=== PATIENT | female | born 1960 | race African-American/Black ===

== ENCOUNTER 2018-08-16 12:15 | Outpatient (CLI) | payer OTHER | END 2018-08-16 12:16 | disposition home or self-care (01) | LOC: BICMAMMO 12:15 | PROVIDERS: ATTEND Family Medicine | DX: Z12.31 Encounter for screening mammogram for malignant neoplasm of breast (principal); Z80.3 Family history of malignant neoplasm of breast | CPT/HCPCS: 77063; 77067 ==

== ENCOUNTER 2019-04-20 22:53 | Inpatient (IN) | payer SELFPAY ==
[2019-04-20 23:32] LABS: Anion Gap 19 mmol/L (10-20); BUN (Urea Nitrogen) 76 mg/dL (9.8-20.1); Calc. Creatinine Clearance 0 mL/min (70-130); Calcium 10.2 mg/dL (7.8-10.44); Carbon Dioxide 17 mmol/L (22-29); Chloride 116 mmol/L (98-107); Estimated GFR-MDRD 16; Potassium 4.3 mmol/L (3.5-5.1); Sodium 148 mmol/L (136-145)
[2019-04-20 23:44] LABS: Glucose 809 mg/dL (70-105)
[2019-04-21 01:51] LABS: Anion Gap 24 mmol/L (10-20); BUN (Urea Nitrogen) 86 mg/dL (9.8-20.1); Calc. Creatinine Clearance 0 mL/min (70-130); Calcium 10.6 mg/dL (7.8-10.44); Carbon Dioxide 16 mmol/L (22-29); Chloride 119 mmol/L (98-107); Estimated GFR-MDRD 15; Glucose 795 mg/dL (70-105); Potassium 6.7 mmol/L (3.5-5.1); Sodium 152 mmol/L (136-145)
[2019-04-21] MEDS ORDERED: Ondansetron ODT 4 MG TAB PO PRN (03:02)
[2019-04-21] MEDS ORDERED: Sodium Chloride 0.9% 1,000 ML IV PRN ×3 (03:02)
[2019-04-21] MEDS ORDERED: Ondansetron PF 4 MG/2 ML Vial IVP PRN (03:02)
[2019-04-21] MEDS ORDERED: D5 1/2 NS w/20 mEq KCL 1,000 ML IV PRN (03:02)
[2019-04-21] MEDS ORDERED: Dextrose 5 %-0.45 % NaCl 1,000 ML IV PRN (03:02)
[2019-04-21] MEDS ORDERED: CCU Electrolyte Replacement 1 EACH IVPB ONE (03:02)
[2019-04-21] MEDS ORDERED: Acetaminophen 650 MG Suppository PR PRN (03:02)
[2019-04-21] MEDS ORDERED: NS 0.9% w/ 20 MEQ KCL 1,000 ML IV PRN ×2 (03:02)
[2019-04-21] MEDS ORDERED: Acetaminophen 500 MG TAB PO PRN (03:02)
[2019-04-21] MEDS ORDERED: Lorazepam 2 MG/ML VIAL SLOW IVP PRN (03:05)
[2019-04-21] MEDS: Sodium Chloride 0.9% 1,000 ML IV PRN ×2 (03:15→05:20)
[2019-04-21 03:18] LABS: Anion Gap 21 mmol/L (10-20); BUN (Urea Nitrogen) 80 mg/dL (9.8-20.1); Calc. Creatinine Clearance 0 mL/min (70-130); Carbon Dioxide 16 mmol/L (22-29); Chloride 118 mmol/L (98-107); Estimated GFR-MDRD 16; Potassium 5.1 mmol/L (3.5-5.1); Sodium 150 mmol/L (136-145)
[2019-04-21 03:32] LABS: Glucose 756 mg/dL (70-105)
[2019-04-21] MEDS ORDERED: Potassium Phosphate 9 MMOL in Sodium Chloride 0.9% 100 ML IVPB PRN (03:43)
[2019-04-21] MEDS ORDERED: Magnesium Oxide 400 MG TAB PO PRN ×2 (03:43)
[2019-04-21] MEDS ORDERED: Potassium Chloride 40 MEQ in Sodium Chloride 0.9% 250 ML 250 ML IVPB PRN (03:43)
[2019-04-21] MEDS ORDERED: Potassium Phosphate 12 MMOL in Sodium Chloride 0.9% 250 ML 250 ML IV PRN (03:43)
[2019-04-21] MEDS ORDERED: CCU ELECTROLYTE REPLACEMENT PROTOCOL FS PRN (03:43)
[2019-04-21] MEDS ORDERED: Potassium Phosphate 15 MMOL in Sodium Chloride 0.9% 250 ML 250 ML IV PRN (03:43)
[2019-04-21] MEDS ORDERED: Potassium Chloride 20 MEQ TAB PO PRN (03:43)
[2019-04-21] MEDS ORDERED: Potassium Chloride 40 MEQ in Premix Bag 1 BAG IVPB PRN (03:43)
[2019-04-21] MEDS ORDERED: PHOS-NAK 1 PKT PACK PO PRN ×2 (03:43)
[2019-04-21] MEDS ORDERED: Magnesium 2 GM/50 ML 2 GM in Premix Bag 1 BAG IVPB PRN (03:43)
[2019-04-21] MEDS ORDERED: HUMULIN R 100 UNITS in Sodium Chloride 0.9% 100 ML IVPB SCH (03:45)
[2019-04-21] MEDS: cefTRIAXone\\ROCEPHIN 1 GM in Sodium Chloride 0.9% 100 ML IVPB SCH (05:05)
[2019-04-21 05:59] LABS: Glucose 723 mg/dL (70-105)
[2019-04-21 07:54] LABS: Hemoglobin A1c Greater than 14.0 % (4.0-6.0)
[2019-04-21 08:16] LABS: Phosphorus 4.6 mg/dL (2.3-4.7)
[2019-04-21 08:32] LABS: Magnesium 3.5 mg/dL (1.6-2.6)
[2019-04-21] MEDS: Famotidine/PF 20 mg/2ml Vial SLOW IVP SCH (08:40)
[2019-04-21] MEDS ORDERED: Heparin 1,000 UNITS/ML VIAL ONE (09:30)
[2019-04-21 10:20] LABS: Anion Gap 22 mmol/L (10-20); BUN (Urea Nitrogen) 81 mg/dL (9.8-20.1); Calc. Creatinine Clearance 25 mL/min (70-130); Calcium 9.4 mg/dL (7.8-10.44); Carbon Dioxide 12 mmol/L (22-29); Estimated GFR-MDRD 16; Potassium 4.9 mmol/L (3.5-5.1); Sodium 155 mmol/L (136-145)
[2019-04-21 10:24] LABS: Chloride 126 mmol/L (98-107); Glucose 568 mg/dL (70-105)
--- NOTE | 2019-04-21 10:31 | HP ---
PRIMARY CARE PROVIDER: Wendi Rojo DO. CHIEF COMPLAINT: Altered mental status and hyperglycemia. HISTORY OF PRESENT ILLNESS: This is a 59-year-old female, who was transferred to [facility] Emergency Department after presenting to [facility] due to altered mental status, lethargy, and hyperglycemia. The history is obtained after review of the emergency room records as well as discussions with the emergency room attending and family members at the bedside. The patient is unable to provide any coherent history. Apparently, the patient had symptoms of lethargy, increased urination, decreased activity level, difficulty walking with generalized weakness over the last 4 to 5 days. The symptoms progressed in the last 24 hours, at which point the patient was found slumped over her bed and unresponsive. No family members were reported with similar symptoms and no exposure history noted. The patient had been noted with decreased oral intake, stating she was very thirsty. In the emergency room, the patient underwent general evaluation including metabolic screening, showing a glucose over 1300. The patient was initiated on aggressive IV fluids and treated with DKA protocol. The patient receives subcutaneous and insulin infusion as well as aggressive IV fluid hydration. The patient remained lethargic with confusion and altered mentation and was referred to the hospital service for evaluation. PAST MEDICAL HISTORY: 1. Hypertension. 2. Hyperlipidemia. PAST SURGICAL HISTORY: Reviewed and negative. CURRENT MEDICATIONS: 1. Metoprolol tartrate 50 mg p.o. daily. 2. Albuterol sulfate 90 mcg inhaled daily p.r.n. 3. Lisinopril and hydrochlorothiazide 20/25 mg one tablet p.o. daily. 4. Sertraline 50 mg p.o. daily. 5. Pravachol 40 mg p.o. daily. ALLERGIES: NO KNOWN DRUG ALLERGIES. FAMILY HISTORY: Positive for diabetes mellitus. SOCIAL HISTORY: Resides in [place], [place]. No current alcohol, tobacco, or illicit drug use. REVIEW OF SYSTEMS: Unobtainable as the patient with metabolic encephalopathy and unable to provide any history or response to questions. PHYSICAL EXAMINATION: VITAL SIGNS: On admission: Blood pressure 116/66, pulse 113, respiratory rate 16, temperature 98 degrees Fahrenheit, and O2 saturation 98% on room air. GENERAL APPEARANCE: This is a 59-year-old female, agitated, moving her extremities randomly, in no acute distress. HEENT: Pupils are equal, round, and reactive to light and accommodation. Extraocular muscles are intact. No scleral icterus. No conjunctival injection. Nares patent. OP is clear. Oral mucosa dry. NECK: Supple. No cervical adenopathy. No thyromegaly. No carotid bruits. No JVD appreciated. Cervical spine with full active and passive range of motion. No meningeal signs noted. CHEST: Lungs are clear to auscultation bilaterally. CARDIOVASCULAR: S1 and S2 with tachycardia. No murmur, rub, or gallop appreciated. ABDOMEN: Obese, soft, nontender, and nondistended. Bowel sounds are positive in all 4 quadrants. No hepatosplenomegaly. No abdominal bruits. No rebound or guarding appreciated. EXTREMITIES: Warm and dry with poor turgor. Pulses are palpable distally at the dorsalis pedis, posterior tibial, and popliteal arteries bilaterally. Capillary refill less than 2 seconds. NEUROLOGIC: A and O x0. Agitated, flailing arms randomly. Does not follow commands. PERTINENT LABORATORY AND X-RAY FINDINGS: Sodium 150, potassium ranged between 4.3 to 6.7, carbon dioxide level ranged between 16 to 17, BUN ranged between 76 to 86, creatinine ranged between 3.53 to 4.70. Lactic acid level of 11.2. Troponin-I of 0.159. Glucose ranged between 795 to 1320. Calcium ranged between 10.2 to 12.3. BNP 21. CBC showed a white blood cell count of 15, hemoglobin 17.7, hematocrit 61.1, and platelet count 320 with normal differential. Urinalysis positive for glucose, leukocyte esterase with greater than 50 wbc's per high-power field, and 4+ bacteria. Urine drug screen dated 04/20/2019, negative. CT of the brain without contrast dated 04/20/2019, showed no acute intracranial process. Portable chest x-ray dated 04/20/2019, showed no acute cardiopulmonary process. EKG dated 04/20/2019, by my interpretation, shows sinus tachycardia with heart rates in the 120s. Attenuated R-waves noted in the precordial leads. Normal axis. No acute ST-T wave changes appreciated. ASSESSMENT AND PLAN: 1. Diabetic ketoacidosis. The patient will be admitted to the intermediate care unit. We will continue insulin infusion at 6 units/hour. Continue aggressive IV fluid hydration and monitor clinical response. Questionable focal infectious process with suspected urinary tract infection. See below for management. Check A1c and beta-hydroxybutyrate level. Dietitian consult in the a.m. 2. Hypernatremia. Suspect secondary to severe dehydration in the context of #1. Continue normal saline and monitor serial sodium values. 3. Hyperkalemia. Improved with IV fluid hydration. Continue serial potassium monitoring. 4. Acute kidney injury. Suspect multifactorial including severe dehydration and diabetic ketoacidosis. Avoid nephrotoxic agents and limit contrast exposure. Repeat creatinine. 5. Lactic acidosis. Secondary to #1. Continue IV fluid hydration. Serial monitoring. 6. Urinary tract infection. Suspected given initial urinalysis. Continue Rocephin 1 g IV q.24 h. await final urine culture results. 7. Prophylaxis. Sequential compression devices while in bed. Physical therapy evaluation for functional assessment. Pepcid 20 mg IV q.12 h. 8. Code status is full. Surrogate medical decision maker is the patient's daughter. Job ID: [id number]
--- NOTE | 2019-04-21 11:02 | CON ---
DATE OF CONSULTATION: HISTORY OF PRESENT ILLNESS: Jessie Du is a 59-year-old female from [place], who presented with metabolic encephalopathy. She is confused. CT of the head is normal. Chest x-ray is normal. Blood sugar was markedly elevated in the high 700 range. The daughter is at the bedside who said the patient has not been eating for a period of time. She sees a local doctor. PAST MEDICAL HISTORY: Pertinent for hypertension. Apparently, has an inhaler. She uses albuterol. Depression. PREVIOUS SURGERIES: Apparently none. Admission blood sugar was 320. REVIEW OF SYSTEMS: Otherwise unremarkable. HOME MEDICATIONS: Includes apparently, 1. Albuterol inhaler. 2. Pravastatin 40. 3. Metoprolol 50 two a day. 4. Zoloft 50. 5. Lisinopril/hydrochlorothiazide 20/25. PHYSICAL EXAMINATION: VITAL SIGNS: Blood pressure 110/54, temperature 97, pulse 102, respiratory rate 18. CHEST: Decreased breath sounds. No wheezing. CARDIAC: Normal S1, S2. No gallops. ABDOMEN: No masses. LABORATORY DATA: White count is 15,000, H and H and 17 and 61, platelet count is normal. Sodium is 150, creatinine is 3.5 ASSESSMENT: 1. Nonketotic hyperosmolar coma. 2. Severe dehydration. 3. Renal failure, prerenal. 4. Tobacco abuse. 5. Depression. PLAN: I agree with present treatment. I started low-dose Lantus. Continue supportive care, PT. Continue hydration. Continue low-dose insulin. Consultation note, 70 minutes, 50% direct patient care. Job ID: [id number]
[2019-04-21 11:53] LABS: Hemoglobin 15.1 g/dL (12.0-16.0); Mean Corpuscular HGB CONC 33.9 g/dL (32.0-36.0); Mean Corpuscular Volume 85.6 fL (78.0-98.0); Red Blood Cell (RBC) Count 5.21 mill/uL (4.20-5.40); White Blood Cell (WBC) Count 16.8 thou/uL (4.8-10.8)
[2019-04-21 11:57] LABS: Band 22 % (5-11); Lymphocytes 11 % (21-51); MDiff Complete? YES; Mean Platelet Volume 11.3 fL (7.4-10.4); Monocytes 2 % (0-10); Neutrophil 65 % (42-75); Platelet Count 75 thou/uL (130-400); Platelet Morphology Comment Appears Decreased; RBC Distribution Width 12.6 % (11.5-14.5); RBC Morphology Normal
--- NOTE | 2019-04-21 13:13 | PRG ---
DATE OF SERVICE: 04/21/2019 SUBJECTIVE: The patient is seen and examined at the bedside. She is still quite confused and pulled out IVs, and one of her family members is present in the room during my visit. She states that the patient looks better than what she was at the time of admission, but she is still very confused. OBJECTIVE: VITAL SIGNS: Blood pressure is 154/87, pulse is 109, O2 saturation is 97% on room air, and her temperature is 97.1. GENERAL: She tries to follow my commands, but for short most of the time. HEENT: Her sclerae are nonicteric. Oral mucosa is very dry. NECK: Supple. Obese. LUNGS: Clear. HEART: S1-S2 normal. Tachycardic. ABDOMEN: Soft and nondistended. Bowel sounds are present. EXTREMITIES: No clubbing, cyanosis, or edema. NEUROLOGICAL: She is trying to follow my commands, but for short very often. She is able to move her all 4 extremities. LABORATORY DATA: Labs showed white count of 16.8, hematocrit 44.6, hemoglobin 15.1, and platelet count is 75,000. Bands 22. Her sodium is 155, potassium 4.9, chloride 126, CO2 of 12, BUN is 81, creatinine 3.47, and glucose is 568 and the followup glucose is 453. TSH third generation is 1.57. Beta-hydroxybutyrate is 0.19. IMPRESSION: 1. Nonketotic hyperosmolar coma. 2. Severe dehydration. 3. Renal failure. 4. Thrombocytopenia. 5. Possible urinary tract infection. PLAN: We are going to change her fluids since she is becoming hypernatremic and hyperchloremic. I think there is more derangement of her kidney function because she is not improving quickly as we think for prerenal azotemia. We will get high school physical education teacher involved and we will continue Rocephin for possible UTI. Job ID: [id number]
[2019-04-21] MEDS ORDERED: 1/2 NS w/KCL 20 mEq 1,000 ML IV SCH (13:15)
--- NOTE | 2019-04-21 17:02 | SPC ---
Ultrasound-guidedleftupper extremity PICC placement: 04/21/2019 HISTORY: UTI, sepsis, IV antibiotics FINDINGS: Informed consent obtained prior to the procedure. This procedure was performed at the patie nt's bedside. Left antecubital fossa prepped and draped in normal sterile fashion. The left basilic vein is small a nd was thus not targeted. Skin overlying theleft brachialvein anesthetized with 1% buffered lidocaine. With direct sonographic guidance, vascular access is obtained via the left brachialvein an d an 0.018in wire was advanced to the cavoatrial junction. Intravascular length is calculated at 43 cm and of the PICC is cut accordingly. Needle is removed and replaced with a peel-away sheath. The PICC was advanced over the wire. Wire and peel-away sheath were removed. The tip of the catheter overlies the cavoatrial junction. The port flushes well and the catheter is ready for use. IMPRESSION: Successful ultrasound guided placement of a leftupper extremity PICC.
[2019-04-21 17:16] LABS: Actual Bicarbonate (HCO3a) 15.4 mEq/L (22-28); Base Excess (BEa) -8.2 mEq/L (-2.0 to +3.0); CO2 Tension 27.7 mmHg (35.0-45.0); Calcium, Ionized 1.17 mmol/L (1.12-1.30); Carboxyhemoglobin (COHb) 0.6 gm% (0.0-3.0); Hemoglobin (Hb) 14.8 g/dL (12.0-16.0); O2 Tension (PaO2) 83.5 mmHg (> 80.0); Potassium - ABG Lab 4.24 mmol/L (3.70-5.30); pH, Arterial 7.36 (7.35-7.45)
[2019-04-21 17:42] LABS: Anion Gap 12 mmol/L (10-20); BUN (Urea Nitrogen) 81 mg/dL (9.8-20.1); Calc. Creatinine Clearance 25 mL/min (70-130); Calcium 8.5 mg/dL (7.8-10.44); Carbon Dioxide 19 mmol/L (22-29); Estimated GFR-MDRD 16; Glucose 306 mg/dL (70-105); Potassium 4.2 mmol/L (3.5-5.1); Sodium 155 mmol/L (136-145)
[2019-04-21] MEDS: D5 1/4 NS 1,000 ML IV SCH ×2 (17:46→20:41)
[2019-04-21] MEDS: Dextrose 10% in Water 1,000 ML IV SCH (17:46)
[2019-04-21 17:59] LABS: Chloride 128 mmol/L (98-107)
[2019-04-21 18:34] LABS: ALV-art Gradient 31.605 (0-20); Puncture Site RRAD
[2019-04-21] MEDS: HUMULIN R 100 UNITS in Sodium Chloride 0.9% 100 ML IVPB SCH (20:41)
[2019-04-21] MEDS ORDERED: Insulin Glargine 10 UNITS in Pre-Filled Syringe 1 EACH SC SCH (21:00)
[2019-04-21 21:18] LABS: Lactic Acid 2.6 mmol/L (0.5-2.2)
[2019-04-21 21:20] LABS: Anion Gap 12 mmol/L (10-20); BUN (Urea Nitrogen) 83 mg/dL (9.8-20.1); Calc. Creatinine Clearance 23 mL/min (70-130); Calcium 8.2 mg/dL (7.8-10.44); Carbon Dioxide 19 mmol/L (22-29); Estimated GFR-MDRD 15; Glucose 392 mg/dL (70-105); Potassium 3.9 mmol/L (3.5-5.1); Sodium 153 mmol/L (136-145)
[2019-04-21 21:31] LABS: Chloride 126 mmol/L (98-107)
[2019-04-22] MEDS: Dextrose 10% in Water 1,000 ML IV SCH (00:04)
[2019-04-22] MEDS: Labetalol HCl 100 MG/20 ML VIAL SLOW IVP PRN ×2 (01:16→03:19)
[2019-04-22 01:26] LABS: Anion Gap 13 mmol/L (10-20); BUN (Urea Nitrogen) 83 mg/dL (9.8-20.1); Calc. Creatinine Clearance 20 mL/min (70-130); Calcium 7.8 mg/dL (7.8-10.44); Carbon Dioxide 17 mmol/L (22-29); Chloride 125 mmol/L (98-107); Estimated GFR-MDRD 12; Glucose 424 mg/dL (70-105); Sodium 151 mmol/L (136-145)
[2019-04-22] MEDS: D5 1/4 NS 1,000 ML IV SCH ×4 (02:27→22:09)
[2019-04-22] MEDS: cefTRIAXone\\ROCEPHIN 1 GM in Sodium Chloride 0.9% 100 ML IVPB SCH (03:18)
[2019-04-22 03:56] LABS: Anion Gap 13 mmol/L (10-20); BUN (Urea Nitrogen) 84 mg/dL (9.8-20.1); Calc. Creatinine Clearance 19 mL/min (70-130); Calcium 7.9 mg/dL (7.8-10.44); Carbon Dioxide 18 mmol/L (22-29); Chloride 125 mmol/L (98-107); Estimated GFR-MDRD 12; Glucose 375 mg/dL (70-105); Potassium 3.9 mmol/L (3.5-5.1); Sodium 152 mmol/L (136-145)
[2019-04-22] MEDS: HUMULIN R 100 UNITS in Sodium Chloride 0.9% 100 ML IVPB SCH ×2 (05:59→17:16)
--- NOTE | 2019-04-22 07:11 | CON ---
DATE OF CONSULTATION: 04/21/2019 REQUESTING PHYSICIAN: Dr. Abrams. REASON FOR CONSULTATION: Acute kidney injury and severe hypernatremia. HISTORY OF PRESENT ILLNESS: A 59-year-old female with past medical history significant for hypertension and hyperlipidemia, admitted due to uncontrolled diabetes with hyperglycemia and diabetic ketoacidosis associated with electrolyte derangements and acute kidney injury. The patient was admitted on transfer from [facility] due to altered mental status, lethargy, and hyperglycemia. The patient reportedly was brought in due to generalized weakness in the last 4 to 5 days and was subsequently found slumped over her bed and unresponsive. Evaluation in the ER showed hyperglycemia of 1300, associated with features of diabetic ketoacidosis, dehydration, and acute kidney injury. The patient was started on insulin infusion as well as IV fluid therapy with improvement in blood glucose. However, sodium has gone up from 148 on admission to 155 associated with excessive sleepiness, also CO2 has gone down from 16 on admission to 12, hence Nephrology consult. The patient was unable to provide any significant medical history due to mental status. Review of medical records showed that the patient had normal electrolytes and creatinine of 1.09 on July 30, 2018. Of note, the patient is not a known diabetic, but family reported increased urination and hemoglobin A1c done earlier during this admission was 14. The patient also had hyperkalemia, which has improved. PAST MEDICAL HISTORY: 1. Hypertension. 2. Hyperlipidemia. PAST SURGICAL HISTORY: Could not be obtained. FAMILY HISTORY: Review of medical records showed that this runs in the family. SOCIAL HISTORY: Could not be obtained due to mental status. However, it is reported in the medical record that the patient does not drink alcohol nor smoke nor use recreational drugs. ALLERGIES: NO KNOWN DRUG ALLERGIES REPORTED. MEDICATIONS: Home medications could not be verified, but it is reported that the patient is on the followin. Metoprolol 50 p.o. daily. 2. Albuterol daily p.r.n. 3. Lisinopril and hydrochlorothiazide 20/25 mg daily. 4. Sertraline 50 mg p.o. daily. 5. Pravachol 40 mg p.o. daily. Current hospital medications: 1. Ceftriaxone 1 g IV daily. 2. Half-normal saline plus KCL at 250 mL/h. 3. Humulin regular insulin infusion 9 units per hour. 4. Pepcid 20 mg IV daily. 5. Acetaminophen 650 mg q.4 p.r.n. REVIEW OF SYSTEMS: This could not be obtained due to the patient's condition. PHYSICAL EXAMINATION: VITAL SIGNS: Temperature 97.1, heart rate 126, blood pressure 134/115, respiratory rate 34, SpO2 of 95%. HEENT: Normocephalic and atraumatic. Oral mucosa is dry. NECK: Supple, nontender. No obvious masses or lymphadenopathy. RESPIRATORY: Fair air entry bilateral with some transmitted breath sounds. No obvious crackle or rhonchi appreciated. CARDIOVASCULAR: Regular rhythm and rate, but tachycardic. GI: Obese, soft, nontender, nondistended with normal bowel sounds. EXTREMITIES: Grossly normal looking, atraumatic with no edema or erythema. Distal pulses are palpable. NEUROLOGIC: Awake, lethargic. Wakes up with stimulation. Oriented to person. DIAGNOSTIC DATA: CBC today showed WBC count of 16.8, hemoglobin of 15.1, MCV of 85.6, and platelet of 75. Of note, WBC was 15 on presentation, while hemoglobin was 17.7, and platelet was 320 on presentation. Most recent BMP showed sodium 155, potassium 4.9, chloride 126, CO2 of 12, BUN 81, creatinine 3.47, glucose 568, calcium 9.4. Creatinine on presentation was 3.60 while creatinine was 1.04 on July 30, 2018. Beta hydroxybutyrate was elevated at 0.34. Urinalysis on presentation on April 20 showed cloudy urine with pH of 5.0, specific gravity of 1.010, negative protein, ketone, nitrite. Glucose was more than 1000 mg/dL. White blood was small and bilirubin was small. Leukocyte esterase also was small. Microscopy showed 7 to 10 rbc and greater than 50 wbc. IMAGING STUDIES: Chest x-ray performed on presentation showed normal-sized cardiomediastinal silhouette with no evidence of consolidation mass or pleural effusion. CT scan of the brain showed preservation of cortical bhatia matter differentiation with no mass effect or midline shift. No acute intracranial process was noted. ASSESSMENT: 1. Uncontrolled diabetes mellitus with diabetic ketoacidosis and severe hyperglycemia. 2. Diabetic ketoacidosis: The patient is still hyperglycemic and anion gap has not closed. 3. Severe metabolic acidosis with CO2 of 12. 4. Acute hypernatremia: This is due to free water deficit. Sodium level has gone up from 148 on admission to 155. 5. Acute metabolic encephalopathy: Due to diabetic ketoacidosis and electrolyte derangements as well as hypernatremia. 6. Acute kidney injury: The patient had normal creatinine of 1.04 on July 30, 2018. Currently, creatinine is 3.57. This is due to hemodynamic changes related to volume depletion from hyperglycemia induced diuresis. 7. Hyperkalemia: Due to acute kidney injury and metabolic acidosis, improved. 8. Uncontrolled diabetes mellitus with hemoglobin A1c of 14. The patient is not a known diabetes. This is new diagnosis. 9. Presumed urinary tract infection. PLAN: 1. We will get urine electrolytes as well as ABG. 2. We will discontinue half-normal saline with KCl and start D5 with quarter saline and run that at 250 mL/h. 3. We will continue insulin infusion at 9 units/hour with no titration. If blood sugar drops down, we will provide more dextrose to continue running the insulin infusion, to be able to close the metabolic acidosis. 4. We will allow liberal fluid intake once the patient can tolerate. 5. We will monitor potassium and magnesium as well as phosphorus and replete as needed. 6. We will monitor renal function. Further recommendation and treatment to follow depending on hospital course and review of other diagnostic test. The patient remained critically ill with guarded prognosis. We will follow along with you. Many thanks for involving us in the care of this patient. Job ID: [id number]
[2019-04-22 07:58] LABS: Hemoglobin 13.3 g/dL (12.0-16.0); Mean Corpuscular HGB CONC 33.4 g/dL (32.0-36.0); Mean Corpuscular Volume 86.9 fL (78.0-98.0); Mean Platelet Volume 11.8 fL (7.4-10.4); Platelet Count 45 thou/uL (130-400); RBC Distribution Width 12.9 % (11.5-14.5); Red Blood Cell (RBC) Count 4.58 mill/uL (4.20-5.40)
[2019-04-22 08:11] LABS: Lactic Acid 2.5 mmol/L (0.5-2.2)
--- NOTE | 2019-04-22 08:41 | CT ---
CT Stone Protocol 04/22/2019 7:00 AM HISTORY: Acute renal insufficiency. Elevated creatinine. COMPARISON: None. Technique: Multiple contiguous axial CT images are obtained through the abdomen and pelvis without IV contrast. Coronal reformats are provided. FINDINGS: This examination is limited for the evaluation of solid organs and vascular structures due to the lac k of intravenous contrast. Lower Chest: Tiny right pleural effusion is present. There is bibasilar atelectasis. There is diminished attenuation of the liver related to diffuse fatty infiltration. Patient's arms ov erlie the abdomen resulting in artifact and limiting evaluation of of the parenchymal organs. There is mild heterogeneity of the spleen, but this may be attributable to artifact. The pancreas and right adrenal gland demonstrate a grossly normal nonenhanced CT appearance. There is slight nodularity involving the left adrenal gland, but this unable to be further evaluated due to artifact. There is a difficult to characterize hypodense lesion seen in the inferior pole right kidney measurin g 2.2 cm. There is also suggestion of a small subcentimeter hypodense lesion in the midportion right kidney also difficult further characterize. Mild calyceal dilatation involves the inferior pole right renal collecting system. The right ureter is tortuous and demonstrates prominent dilatation with improvement in the dilatation further distally, the right ureter remains dilated to the level of the right UVJ. There is also mild dilatation of the left ureter to the level of the uterus. No significant hydronephrosis is present on the left. Exact etiology for prominent ureteral dilatation o n the right is uncertain. The ureter proximally on the right is tortuous. The uterus is enlarged and lobulated in appearance with masses within the uterus. There is a large ca lcified mass seen within the central body of the uterus measuring 7.4 cm. This may represent a very large uterine fibroid which is partially calcified. Urinary bladder is mostly decompressed with Arceo catheter in place. Gas is present in the urinary bl adder likely related to the catheterization. There is a trace amount of free fluid in each paracolic gutter and in the pelvis. Mild degenerative changes are seen in the thoracic spine. 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 IMPRESSION: 1. Moderate to severe dilatation of the majority of the right ureter down to level of the right UVJ. No calculus is visualized. There is only mild dilatation of the inferior pole right renal calyx. There is mild prominence of the left ureter but to a much lesser extent compared to the right. The ex act etiology for prominent dilatation of the right ureter is uncertain based on this exam. Findings could be related to the enlarged fibroid uterus. 2. Diffuse fatty infiltration of the liver. 3. Nonspecific heterogeneity of the spleen. This may be attributable to significant artifact in this region as the patient's arms are down by the side limiting adequate evaluation. 4. Tiny right pleural effusion with bibasilar parenchymal densities probably due to bibasilar atelect asis. 5. Diffuse fatty infiltration of the liver which is borderline enlarged measuring 17.8 cm in cranioca udal dimensions. 6. Tiny amount of free fluid in the abdomen and pelvis. 7. Difficult to characterize hypodense lesions in the right kidney.
[2019-04-22 08:52] LABS: Band 25 % (5-11); CKMB 7.4 ng/mL (0-6.6); Lymphocytes 11 % (21-51); MDiff Complete? YES; Neutrophil 63 % (42-75); Reactive Lymphocytes 1 % (0-10)
[2019-04-22 08:53] LABS: Nucleated RBC 1 % (0); RBC Morphology Normal
[2019-04-22 09:25] LABS: Anion Gap 14 mmol/L (10-20); BUN (Urea Nitrogen) 85 mg/dL (9.8-20.1); Calc. Creatinine Clearance 16 mL/min (70-130); Calcium 7.8 mg/dL (7.8-10.44); Carbon Dioxide 15 mmol/L (22-29); Estimated GFR-MDRD 10; Glucose 319 mg/dL (70-105); Sodium 151 mmol/L (136-145)
[2019-04-22 09:29] LABS: Chloride 126 mmol/L (98-107)
--- NOTE | 2019-04-22 09:33 | PRG ---
DATE OF SERVICE: 04/22/2019 SUBJECTIVE: Jessie Du, who has nonketotic hyperosmolar coma with severe dehydration, remains encephalopathic. OBJECTIVE: VITAL SIGNS: Temperature 98, blood pressure respiratory rate 18. GENERAL: She does respond, opening her eyes. LABORATORY DATA: White count 11,000, H and H and 13 and 39, platelet count is only 45,000. Creatinine is 4, BUN is 81, sodium 152. IMAGING STUDIES: She had a CT brain done. She had a CT abdomen done. Nephrology was consulted yesterday. There was some mild hydronephrosis. IMPRESSION AND PLAN: 1. Metabolic encephalopathy. 2. Nonketotic hyperosmolar coma with renal failure, dehydration. 3. Prominent right ureter dilatation, etiology unclear. 4. At this stage, continue hydration, insulin, low-dose empiric antibiotics and supportive care. Job ID: [id number]
--- NOTE | 2019-04-22 09:51 | CT ---
CT HEAD WITHOUT CONTRAST: Date: 04/22/19 COMPARISON: None. HISTORY: Altered mental status. TECHNIQUE: Axial CT imaging at 5 mm intervals from vertex through skull base without contrast. FINDINGS: The imaged paranasal sinuses and mastoid air cells are well aerated. No displaced calvarial fracture. No intracranial hemorrhage, midline shift, mass effect, or ventricular enlargement. IMPRESSION: No intracranial hemorrhage. POS: OFF
[2019-04-22] MEDS: Famotidine/PF 20 mg/2ml Vial SLOW IVP SCH (10:28)
--- NOTE | 2019-04-22 11:00 | RAD ---
Chest AP view INDICATION: Evaluate respiratory status COMPARISON: April 20, 2019 FINDINGS: Lungs:The lungs are clear Cardiac silhouette:The cardiomediastinal silhouette appears within normal limits. Pulmonary vasculature:Normal Pleural spaces:No pleural effusion or pneumothorax is demonstrated. Upper abdomen:No abnormality seen. Osseous structures: No acute osseous abnormality. Additional findings:There is a new left-sided PICC line with the tip projecting the region of the cav oatrial junction. IMPRESSION: No acute cardiopulmonary abnormality. New left-sided PICC line.
--- NOTE | 2019-04-22 12:43 | PRG ---
DATE OF SERVICE: 04/22/2019 SERVICE: Nephrology. SUBJECTIVE: A 59-year-old female admitted due to acute encephalopathy and uncontrolled diabetes with DKA. Nephrology is seeing patient for abnormal electrolytes as well as acute kidney injury and metabolic acidosis. The patient is still altered, but mentation has improved. There is no history of nausea, vomiting, abdominal pain, or leg swelling. OBJECTIVE: VITAL SIGNS: Temperature 99.2, pulse 113, respiratory rate 38, SpO2 97 on room air, blood pressure is 148/76. GENERAL: Acutely ill-looking female, in mild distress. Afebrile. Anicteric. Acyanotic. HEENT: Normocephalic, atraumatic. Oral mucosa is dry. CARDIOVASCULAR: Regular rhythm and rate, but tachycardic. RESPIRATORY: Fair air entry bilaterally with some transmitted breath sounds. Tachypnea noted. GI: Obese, soft, nontender, nondistended with normal bowel sounds. EXTREMITIES: Grossly normal looking, but dry. No erythema or edema. DRAWER IN DOBBY LOOM: The patient is sleepy, but easily arousable. Oriented to person and place. Memory lapse is noted. Cranial nerves 2 through 12 are grossly intact. The patient moves all extremities. DIAGNOSTIC DATA: CBC today showed WBC count of 11, hemoglobin of 13.3, MCV of 86.9, platelet of 45. Of note, on presentation, platelet was above 200. BMP today showed sodium 151, potassium 4.0, chloride 126, CO2 of 15, anion gap 14, BUN 85, creatinine 5.26, glucose 319, calcium 7.8. Lactic acid is elevated at 2.5. Troponin also is elevated at 1.798. Chest x-ray showed clear lungs as well as normal cardio mediastinal silhouette with no pleural effusion or pneumothorax. CT scan of the abdomen and pelvis stone protocol showed moderate to severe dilatation of right ureter down to the right UVJ with no obvious calculus visualized. Mild left-sided hydroureter also was noted. Nonspecific heterogeneity of the spleen was also noted as well as diffuse fatty infiltration of the liver and hypodense 2.2 cm lesion in the right kidney. ASSESSMENT: 1. Acute renal failure. Renal failure is worsening overnight from 2 to 5. The patient is clinically dry and CT showed hydronephrosis bilaterally as well as lobulated uterus concerning for fibroid. This seems to be multifactorial in etiology from hemodynamic factors as well as obstructive uropathy. ? ATN. 2. Hypernatremia: Due to free water deficit. Improving with provision of free water. 3. Severe metabolic acidosis: Improving. This is felt to be due to sepsis and diabetic ketoacidosis. 4. Acute metabolic encephalopathy: Multifactorial from sepsis, metabolic acidosis, acute kidney injury and multiple electrolyte derangements. 5. Hyperkalemia: Resolved. 6. Obstructive uropathy with bilateral hydronephrosis, which is severe on the right side. 7. Urinary tract infection. 8. New diagnosis of diabetes, which is uncontrolled with hemoglobin A1c of 14. 9. Sepsis. 10. Acute hepatopathy. Most likely due to sepsis PLAN: 1. We will give a bolus of lactated Ringer's as patient is clinically dry. Urology consult has been requested for evaluation and possible relief of obstruction on the right kidney. We will broaden the antibiotics. 2. We will continue to provide free water to correct hypernatremia which is acute. 3. Insulin therapy as per primary attending. 4. We will repeat ABG and renal function and will start bicarb infusion if indicated We will continue to monitor renal function electrolytes and address that as needed. There is no need for dialysis at this time. We will follow along with you and further recommendation to follow depending on hospital course and review of ordered diagnostic tests. Job ID: [id number] [facility]
[2019-04-22 13:07] LABS: Actual Bicarbonate (HCO3a) 14.3 mEq/L (22-28); Base Excess (BEa) -8.1 mEq/L (-2.0 to +3.0); Calcium, Ionized 1.11 mmol/L (1.12-1.30); Carboxyhemoglobin (COHb) 0.7 gm% (0.0-3.0); Hemoglobin (Hb) 13.6 g/dL (12.0-16.0); O2 Tension (PaO2) 71.5 mmHg (> 80.0); Potassium - ABG Lab 3.72 mmol/L (3.70-5.30); pH, Arterial 7.42 (7.35-7.45)
[2019-04-22 13:14] LABS: CO2 Tension 22.6 mmHg (35.0-45.0); Puncture Site RRA
[2019-04-22] MEDS: MEROPENEM 1 GM/50 ML 1 GM in Premix Bag 1 BAG IVPB SCH (13:30)
[2019-04-22 13:41] LABS: Critical Call Chem Troponin I RESULT DECREASING
[2019-04-22 13:52] LABS: ALT (SGPT) 2469 U/L (8-55); Albumin 2.4 g/dL (3.5-5.0); Alkaline Phosphatase 106 U/L (40-110); Anion Gap 14 mmol/L (10-20); BUN (Urea Nitrogen) 78 mg/dL (9.8-20.1); Bilirubin, Total 0.8 mg/dL (0.2-1.2); Calc. Creatinine Clearance 17 mL/min (70-130); Calcium 6.9 mg/dL (7.8-10.44); Carbon Dioxide 14 mmol/L (22-29); Chloride 114 mmol/L (98-107); Estimated GFR-MDRD 10; Globulin 2.5 g/dL (2.4-3.5); Potassium 3.4 mmol/L (3.5-5.1); Protein, Total 4.9 g/dL (6.0-8.3); Sodium 139 mmol/L (136-145)
[2019-04-22 13:55] LABS: AST (SGOT) Greater than 3500 U/L (5-34); Glucose 711 mg/dL (70-105)
--- NOTE | 2019-04-22 13:55 | PRG ---
DATE OF SERVICE: 04/22/2019 SUBJECTIVE: The patient is seen and examined at the bedside. One of the family members is present in the room during my visit. She is able to communicate with me in short sentences. She knows that she is in the hospital. She does not have much complaints of pain. OBJECTIVE: VITAL SIGNS: Blood pressure is 173/86, pulse is 113, respiratory rate is 38, O2 saturation is 98, and temperature is 99.2. HEENT: Her sclerae are nonicteric. Oral mucosa dry. LUNGS: Breath sounds diminished at both bases. HEART: S1 and S2. Tachycardic. No S3. No S4. ABDOMEN: Soft, nontender, nondistended. EXTREMITIES: 1+ peripheral edema similar bilaterally on lower extremities. NEUROLOGICAL: She is able to answer my simple questions. She follows my commands. She moves all 4 extremities. LABORATORY DATA: Showed last white count is 11.0, hemoglobin 13.3, hematocrit 39.8, platelet count is 45,000, and bands 25. Sodium 151, potassium 4.0, chloride 126, CO2 of 15, BUN 85, creatinine 5.26, glucose 319, glycemia is ranging from 244 to 359, calcium 7.8. CK-MB 7.4, troponin I 1.798. Lactic acid 2.5. Microbiology, two blood cultures negative. C. difficile antigen and toxins negative. Chest x-ray did not show any significant abnormalities, status post PICC line placement. ASSESSMENT: 1. Nonketotic hyperosmolar coma. 2. Severe dehydration. 3. Sepsis. 4. Renal failure. 5. Obstruction of the right ureter based on the CT of the abdomen and pelvis. 6. Thrombocytopenia, most likely secondary to sepsis. 7. Possible urinary tract infection. 8. Hypernatremia and hyperchloremia. DISCUSSION: The antibiotic was changed to meropenem after discussion to audio visual tech. We will get UA since it was not done before. Her white count is improved, but she has still elevated bands. She was treated with insulin drip for her hyperosmolar state. We will change this to Accu-Cheks q.6 hours and sliding scale. Also, I personally talked to Dr. Vaughan, urology [facility] consultant, today, and he will come and see the patient and most likely do at bedside nephrostomy tube placement, relieve the hydronephrosis, which is present on the CT of the abdomen. Also, there is a suspicion for some malignancy since there is finding of tumor, which looks like hypodense lesion in the right kidney of unclear etiology at this point. Most likely, right ureter blockage is the source of sepsis. The patient's condition is guarded, and we will continue recommendations of Dr. Cerda for free water replacement. As hypernatremia started turning down at this point, we will also encourage her to drink water orally. A brain CT was also done, which did not show any abnormalities. Job ID: [id number]
[2019-04-22 13:59] LABS: CKMB 5.2 ng/mL (0-6.6)
[2019-04-22] MEDS ORDERED: Sodium Bicarbonate 50 MEQ in Sodium Chloride 0.45% 1,000 ML IV SCH (14:30)
[2019-04-22] MEDS ORDERED: Potassium Chloride 40 MEQ in Sodium Chloride 0.9% 250 ML 250 ML IVPB SCH (14:30)
[2019-04-22] MEDS ORDERED: Albumin 25% 25 GM/100 ML BOT IVPB SCH (15:39)
[2019-04-22] MEDS ORDERED: Sodium Bicarbonate 140 MEQ in Dextrose 5% in Water 1,000 ML IV SCH (15:45)
[2019-04-22] MEDS ORDERED: Albumin 25% 100 ML ONE (15:49)
[2019-04-22] MEDS ORDERED: Lactated Ringer's 1,000 ML IV SCH (16:45)
--- NOTE | 2019-04-22 16:59 | CON ---
DATE OF CONSULTATION: 04/22/2019 REASON FOR CONSULTATION: Elevated troponins. HISTORY OF PRESENT ILLNESS: Ms. Du is a very pleasant 59-year-old white female, who comes to the hospital for altered mentation. She was found unresponsive by her family members and brought in. She was found to have sugars above detectable range of 1300. She was admitted to the ICU for this. She remains unresponsive, not verbalizing. During her admission, troponins were drawn, so Cardiology has been consulted for this. Cannot assess for chest pain, tightness, or pressure or any shortness of breath as the patient is nonverbal at this time and is still confused. PAST MEDICAL HISTORY: 1. Hypertension. 2. Hyperlipidemia. PAST SURGICAL HISTORY: None per chart review. MEDICATIONS: Outpatient medications; 1. Metoprolol tartrate 50 mg b.i.d. 2. Albuterol inhaler 90 mcg p.r.n. 3. Lisinopril-hydrochlorothiazide 20/25 mg a day. 4. Sertraline 50 mg a day. 5. Pravachol 40 mg a day. ALLERGIES: NO KNOWN DRUG ALLERGIES. FAMILY HISTORY: Noncontributory. SOCIAL HISTORY: No alcohol, tobacco, or drugs. REVIEW OF SYSTEMS: Unobtainable as she is confused. PHYSICAL EXAMINATION: VITAL SIGNS: Temperature 101.2, saturating 93% on 3 L nasal cannula, blood pressure 151/87, pulse of 121, respiratory rate 40. GENERAL: Confused, obtunded. Somewhat tachypneic. HEENT: Normocephalic and atraumatic. NECK: Supple. LUNGS: Have coarse breath sounds. ABDOMEN: Soft. CARDIOVASCULAR: S1 and S2. Tachycardic in the 120s. No murmurs. EXTREMITIES: 1+ edema. SKIN: Warm and dry. LABORATORY DATA: Laboratory work was reviewed. White count of 16, hemoglobin of 15, hematocrit 44, and platelet count of 75. ABG was reviewed. Chemistries were reviewed. Sugar is much better now in the 200 range. Troponin started at 0.15 up to 1.7, now it is down back to 1.2 with a normal CK-MB. CK is 1500. ALT is 2469, AST is greater than 3500, alkaline phosphatase is 106, albumin of 2.4, potassium was low earlier today at 3.4, BUN of 78; creatinine of 5.22, this has only been increasing from 3.6. Beta hydroxybutyrate was high, it is back to normal just a few hours after the first draw yesterday. Urine culture with E coli. Blood cultures were negative. C diff is negative. ASSESSMENT/PLAN: 1. Non-STEMI. This is a type 2 World Health Organization type of myocardial infarction, demand ischemia. No indication for full anticoagulation at this time. No indication for further intervention. Most likely this is related to her current metabolic derangement. We would treat that first .. 2. Echocardiogram, pending. 3. Further recommendations per results of echocardiogram. Job ID: [id number]
[2019-04-22] MEDS ORDERED: Sodium Chloride 0.9% 500 ML IV SCH (17:45)
[2019-04-22 19:04] LABS: ALT (SGPT) 2226 U/L (8-55); Albumin 2.9 g/dL (3.5-5.0); Alkaline Phosphatase 108 U/L (40-110); Anion Gap 16 mmol/L (10-20); BUN (Urea Nitrogen) 86 mg/dL (9.8-20.1); Calc. Creatinine Clearance 14 mL/min (70-130); Calcium 7.6 mg/dL (7.8-10.44); Carbon Dioxide 15 mmol/L (22-29); Chloride 125 mmol/L (98-107); Estimated GFR-MDRD 9; Globulin 2.4 g/dL (2.4-3.5); Glucose 191 mg/dL (70-105); Potassium 3.9 mmol/L (3.5-5.1); Protein, Total 5.3 g/dL (6.0-8.3); Sodium 152 mmol/L (136-145)
[2019-04-22 19:10] LABS: AST (SGOT) Greater than 3500 U/L (5-34)
[2019-04-22 19:16] LABS: Critical Call Chem Troponin I RESULT DECREASING
[2019-04-22 19:34] LABS: CKMB 3.5 ng/mL (0-6.6)
[2019-04-22] MEDS: Sodium Bicarbonate 75 MEQ in Sterile Water Injection 1,000 ML IV SCH (20:19)
--- NOTE | 2019-04-22 21:13 | ULT ---
RENAL ULTRASOUND: 04/22/19 HISTORY: Acute renal failure. COMPARISON: CT examination 04/22/19. Real time imaging of the right and left kidneys were performed. The right kidney measures 11.7, left kidney 11.2 cm in size. There is some minimal dilatation to the right collecting system. No cyst or m ass is identified. Fatty change of the liver is incidentally noted. The bladder has a Arceo catheter in place. IMPRESSION: Minimal right sided hydronephrosis. POS: JOLANTA
--- NOTE | 2019-04-22 21:57 | CON ---
DATE OF CONSULTATION: 04/22/2019 REASON FOR CONSULTATION: Hydronephrosis and hydroureter with severe sepsis. HISTORY OF PRESENT ILLNESS: Mrs. Du is a 59-year-old black female who was admitted to the hospital on April 21 for altered mental status, lethargy, and hyperglycemia. She had a blood sugar over 1300 and was feeling quite terrible with weakness for 4-5 days, which progressively got worse. When she was found unresponsive, her family brought her in. She has been on an insulin drip and has had progressive renal failure while in the hospital with a creatinine rising progressively from 3.6 on admission up to 5.22, where she is currently. She has made very little urine. She did undergo a CT scan after Nephrology was consulted for her renal failure, which demonstrated a large fibroid uterus with hydroureter bilaterally, but no evidence of significant hydronephrosis. I was consulted for further assistance and possibly assisting with ureteral stenting and drainage and my opinion on her renal failure. At the patient's bedside, the patient is minimally responsive. She is fairly obtunded. Most of the history is obtained from the family. The daughter who is her primary [id number] and knows her medical history the best is not available. I have talked to the family who are here, they are not familiar with her medical history, but have done the best they can answering questions. Remainder of the history is obtained from the medical records. ALLERGIES: NONE. HOME MEDICATIONS: 1. Metoprolol. 2. Albuterol. 3. Lisinopril. 4. Sertraline. 5. Pravachol. PAST MEDICAL HISTORY: 1. Hypertension. 2. Hyperlipidemia. 3. Undiagnosed diabetes. 4. Asthma. PAST SURGICAL HISTORY: None. FAMILY HISTORY: Significant for diabetes. SOCIAL HISTORY: The patient lives with her family. Denies alcohol, tobacco, or illicit drug use per the family. REVIEW OF SYSTEMS: A 12-point review of system was attempted, but the patient is extremely obtunded and is not really answering questions. She states that she feels fine, but otherwise did not really respond to many other questioning. PHYSICAL EXAMINATION: VITAL SIGNS: Temperature 101.2, pulse 123, blood pressure 151/87, respiratory rate 40, saturation 92% on nasal cannula, 3 L. GENERAL: The patient is tachypneic and is responsive, does answer questions, but is obtunded and does stimulate to arousal, but drops back off to sleep, but will respond, withdraw, and answer some questions. HEENT: Normocephalic, atraumatic. Pupils are symmetric and round. Trachea is midline. Dry mucous membranes. CARDIOVASCULAR: Sinus tachycardia. Normal S1 and S2, symmetric pulses. CHEST: Increased work of breathing. Symmetric expansion of lungs, tachypneic. Scattered wheezes. ABDOMEN: Soft, nontender, and nondistended. Positive bowel sounds. : Arceo catheter in place with a small amount of radha-colored urine, some turbidity. EXTREMITIES: No clubbing, cyanosis, or edema. SKIN: Warm and dry. No rashes or lesions. Poor turgor. MUSCULOSKELETAL: No obvious joint deformities or joint erythema noted. The patient is not following commands. NEUROLOGIC: There are no obvious neurologic deficits and no cranial nerve deficits noted, but the patient is not following commands, but she does withdraw and answer questions appropriately. LYMPHATICS: There is no cervical, supraclavicular or inguinal lymphadenopathy. PSYCHIATRIC: The patient is somnolent. She is not oriented as she is not answering questions appropriately. She does not really follow commands. Mood and affect cannot really be assessed. LABORATORY EVALUATION: The full set of labs are in the [facility] system, which I have reviewed. Of note, creatinine is currently 5.22 with AST and ALT significantly elevated at 3500 and 2469 respectively. Troponins are elevated at 1.2. Blood sugar is currently 238, on insulin drip. White count is decreased from 16.8 down to 11, hemoglobin 13.3. CT abdomen and pelvis done without contrast demonstrates moderate to severe dilation of majority of the right ureter down to the level of the ureterovesical junction. There is no hydronephrosis noted, just only a very minimal amount of dilation of the inferior pole of the right calyx. The left kidney also has a prominent ureter, but no hydronephrosis. There are no stones visualized. There is a large fibroid uterus which appears to be compressing the ureter somewhat. This may be the source of the patient's hydronephrosis. The ureters are also tortuous. There is nonspecific heterogeneity of the spleen. Diffuse fatty infiltration of the liver. Tiny amount of free fluid within the abdomen and pelvis. Difficult to characterize hypodense lesions in the right kidney. ASSESSMENT AND PLAN: A 59-year-old black female with hyperglycemia, likely undiagnosed diabetes, metabolic acidosis, acute kidney injury with near-complete renal failure, likely sepsis, possibly secondary to urinary organism growing Escherichia coli, probably secondary to poorly controlled diabetes with no significant evidence that her renal failure is due to obstruction, she likely has either prerenal azotemia or intrinsic renal dysfunction. The patient would need hydronephrosis in order to have renal failure from obstruction and since there is no hydronephrosis, she cannot have renal failure secondary to obstruction. There is concern, however, that she has some chronic obstructive process given the tortuosity and dilation of the ureters. The fact that her kidneys are currently decompressed, indicates that there is drainage occurring and the urine has left the kidney and drained out, however, is not fully draining due to a partial low-grade obstruction. At the current time, I am not fully convinced that ureteral stents will improve this patient's condition. Generally, there needs to be a significant amount of backed up infected urine to drain out which should improve the patient's condition. In this case, I believe that putting the patient under general anesthetic for ureteral stents or doing stent without anesthesia, but just manipulations within the urinary tract could potentially make this patient worse. Instead, I recommend supportive measures including sodium bicarbonate, respiratory assistance if necessary, continued broad-spectrum antibiotics. The patient is currently on meropenem, which she should be continued on and serial renal ultrasound. If the patient starts to develop hydronephrosis, I do think ureteral stents would be reasonable in that situation. The patient is critically ill and will need to be monitored very closely as there is still potential risk of in this individual given her sepsis and multiorgan dysfunction. I will continue to follow along and make recommendations. SUMMARY OF RECOMMENDATIONS: 1. Supportive measures by primary team and critical care team. 2. Serial ultrasounds. 3. No ureteral stent at this time, but will follow closely on ultrasound and if there is hydronephrosis developing with return of renal function, then we will consider stents at that time. 4. Dialysis may be needed in the future depending on patient's metabolic disturbances and renal function. This will be left to the discretion of Nephrology. 5. Continue Arceo catheter. 6. The patient is being moved to critical care unit and will also be supervised by the critical care team. I have spoken personally and coordinated care with both Dr. Abrams, Dr. Collins Bowling, and Dr. Randal Moreno in coordination of care with this patient. I spent over 45 minutes in the coordination of care with this patient and with direct counseling with the patient's family. Job ID: [id number]
[2019-04-22 23:21] LABS: ALT (SGPT) 2227 U/L (8-55); Albumin 2.9 g/dL (3.5-5.0); Alkaline Phosphatase 109 U/L (40-110); Anion Gap 15 mmol/L (10-20); BUN (Urea Nitrogen) 87 mg/dL (9.8-20.1); Calc. Creatinine Clearance 14 mL/min (70-130); Calcium 7.6 mg/dL (7.8-10.44); Carbon Dioxide 17 mmol/L (22-29); Chloride 124 mmol/L (98-107); Estimated GFR-MDRD 8; Globulin 2.4 g/dL (2.4-3.5); Glucose 152 mg/dL (70-105); Potassium 3.7 mmol/L (3.5-5.1); Protein, Total 5.3 g/dL (6.0-8.3); Sodium 152 mmol/L (136-145)
[2019-04-22 23:30] LABS: AST (SGOT) Greater than 3500 U/L (5-34)
[2019-04-23 02:49] LABS: Hemoglobin 11.4 g/dL (12.0-16.0); Mean Corpuscular HGB CONC 33.8 g/dL (32.0-36.0); Mean Corpuscular Hemoglobin 28.7 pg (27.0-31.0); Mean Corpuscular Volume 84.8 fL (78.0-98.0); Mean Platelet Volume 11.3 fL (7.4-10.4); Platelet Count 32 thou/uL (130-400); RBC Distribution Width 13.2 % (11.5-14.5); Red Blood Cell (RBC) Count 3.97 mill/uL (4.20-5.40); White Blood Cell (WBC) Count 8.1 thou/uL (4.8-10.8)
[2019-04-23 02:51] LABS: ALT (SGPT) 2174 U/L (8-55); Albumin 2.8 g/dL (3.5-5.0); Alkaline Phosphatase 115 U/L (40-110); Anion Gap 16 mmol/L (10-20); BUN (Urea Nitrogen) 89 mg/dL (9.8-20.1); Bilirubin, Total 1.1 mg/dL (0.2-1.2); Calc. Creatinine Clearance 13 mL/min (70-130); Calcium 7.5 mg/dL (7.8-10.44); Carbon Dioxide 17 mmol/L (22-29); Chloride 122 mmol/L (98-107); Estimated GFR-MDRD 8; Globulin 2.4 g/dL (2.4-3.5); Glucose 203 mg/dL (70-105); Potassium 3.5 mmol/L (3.5-5.1); Protein, Total 5.2 g/dL (6.0-8.3); Sodium 151 mmol/L (136-145)
[2019-04-23 03:05] LABS: Band 16 % (5-11); Lymphocytes 15 % (21-51); MDiff Complete? YES; Monocytes 2 % (0-10); Myelocyte 1 % (0-0); Neutrophil 66 % (42-75)
[2019-04-23 03:07] LABS: AST (SGOT) Greater than 3500 U/L (5-34)
[2019-04-23 03:10] LABS: Phosphorus 2.2 mg/dL (2.3-4.7)
[2019-04-23 03:12] LABS: Magnesium 2.1 mg/dL (1.6-2.6)
[2019-04-23] MEDS: HUMULIN R 100 UNITS in Sodium Chloride 0.9% 100 ML IVPB SCH ×3 (03:32→22:33)
[2019-04-23] MEDS: D5 1/4 NS 1,000 ML IV SCH ×3 (05:00→19:35)
[2019-04-23 06:44] LABS: ALT (SGPT) 2017 U/L (8-55); AST (SGOT) 3120 U/L (5-34); Albumin 2.7 g/dL (3.5-5.0); Alkaline Phosphatase 114 U/L (40-110); Anion Gap 15 mmol/L (10-20); BUN (Urea Nitrogen) 89 mg/dL (9.8-20.1); Bilirubin, Total 1.1 mg/dL (0.2-1.2); Calc. Creatinine Clearance 13 mL/min (70-130); Calcium 7.2 mg/dL (7.8-10.44); Carbon Dioxide 17 mmol/L (22-29); Chloride 119 mmol/L (98-107); Estimated GFR-MDRD 8; Globulin 2.4 g/dL (2.4-3.5); Glucose 190 mg/dL (70-105); Potassium 3.3 mmol/L (3.5-5.1); Protein, Total 5.1 g/dL (6.0-8.3); Sodium 148 mmol/L (136-145)
[2019-04-23] MEDS: Sodium Bicarbonate 75 MEQ in Sterile Water Injection 1,000 ML IV SCH ×4 (07:32→19:35)
--- NOTE | 2019-04-23 07:48 | RAD ---
CHEST TWO VIEWS: INDICATIONS: Shortness of breath. COMPARISON: Prior exam dated 04/22/2019. FINDINGS: The lungs are clear. Heart size is normal. Pulmonary vasculature is within normal limits. Left-sided PICC line is in place. No acute osseous abnormality is evident. IMPRESSION: No acute cardiopulmonary abnormalities. ___ POS: BH
[2019-04-23] MEDS: Amlodipine 10 MG TAB PO SCH (09:28)
[2019-04-23] MEDS: Famotidine/PF 20 mg/2ml Vial SLOW IVP SCH (09:29)
[2019-04-23] MEDS: Labetalol HCl 100 MG/20 ML VIAL SLOW IVP PRN (09:29)
[2019-04-23] MEDS ORDERED: Potassium Chloride 40 MEQ in Premix Bag 1 BAG IVPB SCH (10:15)
--- NOTE | 2019-04-23 10:45 | PRG ---
DATE OF SERVICE: 04/23/2019 SUBJECTIVE: The patient is awake, alert, looks much better today. OBJECTIVE: VITAL SIGNS: Temperature 98.9, pulse 95, blood pressure 170/67, O2 saturation 100%. Intake 4843, output 790. HEENT: Unremarkable. NECK: No JVD. LUNGS: Fairly clear anteriorly. CARDIAC: S1, S2. Regular. ABDOMEN: Soft. EXTREMITIES: No edema. LABORATORY DATA: Sodium 148, potassium 3.3, chloride 119, CO2 of 17, BUN 89, creatinine 6.6, glucose 190. CPK 2097. AST 3120, ALT 2017. White blood cell count 8.1, hematocrit 33.7, and platelet count 32. ASSESSMENT: 1. Rhabdomyolysis. 2. Hyperosmotic hyperketotic hyperglycemia with severe volume depletion. 3. Developing thrombocytopenia. 4. Hypertension. PLAN: 1. I would withhold all heparin products. 2. Continue hydration, but watch closely the amount of fluid she is being given. 3. Hopefully, able to transfer to the floor within the next 48 hours. Job ID: [id number]
[2019-04-23 10:47] LABS: Platelet Count 31 thou/uL (130-400)
[2019-04-23 10:51] LABS: Fibrinogen 366 mg/dL (253-463)
[2019-04-23 10:52] LABS: INR-International Normal Ratio 1.7; PTT 37.1 SEC (22.9-36.1); Prothrombin Time 19.5 SEC (12.0-14.7)
[2019-04-23 11:06] LABS: Band 22 % (5-11); Eosinophils 3 % (0-10); Lymphocytes 14 % (21-51); MDiff Complete? YES; Mean Corpuscular HGB CONC 34.3 g/dL (32.0-36.0); Mean Corpuscular Hemoglobin 29.5 pg (27.0-31.0); Mean Corpuscular Volume 86.1 fL (78.0-98.0); Mean Platelet Volume 11.4 fL (7.4-10.4); Neutrophil 61 % (42-75); Nucleated RBC 1 % (0); Platelet Count 31 thou/uL (130-400); Platelet Morphology Comment Appears Decreased; RBC Distribution Width 13.1 % (11.5-14.5); Red Blood Cell (RBC) Count 3.73 mill/uL (4.20-5.40); White Blood Cell (WBC) Count 7.4 thou/uL (4.8-10.8)
[2019-04-23 11:08] LABS: D-Dimer Test Greater than 20.00 *mcg/mL (0.27-0.43)
[2019-04-23 11:29] LABS: ALT (SGPT) 1898 U/L (8-55); AST (SGOT) 2520 U/L (5-34); Albumin 2.7 g/dL (3.5-5.0); Alkaline Phosphatase 124 U/L (40-110); Anion Gap 14 mmol/L (10-20); BUN (Urea Nitrogen) 88 mg/dL (9.8-20.1); Bilirubin, Total 1.2 mg/dL (0.2-1.2); CK (CPK) 2725 U/L (29-168); Calc. Creatinine Clearance 13 mL/min (70-130); Calcium 7.1 mg/dL (7.8-10.44); Carbon Dioxide 18 mmol/L (22-29); Chloride 117 mmol/L (98-107); Complement-C4 12.1 mg/dL (15-57); Estimated GFR-MDRD 8; Globulin 2.3 g/dL (2.4-3.5); Glucose 181 mg/dL (70-105); Potassium 3.1 mmol/L (3.5-5.1); Sodium 146 mmol/L (136-145)
[2019-04-23 11:36] LABS: FSP-Qualitative ABNORMAL (Normal)
[2019-04-23 11:37] LABS: FSP-Semiquantitative >=160 & <320 mcg/mL (Less than 5)
[2019-04-23] MEDS: MEROPENEM 1 GM/50 ML 1 GM in Premix Bag 1 BAG IVPB SCH (12:33)
--- NOTE | 2019-04-23 12:34 | PRG ---
DATE OF SERVICE: 04/23/2019 SERVICE: Nephrology. SUBJECTIVE: A 59-year-old female admitted due to uncontrolled diabetes with DKA, associated with encephalopathy. Nephrology is seeing patient for acute renal failure and multiple electrolyte derangements. The patient is more alert today and conversational. Denied chest pain, nausea, vomiting, headache, or leg swelling. OBJECTIVE: VITAL SIGNS: Temperature 98.9 that is current, however, T-max in the last 24 hours is 101.2. Most current blood pressure is 225/77, respiratory rate is 29, and SpO2 is 100%. GENERAL: Female, in no obvious distress. Afebrile. Anicteric. Acyanotic. HEENT: Normocephalic, atraumatic. Oral mucosa is dry. NECK: Supple, nontender with good range of motion. No JVD appreciated. CARDIOVASCULAR: Regular rhythm and rate with normal heart sounds 1 and 2. RESPIRATORY: Fair air entry bilaterally with no obvious crackle, rhonchi, or use of accessory muscles. The patient, however, is tachypneic. GI: Full, soft, nontender, nondistended with normal bowel sounds. UROGENITAL: Arceo catheter is in place. EXTREMITIES: Grossly normal looking, atraumatic with no edema or erythema. UNDERLINER: Conscious and alert, oriented to person and place. Some memory lapse is noted. Cranial nerves 2 through 12 are grossly intact. The patient moves all extremities. DIAGNOSTIC DATA: CBC showed WBC count of 8.1, hemoglobin of 11.4, MCV of 84.8, and platelets of 32. CMP showed sodium 148, potassium 3.3, chloride 119, CO2 of 17, anion gap 15, BUN 89, creatinine 6.66, glucose 190, calcium 7.2, bilirubin 1.1, AST 3120, ALT 2017, alkaline phosphatase 114, total protein 5.1, albumin 2.7, and globulin 2.4. CPK is 2097, up from 1000 yesterday. Magnesium is 2.1. Chest x-ray today showed clear lungs with normal size heart. No obvious pulmonary congestion is noted. Renal ultrasound performed yesterday showed normal size kidneys, measuring 11.7 on the right and 11.2 on the left. Minimal dilatation of right collecting system was noted with no obvious cyst or mass identified. Fatty change of the liver is noted. ASSESSMENT: 1. Acute renal failure: Acute tubular necrosis is a concern given acute acceleration of the renal function. Creatinine seems to be plateauing. May still be hemodynamic factors since the patient is clearly dehydrated. Component from myoglobin deposition may be contributory. Thrombotic microangiopathy is a concern given associated severe thrombocytopenia, which is acute. Obstructive uropathy may also be contributory, though this is not thought to be a major player. Urine output is improving. 2. Severe volume depletion. This is thought to be due to hyperglycemia-induced diuresis. 3. Sepsis: Due to urinary tract infection. 4. Hypernatremia: Due to free water deficit. Improving with provision of free water. 5. Severe metabolic acidosis, improving. 6. Uncontrolled diabetes mellitus with hemoglobin A1c of 14. 7. Diabetic ketoacidosis: Improving. 8. Acute metabolic encephalopathy. 9. Hyperkalemia: Resolved. 10. Hypokalemia. 11. Severe thrombocytopenia. 12. Acute transaminitis: Thought to be due to hepatopathy from sepsis. The patient also has fatty liver. But liver enzymes were normal on presentation. 13. Fatty liver. 14. Questionable right kidney mass. PLAN: 1. We will continue aggressive fluid therapy with hypertonic sodium bicarbonate and saline. We will actually increase sodium bicarbonate to 200. We will start antihypertensives for blood pressure control. 2. Insulin therapy as per primary attending. 3. We will follow renal function, electrolytes, and CPK closely and adjust fluid as needed. 4. We will also start free water intake orally as the patient is awake enough to tolerate this. This will help us to provide crystalloids as aggressive as we desire without causing more further . We will also get manual blood film to look for schistocytes. We will also get D-dimer and DIC panel. Further recommendation and treatment to follow depending on hospital course and review of diagnostic tests ordered. Job ID: [id number]
--- NOTE | 2019-04-23 12:45 | PDOC.CPN ---
- Subjective Date: 04/23/19 Time: 12:43 Interval history: She is doing much better. She is awake and coherent. - Review of Systems General: denies: fever/chills, weight/appetite/sleep changes, night sweats, fatigue Respiratory: denies: cough, congestion, shortness of breath, exercise intolerance Cardiovascular: denies: chest pain, palpitation, edema, paroxysmal nocturnal dyspnea, orthopnea Gastrointestinal: denies: nausea, vomiting, diarrhea, constipation, abd pain, GI bleeding Musculoskeletal: denies: pain, tenderness, stiffness, swelling, arthritis/ arthralgias Neurological: denies: numbness, syncope, seizure, weakness - Objective Allergies/Adverse Reactions: Allergies Allergy/AdvReac Type Severity Reaction Status Date / Time No Known Allergies Allergy Unverified 04/21/19 03:27 Visit Medications: Current Medications Acetaminophen (Tylenol) 650 mg MO Q4H PRN PRN Reason: Fever > 101 Acetaminophen (Tylenol) 1,000 mg PO Q6H PRN PRN Reason: Mild Pain (1-3) Amlodipine Besylate (Norvasc) 10 mg PO DAILY [facility] Last Admin: 04/23/19 09:28 Dose: 10 mg Famotidine (Pepcid) 20 mg SLOW IVP DAILY [facility] Last Admin: 04/23/19 09:29 Dose: 20 mg Hydralazine HCl (Apresoline) 20 mg SLOW IVP Q2H PRN PRN Reason: Hypertension Insulin Human Regular 100 (units/ Sodium Chloride) 101 mls @ 9.09 mls/hr IVPB INF [facility]; Protocol Last Admin: 04/23/19 12:34 Dose: 101 mls Meropenem 1 gm/ Device 50 mls @ 100 mls/hr IVPB Q24HR [facility] Last Admin: 04/23/19 12:33 Dose: 50 mls Dextrose/Sodium Chloride (D5 1/4 Ns) 1,000 mls @ 150 mls/hr IV .Q6H40M [facility] Last Admin: 04/23/19 11:49 Dose: 1,000 mls Sodium Bicarbonate 75 meq/ (Sterile Water) 1,075 mls @ 200 mls/hr IV INF [facility] Last Admin: 04/23/19 12:42 Dose: 1,075 mls Potassium Chloride 40 meq/ (Device) 100 mls @ 25 mls/hr IVPB [facility] Stop: 04/23/19 15:00 Last Admin: 04/23/19 12:34 Dose: 100 mls Labetalol HCl (Normodyne) 10 mg SLOW IVP Q1H PRN PRN Reason: Systolic BP > 180 Last Admin: 04/23/19 09:29 Dose: 10 mg Lorazepam (Ativan) 0.5 mg SLOW IVP Q6H PRN PRN Reason: Anxiety/Agitation Ondansetron HCl (Zofran Odt) 4 mg PO Q6H PRN PRN Reason: Nausea/Vomiting Ondansetron HCl (Zofran) 4 mg IVP Q6H PRN PRN Reason: Nausea/Vomiting Sodium Chloride (Flush - Normal Saline) 10 ml IVF PRN PRN PRN Reason: Saline Flush Vital Signs & Weight: Vital Signs Temp Pulse BP 04/23/19 09:29 94 203/81 H 04/23/19 09:28 95 203/81 H 04/23/19 04:00 98.9 F Admit Weight 201 lb 11.567 oz Weight 202 lb 13.204 oz - Physical Exam General: alert & oriented x3, no apparent distress HEENT: mucus membranes moist, normocephaly Neck: supple neck, midline trachea Cardiac: regular rate and rhythm, no murmur Lungs: clear to auscultation, no wheeze, rales, rhonchi Neuro: grossly intact, coordination normal Abdomen: active bowel sounds, soft, non-tender Skin: clear Musculoskeletal: normal range of motion, no pain - Labs Result Diagrams: 04/23/19 10:33 04/23/19 10:33 Troponin/CKMB CK-MB (CK-2) 3.5 ng/mL (0-6.6) 04/22/19 18:40 Troponin I 1.015 ng/mL (< 0.028) H* 04/22/19 18:40 - Telemetry Sinus rhythms and dysrhythmias: sinus tachycardia - Assessment/Plan Assessment/Plan: 1. Type II WHO type of VT, demand ischemia. 2. DKA. 3. AMS, improved. PLAN: - Continue current medications. - Family was updated. - May transfer out from ICU from cardiac perspective. - Critical Care Time Critical care time (mins): 30
--- NOTE | 2019-04-23 12:54 | PRG ---
DATE OF SERVICE: 04/23/2019 SUBJECTIVE: The patient has made a significant improvement since yesterday. Her mental status has improved dramatically. She is breathing less often. She is more conversive. However, she continues to be in renal failure with worsening creatinine. She was found to be in rhabdomyolysis and is currently being treated by the Critical Care team. OBJECTIVE: VITAL SIGNS: Temperature 98.6, pulse 94, blood pressure 187/86, heart rate 92, saturation 100%, and respiratory rate 23. Urine output 790 mL last shift. GENERAL: No apparent distress, communicative, answering questions appropriately. Obese. Generalized edema. CARDIOVASCULAR: Regular rate and rhythm. Normal S1 and S2. CHEST: Decreased breath sounds. No increased work of breathing. ABDOMEN: Soft, nontender, nondistended. Positive bowel sounds. : Arceo catheter in place with clear yellow urine. EXTREMITIES: 1+ edema bilaterally. No clubbing or cyanosis. Upper extremity digits also demonstrate some edema. LABORATORY EVALUATION: The full set of labs are in the [facility] system, which I have reviewed. Of note, the patient's white count is down to 7.4, hemoglobin of 11, and platelet count of 31. Creatinine of 6.5. IMAGING: Renal ultrasound done last night demonstrates minimal right-sided hydronephrosis with a Arceo catheter in place. No cyst or mass is identified. ASSESSMENT AND PLAN: A 59-year-old black female with rhabdomyolysis, acute renal failure secondary to severe dehydration, acute tubular necrosis, and rhabdomyolysis with minimal hydronephrosis and some component of obstructive uropathy, although this is mild, secondary to a large fibroid uterus resulting in chronic ureteral compression. The patient's white count has decreased further with antibiotic therapy, and she likely had pyelonephritis, which appears to be resolving. This likely has added to her kidney injury. At the current time, the patient would probably have a mild and modest benefit from ureteral stent placement. While I would give consideration to ureteral stenting at this time, given the patient is more hemodynamically stable, is breathing better, and is more alert and responsive, the majority of her renal failure are due to other factors, not obstruction. While I think it would be reasonable to go ahead and place ureteral stents tomorrow, her platelet count is extremely low, which makes me concerned that the patient may begin having gross hematuria with foreign bodies in her urinary tract. This would result in ongoing bleeding, which may pose a problem in the future, as such for the time being, I would like to hold off on ureteral stents and continue to monitor. I will instead get a renal ultrasound again tonight to make sure that the hydronephrosis is not worsening. If she is developing progressive hydronephrosis, then I think there is a stronger indication to consider that the obstructive uropathy may be impeding her renal recovery, at which point then, I would recommend going forward with ureteral stents despite her thrombocytopenia, otherwise for the time being, I will hold off and continue to monitor, and we will plan for ureteral stent placements once her thrombocytopenia has improved and if she is demonstrating evidence of more hydronephrosis. Ultimately, the patient will require hysterectomy, although I do not think she has any capacity at the current time to undergo that type of the surgery. This will probably need to be done as an outpatient. I will continue to follow along and make recommendations. Job ID: [id number]
--- NOTE | 2019-04-23 13:39 | PRG ---
DATE OF SERVICE: 04/23/2019 SUBJECTIVE: The patient is seen and examined at the bedside. She is improved significantly since she was moved from [facility] to intensive care unit. There was nothing unexpected overnight. OBJECTIVE: VITAL SIGNS: Blood pressure 203/81, pulse is 94, respiratory rate is 29, and O2 saturation is 100%. HEENT: Her pupils are responding to light properly. Sclerae are nonicteric. Conjunctivae are pinkish. Oral mucosa is still dry, but improved. NECK: Supple, obese. HEART: S1 and S2 normal. No S3. No S4. LUNGS: Breath sounds diminished at both bases. ABDOMEN: Soft, obese, and nontender. Bowel sounds are present. EXTREMITIES: No clubbing, cyanosis, or edema. NEUROLOGICAL: She follows my commands. She moves her all 4 extremities. She is much more awake this morning. DIAGNOSTIC DATA: Labs showed white count of 7.4, hemoglobin of 11.0, hematocrit 32.1, platelet count is 31,000, 22 bands. PT of 19.5, INR 1.7, and APTT 37.1. Fibrinogen 366. Elevated D-dimer is greater than 20. The last BMP showed sodium of 146, potassium 3.1, chloride 117, BUN of 88, creatinine 6.49, glucose is ranging from 181 to 203. Liver function tests showed AST of 2520 and ALT 1898, alkaline phosphatase 124. CPK 2725. Complement C3 of 42, low and complement C4 of 12.1, low. Microbiology; PICC line blood cultures, presumptive Escherichia coli. Urine culture, presumptive Escherichia coli. C difficile antigen and toxins negative. Chest x-ray did not show any acute abnormalities. Ultrasound of the kidneys showed mild hydronephrosis on the right side. Echocardiogram showed ejection fraction estimated at 75% to 80%, grade 1 diastolic dysfunction, moderate concentric left ventricular hypertrophy. IMPRESSION: 1. Escherichia coli sepsis, most likely source is urinary. The patient is on meropenem. Neurologist wants to do the stenting tomorrow morning since her general condition improved to the point that she can handle that procedure. Apparently, yesterday, interventional radiologist was not able to do the nephrostomy tubes since she was in a such a bed shape. 2. Right hydronephrosis. Again, urologist to do stenting tomorrow. 3. Metabolic derangement with hypernatremia, hyperchloremia, hypokalemia, improving with IV fluids. 4. Hypokalemia, for supplementation. 5. Acute renal failure. Her creatinine is 6.49, and it sounds like this is somewhat better than the previous one, which was 6.66 this morning. 6. Liver shock with LFTs improving. 7. Rhabdomyolysis with elevated CK. 8. Nonketotic hyperosmolar coma, improved. 9. Thrombocytopenia most likely related to sepsis, but we have some evidence that complement is activated with low C3 and C4. We will look for inflammatory condition like lupus. 10. Urinary tract infection with Escherichia coli. PLAN: Plan is to continue recommendations of all consultants. Appreciate help of all of them. We will continue IV fluids regimen recommended by admitting counselor. We will have stenting done on her right collecting system tomorrow. We will continue meropenem. We will check her for inflammatory conditions, autoimmune disease. We will also consult Dr. Alexander for Infectious Diseases evaluation. She will continue on clear liquids and her blood pressure is elevated. We will use calcium-channel jacoby and hydralazine for that purpose. Job ID: [id number]
[2019-04-23 13:54] LABS: Critical Call Chem Troponin I RESULT DECREASING
[2019-04-23 14:13] LABS: CKMB 9.5 ng/mL (0-6.6)
[2019-04-23] MEDS ORDERED: Potassium Chloride 20 MEQ TAB PO SCH (14:15)
--- NOTE | 2019-04-23 17:22 | ULT ---
RENAL ULTRASOUND: 04/23/19 HISTORY: Evaluation for worsening hydronephrosis. COMPARISON: The 04/22/19 exam. Real time imaging of the right and left kidneys were performed. Right kidney measures 12.5 and left 1 1.7 cm in size. The hydronephrosis appears improved on the right. The right extrarenal pelvis still m ildly prominent. Bladder was empty at the time of this exam. IMPRESSION: Decrease in the right sided hydronephrosis with only a minimally prominent right renal pelvis now see n. POS: JOLANTA
[2019-04-23 17:52] LABS: Critical Call Chem Troponin I RESULT DECREASING
[2019-04-23 18:12] LABS: CKMB 8.1 ng/mL (0-6.6); Critical Call CKMB RESULT DECREASING
[2019-04-23 19:25] LABS: ALT (SGPT) 1636 U/L (8-55); AST (SGOT) 1646 U/L (5-34); Albumin 2.6 g/dL (3.5-5.0); Alkaline Phosphatase 168 U/L (40-110); Anion Gap 15 mmol/L (10-20); BUN (Urea Nitrogen) 85 mg/dL (9.8-20.1); Bilirubin, Total 1.5 mg/dL (0.2-1.2); CK (CPK) 2977 U/L (29-168); Calc. Creatinine Clearance 13 mL/min (70-130); Calcium 6.8 mg/dL (7.8-10.44); Carbon Dioxide 18 mmol/L (22-29); Chloride 113 mmol/L (98-107); Estimated GFR-MDRD 8; Globulin 2.4 g/dL (2.4-3.5); Glucose 149 mg/dL (70-105); Potassium 3.4 mmol/L (3.5-5.1); Sodium 143 mmol/L (136-145)
[2019-04-23] MEDS: Lactated Ringer's 1,000 ML IV SCH (22:55)
[2019-04-24] MEDS: D5 1/4 NS 1,000 ML IV SCH (00:41)
[2019-04-24 01:51] LABS: ALT (SGPT) 1454 U/L (8-55); AST (SGOT) 1150 U/L (5-34); Albumin 2.6 g/dL (3.5-5.0); Alkaline Phosphatase 205 U/L (40-110); Anion Gap 15 mmol/L (10-20); BUN (Urea Nitrogen) 84 mg/dL (9.8-20.1); CK (CPK) 2876 U/L (29-168); Calc. Creatinine Clearance 13 mL/min (70-130); Calcium 6.8 mg/dL (7.8-10.44); Carbon Dioxide 19 mmol/L (22-29); Chloride 109 mmol/L (98-107); Estimated GFR-MDRD 8; Globulin 2.4 g/dL (2.4-3.5); Glucose 168 mg/dL (70-105); Potassium 3.4 mmol/L (3.5-5.1); Sodium 140 mmol/L (136-145)
[2019-04-24] MEDS: Lactated Ringer's 1,000 ML IV SCH ×2 (03:59→16:25)
[2019-04-24 05:30] LABS: #Basophils 0.1 thou/uL (0.0-0.2); #Eosinphils 0.1 thou/uL (0.0-0.7); #Monocytes 0.4 thou/uL (0.11-0.59); #Neutrophils 4.9 thou/uL (1.40-6.50); %Basophils 0.9 % (0.0-1.0); %Lymphocytes 15.8 % (21.0-51.0); %Monocytes 6.3 % (0.0-10.0); %Neutrophils 75.1 % (42.0-75.0); Band 7 % (5-11); Eosinophils 2 % (0-10); Hemoglobin 10.7 g/dL (12.0-16.0); Large Platelets SLIGHT; Lymphocytes 17 % (21-51); MDiff Complete? YES; Mean Corpuscular HGB CONC 34.5 g/dL (32.0-36.0); Mean Corpuscular Hemoglobin 29.4 pg (27.0-31.0); Mean Corpuscular Volume 85.1 fL (78.0-98.0); Mean Platelet Volume 12.1 fL (7.4-10.4); Monocytes 6 % (0-10); Neutrophil 68 % (42-75); Platelet Count 34 thou/uL (130-400); Platelet Morphology Comment Appears Decreased; RBC Distribution Width 12.9 % (11.5-14.5); Red Blood Cell (RBC) Count 3.66 mill/uL (4.20-5.40); White Blood Cell (WBC) Count 6.5 thou/uL (4.8-10.8)
[2019-04-24 06:03] LABS: ALT (SGPT) 1303 U/L (8-55); AST (SGOT) 946 U/L (5-34); Albumin 2.4 g/dL (3.5-5.0); Alkaline Phosphatase 198 U/L (40-110); Anion Gap 15 mmol/L (10-20); BUN (Urea Nitrogen) 82 mg/dL (9.8-20.1); Bilirubin, Total 2.2 mg/dL (0.2-1.2); CK (CPK) 2696 U/L (29-168); Calc. Creatinine Clearance 13 mL/min (70-130); Calcium 6.8 mg/dL (7.8-10.44); Carbon Dioxide 20 mmol/L (22-29); Chloride 110 mmol/L (98-107); Estimated GFR-MDRD 8; Globulin 2.4 g/dL (2.4-3.5); Glucose 131 mg/dL (70-105); Potassium 3.1 mmol/L (3.5-5.1); Protein, Total 4.8 g/dL (6.0-8.3); Sodium 142 mmol/L (136-145)
[2019-04-24] MEDS ORDERED: Potassium Chloride 40 MEQ in Premix Bag 1 BAG IVPB SCH (07:00)
[2019-04-24 07:29] LABS: Phosphorus 1.7 mg/dL (2.3-4.7)
[2019-04-24] MEDS ORDERED: Lactated Ringer's 1,000 ML IV SCH (07:50)
[2019-04-24] MEDS ORDERED: Potassium Chloride 20 MEQ TAB PO SCH (08:00)
--- NOTE | 2019-04-24 08:07 | PRG ---
DATE OF SERVICE: 04/24/2019 SUBJECTIVE: She is doing extremely well compared to where she was 2 days ago. OBJECTIVE: GENERAL: She is awake, alert, and in no distress. VITAL SIGNS: Her temperature is 98.6, pulse 70, blood pressure 172/70, O2 saturation 97% on room air. Intake yesterday 9630 mL, output 1950. HEENT: Unremarkable. NECK: No JVD. LUNGS: Actually fairly clear bilaterally. CARDIAC: S1 and S2 regular. ABDOMEN: Soft, nontender. EXTREMITIES: Generalized mild edema throughout. LABORATORY DATA: Sodium 142, potassium 3.1, chloride 110, CO2 of 20, BUN 82, creatinine 6.6, glucose 131, calcium 6.8, phosphorus 1.7. AST 946, ALT 1303, CPK 2696, albumin 2.4. White blood cell count 6.5, hematocrit 31.1, and platelet count 34. ASSESSMENT: 1. Hyperosmolar nonketotic hyperglycemia with severe volume depletion, now corrected. 2. Thrombocytopenia. 3. Rhabdomyolysis. 4. Transaminitis. 5. Hypertension. PLAN: She can probably be converted over to subcu insulin and started on liquids. I will go ahead and slow down her IV fluids. I think that she can go back to IMCU today, if there is a bed available. Job ID: [id number]
[2019-04-24] MEDS: Famotidine/PF 20 mg/2ml Vial SLOW IVP SCH (09:04)
[2019-04-24] MEDS: Amlodipine 10 MG TAB PO SCH (09:05)
[2019-04-24] MEDS ORDERED: Potassium Phosphate 15 MMOL in Sodium Chloride 0.9% 250 ML 250 ML IVPB SCH (09:45)
--- NOTE | 2019-04-24 10:11 | PRG ---
DATE OF SERVICE: 04/24/2019 SERVICE: Nephrology. SUBJECTIVE: A 59-year-old female admitted due to DKA associated with acute kidney injury and electrolyte derangements. Nephrology has seen patient for acute renal failure and electrolyte derangements. The patient also was found to have acute encephalopathy and rhabdomyolysis. Clinically improved. More conversational. Denied fever, nausea, vomiting, chest pain, or shortness of breath. The patient tolerated free water provided since yesterday. OBJECTIVE: VITAL SIGNS: Temperature 98.8, pulse 86, respiratory rate 17, SpO2 100% on room air, blood pressure is 138/69. GENERAL: Female, in no obvious distress. Afebrile. Anicteric. Acyanotic. HEENT: Normocephalic, atraumatic. Oral mucosa is moist. NECK: Supple, nontender with no JVD. CARDIOVASCULAR: Regular rhythm and rate with normal heart sounds 1 and 2. RESPIRATORY: Good air entry bilaterally with no crackle or rhonchi or use of accessory muscles. GI: Obese, soft, nontender, nondistended with normal bowel sounds. UROGENITAL: Arceo catheter is in place draining clear urine. EXTREMITIES: Mild right forearm edema. Other extremities are grossly normal and atraumatic with no edema or erythema. SPONSORSHIP MANAGER: Conscious, alert and oriented x3 with appropriate mental status. Cranial nerves 2 through 12 are intact. The patient moves all extremities. DIAGNOSTIC DATA: CBC showed WBC count of 6.5, hemoglobin of 10.7, MCV of 85.1, platelet of 34. CMP showed sodium 142, potassium 3.1, chloride 110, CO2 of 20, anion gap 15, BUN 82, creatinine 6.60, glucose 131, calcium 6.8, total bilirubin 2.2, AST 946, ALT 1303, alkaline phosphatase 198. Total protein 4.8, albumin 2.4, globulin 2.4. Phosphorus is 1.7. ASSESSMENT: 1. Acute renal failure: Due to volume depletion and rhabdomyolysis. Contribution from pyelonephritis and obstructive uropathy is considered as well as possible TA thrombotic microangiopathy. C3 and C4 are low. Schistocytes smear is pending at this time. 2. Severe volume depletion. 3. Rhabdomyolysis. 4. Sepsis. 5. Presumed urinary tract infection/pyelonephritis. 6. Escherichia coli bacteremia. 7. Severe metabolic acidosis, improving with alkali therapy. 8. Hyponatremia: Resolved with free water deficit repletion. 9. Diabetic ketoacidosis: Resolved. 10. Uncontrolled diabetes mellitus with hemoglobin A1c of 14. 11. Acute metabolic encephalopathy. 12. Hyperkalemia due to acute kidney injury, resolved. 13. Hypokalemia. 14. Severe thrombocytopenia: Concerning for thrombotic microangiopathy. 15. Acute transaminitis. 16. Fatty liver. 17. Questionable right kidney mass. PLAN: 1. We will replete serum potassium and phosphorus with potassium chloride and potassium phosphate. 2. We will start oral sodium bicarbonate. 3. IV fluid therapy as per Pulmonary and Critical Care. However, I recommend aggressive fluid therapy to prevent myoglobin deposition in the kidneys. Other treatment as per Pulmonary and Critical Care and primary attending. Job ID: [id number]
[2019-04-24] MEDS: Albumin 25% 25 GM/100 ML BOT IVPB SCH ×3 (11:30→22:34)
[2019-04-24] MEDS: hydrALAZINE 20 MG/ML VIAL SLOW IVP PRN ×2 (11:30→16:24)
--- NOTE | 2019-04-24 11:50 | PDOC.CPN ---
- Subjective Date: 04/24/19 Time: 11:49 Interval history: No new issues, Doing better every day. - Review of Systems General: denies: fever/chills, weight/appetite/sleep changes, night sweats, fatigue Respiratory: denies: cough, congestion, shortness of breath, exercise intolerance Cardiovascular: denies: chest pain, palpitation, edema, paroxysmal nocturnal dyspnea, orthopnea Gastrointestinal: denies: nausea, vomiting, diarrhea, constipation, abd pain, GI bleeding Musculoskeletal: denies: pain, tenderness, stiffness, swelling, arthritis/ arthralgias Neurological: denies: numbness, syncope, seizure, weakness - Objective Allergies/Adverse Reactions: Allergies Allergy/AdvReac Type Severity Reaction Status Date / Time No Known Allergies Allergy Unverified 04/21/19 03:27 Visit Medications: Current Medications Acetaminophen (Tylenol) 650 mg LA Q4H PRN PRN Reason: Fever > 101 Acetaminophen (Tylenol) 1,000 mg PO Q6H PRN PRN Reason: Mild Pain (1-3) Albumin Human (Albumin 25%) 25 gm IVPB Q6H [facility] Stop: 04/24/19 22:31 Last Admin: 04/24/19 11:30 Dose: 25 gm Amlodipine Besylate (Norvasc) 10 mg PO DAILY [facility] Last Admin: 04/24/19 09:05 Dose: 10 mg Famotidine (Pepcid) 20 mg SLOW IVP DAILY [facility] Last Admin: 04/24/19 09:04 Dose: 20 mg Hydralazine HCl (Apresoline) 20 mg SLOW IVP Q2H PRN PRN Reason: Hypertension Last Admin: 04/24/19 11:30 Dose: 20 mg Insulin Human Regular 100 (units/ Sodium Chloride) 101 mls @ 9.09 mls/hr IVPB INF [facility]; Protocol Last Admin: 04/23/19 22:33 Dose: 101 mls Meropenem 1 gm/ Device 50 mls @ 100 mls/hr IVPB Q24HR [facility] Last Admin: 04/23/19 12:33 Dose: 50 mls Lactated Ringer's (Lactated Ringer's) 1,000 mls @ 100 mls/hr IV .Q10H [facility] Last Admin: 04/24/19 09:06 Dose: Not Given Potassium Phosphate 15 mmol/ (Sodium Chloride) 255 mls @ 62.5 mls/hr IVPB NOW [facility] Stop: 04/24/19 13:00 Last Admin: 04/24/19 11:30 Dose: 255 mls Labetalol HCl (Normodyne) 10 mg SLOW IVP Q1H PRN PRN Reason: Systolic BP > 180 Last Admin: 04/23/19 09:29 Dose: 10 mg Lorazepam (Ativan) 0.5 mg SLOW IVP Q6H PRN PRN Reason: Anxiety/Agitation Ondansetron HCl (Zofran Odt) 4 mg PO Q6H PRN PRN Reason: Nausea/Vomiting Ondansetron HCl (Zofran) 4 mg IVP Q6H PRN PRN Reason: Nausea/Vomiting Sodium Chloride (Flush - Normal Saline) 10 ml IVF PRN PRN PRN Reason: Saline Flush Vital Signs & Weight: Vital Signs Temp Pulse BP Pulse Ox 04/24/19 11:30 98.3 F 86 173/75 H 04/24/19 09:05 86 173/75 H 04/24/19 08:00 98.8 F 98 04/24/19 04:00 98.6 F 04/24/19 00:00 98.9 F Admit Weight 201 lb 11.567 oz Weight 203 lb 4.259 oz - Physical Exam General: alert & oriented x3, no apparent distress HEENT: mucus membranes moist, normocephaly Neck: supple neck, midline trachea Cardiac: regular rate and rhythm, no murmur Lungs: clear to auscultation, no wheeze, rales, rhonchi Neuro: grossly intact Abdomen: active bowel sounds, soft, non-tender Skin: clear Musculoskeletal: normal range of motion - Labs Result Diagrams: 04/24/19 03:50 04/24/19 03:50 Troponin/CKMB CK-MB (CK-2) 8.1 ng/mL (0-6.6) H* 04/23/19 17:05 Troponin I 0.417 ng/mL (< 0.028) H* 04/23/19 17:05 - Telemetry Sinus rhythms and dysrhythmias: sinus rhythm - Assessment/Plan Assessment/Plan: 1. Type II WHO type of IA, demand ischemia. 2. DKA. 3. AMS, improved. PLAN: - Continue current medications. - CV stable.
--- NOTE | 2019-04-24 12:26 | PRG ---
DATE OF SERVICE: 04/24/2019 SUBJECTIVE: The patient is improved significantly. She is able to talk to me and she is smiling this morning. She does not have much pain. Her breathing improved. OBJECTIVE: VITAL SIGNS: Blood pressure is 173/75, pulse is 86, respirations 24, O2 saturation is 100%. HEENT: Her pupils are responding to light properly. Sclerae are nonicteric. LUNGS: Clear. HEART: S1 and S2 normal. ABDOMEN: Mildly tender in the epigastric area. No guarding. No masses. Bowel sounds are present. No organomegaly. EXTREMITIES: 1+ peripheral edema on upper and lower extremities. NEUROLOGIC: She follows my commands. She moves all 4 extremities. There are no any sensory or motor deficits. LABORATORY DATA: Labs showed white count of 6.5, hemoglobin 10.7, hematocrit 31.1, platelet count is 34,000. Sodium of 142, potassium 3.1, chloride 110, CO2 of 20, BUN 82, creatinine 6.60, glucose is ranging from 127 to 136 and then 157, calcium 6.8, phosphorus 1.7, total bilirubin 2.2, AST 946, ALT 1303, alkaline phosphatase 198. Creatine kinase 2696, troponin 0.417, and CK-MB 8.1. Serum total protein 4.8, albumin 2.4. Microbiology; two blood cultures showed E coli, 2/2. Urine culture showed E coli, which is sensitive to meropenem. IMPRESSION: 1. Escherichia coli sepsis, most likely urinary tract infection. 2. Right hydronephrosis. 3. Metabolic derangement with hypernatremia, hyperchloremia, hypokalemia, improving with supplementation and pig sticker management. 4. Acute renal failure, probably multifactorial secondary to sepsis and also rhabdomyolysis. 5. Liver shock. 6. Rhabdomyolysis. 7. Nonketotic hyperosmolar coma, improved. 8. Thrombocytopenia. Platelets up to 34 today, so hopefully, this is a turning point and she will start recovering from that. 9. Uncontrolled diabetes mellitus. 10. Acute metabolic encephalopathy, improved. 11. Questionable right kidney mass. 12. Vaginal spotting and fibroid of the uterus. Further followup with software development analyst on outpatient basis. DISCUSSION: The patient's fluids were decreased by Dr. Bowling to 100 mL since she received so much since the time of admission. We are going to switch her to subcu insulin. We will give her 20 units of Lantus now and calculate how much was her requirement for the last 24 hours on insulin and we will switch her to sliding scale and Accu-Cheks a.c. and h.s. There was a plan to have stent placed in her right ureter, but it was postponed since her platelets still low and to avoid bleeding since clinically she is doing significantly better. Physical Chemistry Professor wants to start her on oral bicarb to continue her treatment for severe acidosis. We will continue meropenem, and Infectious Diseases consultation with Dr. Alexander is still pending. Job ID: [id number]
--- NOTE | 2019-04-24 12:42 | PRG ---
DATE OF SERVICE: 04/24/2019 SUBJECTIVE: The patient states she is feeling fine. She has no complaints. She is not complaining of any pain. She states that she is feeling better than she did before. OBJECTIVE: VITAL SIGNS: Temperature 98.3, pulse 86, respirations 24, blood pressure 173/75, saturations 100% on room air. GENERAL: No apparent distress. Communicative and alert. CARDIOVASCULAR: Regular rate and rhythm. ABDOMEN: Soft, nontender, and nondistended. CHEST: No increased work of breathing. : Arceo catheter in place with clear yellow urine. EXTREMITIES: 1+ edema bilaterally. LABORATORY AND DIAGNOSTIC DATA: On laboratory evaluation, a full set of labs are in the [facility] system, which I have reviewed. Of note, the patient's white count is 6.5, hemoglobin is 10.7, platelet count of 34,000. Creatinine is stable around 6.6, creatine kinase levels have dropped slightly to 2696. LFTs also seem to be improving. Ultrasound done last night demonstrates decrease in mild hydronephrosis to nearly negligible levels of hydronephrosis on the right. No hydronephrosis on the left. ASSESSMENT AND PLAN: A 59-year-old black female with multiple ongoing issues including rhabdomyolysis, acute renal failure, thrombocytopenia, liver dysfunction, poorly-controlled diabetes, and metabolic acidosis, which all seem to be resolving. Her creatinine is still not significantly improving, but it is no longer increasing. She produced 1950 mL of urine in the last 24 hours, which is a marked increase from what she had done 24 hours prior to that. Despite the large increase in urine output, there has not been a subsequent development of further hydronephrosis indicating that there is no significant evidence that she has urinary obstruction. At the current time, I would still not recommend any kind of ureteral stenting, especially given the fact that she has thrombocytopenia. Her elevation in creatinine is still probably from rhabdomyolysis, which probably will improve with hydration and bicarbonate. I will leave the management of this to her Critical Care Team as well as the spooling machine operator. From my standpoint, I will continue to follow along, but there is no need for surgical intervention at this point. Job ID: [id number]
[2019-04-24] MEDS ORDERED: Dextrose 5% in Water 1,000 ML IV PRN (14:07)
[2019-04-24] MEDS ORDERED: Dextrose 50% Abboject 50 ML SYRINGE IVP PRN (14:07)
[2019-04-24] MEDS ORDERED: Insulin Glargine 10 UNITS in Pre-Filled Syringe SC SCH (14:15)
[2019-04-24 16:03] LABS: ALT (SGPT) 960 U/L (8-55); AST (SGOT) 475 U/L (5-34); Albumin 2.8 g/dL (3.5-5.0); Alkaline Phosphatase 211 U/L (40-110); Anion Gap 20 mmol/L (10-20); BUN (Urea Nitrogen) 86 mg/dL (9.8-20.1); CK (CPK) 2428 U/L (29-168); Calc. Creatinine Clearance 13 mL/min (70-130); Carbon Dioxide 15 mmol/L (22-29); Chloride 109 mmol/L (98-107); Estimated GFR-MDRD 8; Globulin 2.3 g/dL (2.4-3.5); Glucose 215 mg/dL (70-105); Potassium 4.6 mmol/L (3.5-5.1); Protein, Total 5.1 g/dL (6.0-8.3); Sodium 139 mmol/L (136-145)
[2019-04-24] MEDS: MEROPENEM 1 GM/50 ML 1 GM in Premix Bag 1 BAG IVPB SCH (16:17)
[2019-04-24 17:19] LABS: Band 5 % (5-11); Eosinophils 1 % (0-10); Hemoglobin 10.5 g/dL (12.0-16.0); Large Platelets SLIGHT; Lymphocytes 5 % (21-51); MDiff Complete? YES; Mean Corpuscular HGB CONC 34.6 g/dL (32.0-36.0); Mean Corpuscular Hemoglobin 29.1 pg (27.0-31.0); Mean Corpuscular Volume 84.2 fL (78.0-98.0); Mean Platelet Volume 11.4 fL (7.4-10.4); Monocytes 2 % (0-10); Neutrophil 87 % (42-75); Nucleated RBC 2 % (0); Platelet Count 52 thou/uL (130-400); Platelet Morphology Comment Appears Decreased
--- NOTE | 2019-04-24 17:24 | EKG ---
Test Reason : Blood Pressure : / mmHG Vent. Rate : 112 BPM Atrial Rate : 112 BPM P-R Int : 118 ms QRS Dur : 074 ms QT Int : 358 ms P-R-T Axes : 051 030 025 degrees QTc Int : 488 ms Sinus tachycardia Otherwise normal ECG No previous ECGs available Confirmed by ANKIT BRADLEY (2) on 04/24/2019 5:23:50 PM Referred By: ERENDIRA Confirmed By:ANKIT BRADLEY
[2019-04-24] MEDS: Labetalol HCl 100 MG/20 ML VIAL SLOW IVP PRN ×2 (20:06→22:35)
[2019-04-24] MEDS: HumaLOG 300 UNITS/3 ML VIAL SC PRN (20:22)
[2019-04-25] MEDS: hydrALAZINE 20 MG/ML VIAL SLOW IVP PRN (00:12)
[2019-04-25] MEDS: Lactated Ringer's 1,000 ML IV SCH ×3 (05:03→18:04)
[2019-04-25] MEDS: HumaLOG 300 UNITS/3 ML VIAL SC PRN ×4 (05:05→21:14)
[2019-04-25 05:11] LABS: Fibrinogen 428 mg/dL (253-463); INR-International Normal Ratio 1.4; Prothrombin Time 17.1 SEC (12.0-14.7)
[2019-04-25 05:12] LABS: PTT 37.1 SEC (22.9-36.1)
[2019-04-25 05:25] LABS: ALT (SGPT) 650 U/L (8-55); AST (SGOT) 238 U/L (5-34); Albumin 3.2 g/dL (3.5-5.0); Alkaline Phosphatase 218 U/L (40-110); Anion Gap 19 mmol/L (10-20); BUN (Urea Nitrogen) 92 mg/dL (9.8-20.1); Bilirubin, Total 2.6 mg/dL (0.2-1.2); CK (CPK) 1683 U/L (29-168); Calc. Creatinine Clearance 13 mL/min (70-130); Calcium 7.2 mg/dL (7.8-10.44); Carbon Dioxide 16 mmol/L (22-29); Chloride 111 mmol/L (98-107); Estimated GFR-MDRD 7; Globulin 2.1 g/dL (2.4-3.5); Glucose 298 mg/dL (70-105); Potassium 4.4 mmol/L (3.5-5.1); Protein, Total 5.3 g/dL (6.0-8.3); Sodium 142 mmol/L (136-145)
[2019-04-25 05:37] LABS: D-Dimer Test Greater than 20.00 *mcg/mL (0.27-0.43)
[2019-04-25 05:42] LABS: Platelet Count 69 thou/uL (130-400)
[2019-04-25 05:45] LABS: FSP-Qualitative ABNORMAL (Normal); FSP-Semiquantitative >=160 & <320 mcg/mL (Less than 5)
[2019-04-25 06:05] LABS: Band 12 % (5-11); Eosinophils 1 % (0-10); Hemoglobin 9.8 g/dL (12.0-16.0); Lymphocytes 12 % (21-51); MDiff Complete? YES; Mean Corpuscular HGB CONC 34.3 g/dL (32.0-36.0); Mean Corpuscular Hemoglobin 29.2 pg (27.0-31.0); Mean Corpuscular Volume 85.2 fL (78.0-98.0); Mean Platelet Volume 10.7 fL (7.4-10.4); Monocytes 4 % (0-10); Myelocyte 1 % (0-0); Neutrophil 70 % (42-75); Nucleated RBC 1 % (0); Platelet Count 69 thou/uL (130-400); Platelet Morphology Comment Appears Decreased; Red Blood Cell (RBC) Count 3.34 mill/uL (4.20-5.40); White Blood Cell (WBC) Count 7.1 thou/uL (4.8-10.8)
[2019-04-25] MEDS: Famotidine/PF 20 mg/2ml Vial SLOW IVP SCH (08:56)
[2019-04-25] MEDS: Amlodipine 10 MG TAB PO SCH (08:57)
[2019-04-25] MEDS ORDERED: Insulin Glargine 10 UNITS in Pre-Filled Syringe SC SCH (09:00)
--- NOTE | 2019-04-25 10:03 | CON ---
DATE OF CONSULTATION: 04/24/2019 REASON FOR CONSULTATION: Sepsis bacteremia. HISTORY OF PRESENT ILLNESS: A 59-year-old, first admission to this hospital who has a history of hypertension, hyperlipidemia, and now has been identified with type 2 diabetes mellitus, which had not yet been diagnosed in the past. She developed what she describes as increased urinary frequency over the past few days before admission and then she all of a sudden became lethargic and was brought to the emergency room at [facility]. Her initial blood sugar was 1300 given IV fluids and insulin infusion and then referred to [facility] for admission. On arrival, her BP was 116/66, pulse 113, respiratory rate 16, temperature 98, O2 saturation 98%. She was agitated initially. The exam findings were fairly unremarkable otherwise, did not have any abdominal tenderness, but she was disoriented, agitated. Initial sodium 150, potassium 4.3, carbon dioxide 17, creatinine was 3.53. Lactic acid 11. White cell count was 15,000; hemoglobin 17; platelets 320. Urinalysis was abnormal, greater than [address] of brain without acute findings. Chest x-ray with no infiltrates. EKG without any abnormalities of significance other than tachycardia. Two sets of blood cultures with E coli which has an ESBL phenotype except for susceptibility to trimethoprim/ sulfamethoxazole. Currently, she is awake, she is oriented, follows commands, much improved. No headaches, visual symptoms, sore throat, odynophagia, dysphagia, no cough or sputum production, no chest pain, no neck pain, no dyspnea or abdominal pain. She is voiding, still has an indwelling Arceo catheter in place. She is able to move all extremities equally. PAST MEDICAL HISTORY: Obesity, hypertension, hyperlipidemia, undiagnosed type 2 diabetes. ALLERGIES: NONE. FAMILY HISTORY: Type 2 diabetes. SOCIAL HISTORY: Just recently retired. Never smoker. No alcoholic beverage use or illicit drug use. CURRENT MEDICATIONS: 1. Tylenol. 2. Albumin. 3. Norvasc. 4. Pepcid. 5. Glucagon. 6. Apresoline. 7. Insulin. 8. Labetalol. 9. Meropenem. 10. Ondansetron. PHYSICAL EXAMINATION: VITAL SIGNS: T-max 101, she is now 98.3, blood pressure 170/75, pulse 86, respirations 24, O2 saturation 100. SKIN: No remarkable findings. The patient has a peripheral IV access and Arceo catheter. No lymphadenopathy. HEENT: Ocular movements conjugate. Sclerae white. Pupils are equal. Oral cavity normal. Numerous teeth in place. NECK: Supple. No jugular vein distention or carotid bruits. LUNGS: Symmetric, clear breath sounds. HEART: S1, S2. Regular rate. No S3 or S4. ABDOMEN: Soft, not distended or tender. No ascites. No bladder distention. No joint inflammatory activity. Pulses 1+ in dorsalis pedis, 1+ in popliteal. Moves all extremities equally. Cognitive function appears to be intact. LABORATORY DATA: White cell count is down from 16 to 6.5, hemoglobin 10, platelets 34,000 down from 75, neutrophils 68. Estimated GFR is down from 16 to 8. Renal ultrasound showed decrease in right-sided hydronephrosis, only minimally prominent right renal pelvis now seen. The patient was evaluated by Dr. Vaughan and initial abdomen and pelvis CT showed fatty infiltration of the liver and mild calyceal dilatation in the inferior pole of the right renal collecting system. Tortuosity of the right ureter with prominent dilatation all the way to the level of the right UVJ. There is also mild dilatation of the left ureter to the level of the uterus. No significant hydronephrosis on the left side. Urinary bladder decompressed with Arceo catheter. ASSESSMENT: 1. Type 2 diabetes, undiagnosed. 2. Uterine fibroids. 3. Obstruction of distal right and left ureters with dilation. 4. Urosepsis with extended-spectrum beta-lactamases Escherichia coli. DISCUSSION: The differential diagnosis includes obstructive uropathy secondary to uterine leiomyoma with urosepsis versus other causes of UVJ obstruction or less likely urinary retention leading to bilateral urinary backflow and early hydroureter and hydronephrosis. The development of renal insufficiency is probably in part also due to the sepsis syndrome and we will see what the course of her GFR will be in the next few days. Urologist felt that stenting would not be of help since there was no overt hydronephrosis, just mild on the left side. She probably will need a study of the ureters to find out what the reason for the obstruction is to allow corrective measures. In terms of antimicrobial therapy, she is currently on meropenem 1 g q.24 hours and we will adjust the dose to 500 mg daily. Eventual transition to an oral antimicrobial therapy will depend on improvement of her GFR since the only option would be Bactrim. Resolution of her acute renal failure will be expected since her last GFR in July was 62, so the current findings are probably due to the sepsis. An estimated GFR of 70 in July 2012, so it is not clear what the duration of this current decrease as if it is acute associated with sepsis or if she has chronic renal insufficiency of longer duration. Job ID: [id number] MTDD
--- NOTE | 2019-04-25 10:09 | PRG ---
DATE OF SERVICE: 04/25/2019 SUBJECTIVE: This morning, the patient is more responsive. OBJECTIVE: VITAL SIGNS: Her temperature is 98, pulse 93, blood pressure 107/65, and respirations 18. CHEST: No wheezing or crackles. CARDIAC: Normal S1 and S2. No gallops. ABDOMEN: No masses. LABORATORY DATA: White count , H and H are 9 and 28. Bicarb is 16, BUN and creatinine are 92 and 6.8, glucose is 298, AST is 238, ALT 650. central line. ASSESSMENT: 1. Nonketotic hyperosmolar coma. 2. Severe dehydration, improved. 3. Gram-negative sepsis. 4. Renal failure. 5. Uncontrolled diabetes. PLAN: We can switch over to Lantus. Continue PT, supportive care. Pulmonary will follow while in the MICU. Job ID: [id number]
[2019-04-25 10:46] LABS: ANA Symphony (Qualitative) Negative (Negative); ANA Symphony (Quantitative) 0.2 Ratio (< 0.7 Negative); EliA Thy New Method **** NEW METHOD ****; EliA Vaculitis New Method **** NEW METHOD ****; Mitochondrial Ab 0.6 U/mL (<4 Negative); Thyroid Peroxidase IgG Ab Less than 4.0 IU/mL (<25 Normal); dsDNA IgG Antibody Less than 0.5 IU/mL (<10 Negative)
[2019-04-25] MEDS ORDERED: Saccharomyces boulardii 250 MG CAP PO SCH (11:30)
[2019-04-25 11:35] LABS: CCP IgG Antibody 1.4 EliAU/mL (<7 Negative); EliA RAS New Method **** NEW METHOD ****
--- NOTE | 2019-04-25 11:49 | PRG ---
DATE OF SERVICE: 04/25/2019 SUBJECTIVE: The patient is seen and examined at the bedside. She is doing significantly better. She is able to eat almost half of her tray and this morning, she notices some diarrhea since yesterday. OBJECTIVE: VITAL SIGNS: Blood pressure is 184/71, pulse is 93, respiratory rate is 27, and O2 saturation is 98%. HEENT: Her sclerae are nonicteric. Oral mucosa is still slightly dry. NECK: Supple and obese. LUNGS: Breath sounds diminished at both bases. HEART: S1 and S2 normal. No S3. No S4. ABDOMEN: Soft, mildly distended, and nontender to touch. Bowel sounds are present. EXTREMITIES: 1+ peripheral edema similar bilateral on the lower and upper extremities. NEUROLOGIC: She follows my commands. She moves her all 4 extremities. There are no any motor or sensory deficits. LABORATORY DATA: Labs showed white count of 7.1, hemoglobin 9.8, hematocrit 28.4, platelet count is 69,000. INR is 1.4. PT of 17.1, APTT 37.1, fibrinogen 428. D-dimer is greater than 20. Sodium of 142, potassium 4.4, chloride 111, CO2 of 16, BUN 92, creatinine 6.88. Glycemia is ranging from 241 to 297. Total bilirubin is 2.6 which is down from 3.0, alkaline phosphatase is 218, AST 238, and ALT 650. Those levels are lower than they were yesterday. Microbiology, no new findings. IMPRESSION: 1. Escherichia coli sepsis, improving, most likely secondary to urinary tract source. 2. Right hydronephrosis, improved. 3. Metabolic derangement with hypernatremia, hyperchloremia, hypokalemia which is improved significantly. 4. Acute renal failure, most likely multifactorial and the main reason is probably sepsis and rhabdomyolysis. 5. Liver shock, improving. 6. Rhabdomyolysis. CPK is trending down. 7. Nonketotic hyperosmolar coma, improved. 8. Thrombocytopenia, improving as most likely secondary to sepsis, although there was some question whether she might have microangiopathic thrombotic state. 9. Uncontrolled diabetes mellitus. 10. Acute metabolic encephalopathy. 11. Type 2 myocardial infarction. 12. Questionable right kidney mass. 13. Vaginal spotting and fibroid of the uterus for further evaluation by air conditioning unit assembler on outpatient basis. DISCUSSION: The case was discussed with wax specialist, Dr. Cerda and with video rental clerk, Dr. Tovar. I am going to change her insulin Lantus dose to 15 units every morning and 20 units in the evening. Change her Accu-Cheks to before meals and at bedtime from every 6 hours and continue moderate sliding scale. We will make some adjustments later when we see how she responds to that regimen. I will continue IV fluids, lactated Ringer at 100 mL/h. Per wax specialist's recommendation, we will start her on probiotic Florastor 250 mg once a day and the patient was seen by Dr. Alexander for ID evaluation and he recommends to lower the dose on meropenem to 500 mg IV piggyback every 24 hours, which is done. Job ID: [id number]
[2019-04-25] MEDS: MEROPENEM 1 GM/50 ML 1 GM in Premix Bag 1 BAG IVPB SCH (11:54)
[2019-04-25] MEDS ORDERED: NIFEdipine XL 60 MG TAB PO SCH (15:00)
--- NOTE | 2019-04-25 15:32 | PDOC.CPN ---
- Subjective Date: 04/25/19 Time: 15:31 Interval history: She is doing much better. Back to normal. - Review of Systems General: denies: fever/chills, weight/appetite/sleep changes, night sweats, fatigue Respiratory: denies: cough, congestion, shortness of breath, exercise intolerance Cardiovascular: denies: chest pain, palpitation, edema, paroxysmal nocturnal dyspnea, orthopnea Gastrointestinal: denies: nausea, vomiting, diarrhea, constipation, abd pain, GI bleeding Musculoskeletal: denies: pain, tenderness, stiffness, swelling, arthritis/ arthralgias Neurological: denies: numbness, syncope, seizure, weakness - Objective Allergies/Adverse Reactions: Allergies Allergy/AdvReac Type Severity Reaction Status Date / Time No Known Allergies Allergy Unverified 04/21/19 03:27 Visit Medications: Current Medications Acetaminophen (Tylenol) 650 mg [place] Q4H PRN PRN Reason: Fever > 101 Acetaminophen (Tylenol) 1,000 mg PO Q6H PRN PRN Reason: Mild Pain (1-3) Dextrose/Water (Dextrose 50%) 25 gm IVP PRN PRN PRN Reason: HYPOGLYCEMIA PROTOCOL Famotidine (Pepcid) 20 mg SLOW IVP DAILY [facility] Last Admin: 04/25/19 08:56 Dose: 20 mg Glucagon (Glucagon) 1 mg IM PRN PRN PRN Reason: HYPOGLYCEMIA PROTOCOL Hydralazine HCl (Apresoline) 20 mg SLOW IVP Q2H PRN PRN Reason: Hypertension Last Admin: 04/25/19 00:12 Dose: 20 mg Meropenem 1 gm/ Device 50 mls @ 100 mls/hr IVPB Q24HR [facility] Last Admin: 04/25/19 11:54 Dose: 50 mls Dextrose/Water (D5w) 1,000 mls @ 0 mls/hr IV INF PRN PRN Reason: HYPOGLYCEMIA PROTOCOL Lactated Ringer's (Lactated Ringer's) 1,000 mls @ 100 mls/hr IV .Q10H [facility] Last Admin: 04/25/19 10:15 Dose: 1,000 mls Insulin Glargine 10 units/ (Miscellaneous Medication) 0.1 mls @ 0 mls/hr SC HS KALI Insulin Glargine 20 units/ (Miscellaneous Medication) 0.2 mls @ 0 mls/hr SC QAM [facility] Insulin Human Lispro (Humalog) 0 units SC .MODERATE SLIDING SC PRN; Protocol PRN Reason: MODERATE SLIDING SCALE Last Admin: 04/25/19 11:55 Dose: 8 unit Labetalol HCl (Normodyne) 10 mg SLOW IVP Q1H PRN PRN Reason: Systolic BP > 180 Last Admin: 04/24/19 22:35 Dose: 10 mg Lorazepam (Ativan) 0.5 mg SLOW IVP Q6H PRN PRN Reason: Anxiety/Agitation Nifedipine (Procardia Xl) 60 mg PO NOW KALI Stop: 04/25/19 17:00 Last Admin: 04/25/19 15:03 Dose: 60 mg Ondansetron HCl (Zofran Odt) 4 mg PO Q6H PRN PRN Reason: Nausea/Vomiting Ondansetron HCl (Zofran) 4 mg IVP Q6H PRN PRN Reason: Nausea/Vomiting Saccharomyces Boulardii (Florastor) 250 mg PO DAILY [facility] Sodium Chloride (Flush - Normal Saline) 10 ml IVF PRN PRN PRN Reason: Saline Flush Last Admin: 04/25/19 00:14 Dose: 10 ml Vital Signs & Weight: Vital Signs Temp Pulse BP Pulse Ox 04/25/19 15:03 93 185/67 H 04/25/19 11:15 99.2 F 04/25/19 08:57 93 177/65 H 04/25/19 08:00 96 04/25/19 07:34 98.7 F 04/25/19 04:00 97.9 F Admit Weight 201 lb 11.567 oz Weight 203 lb 4.259 oz - Physical Exam General: alert & oriented x3, appears well, no apparent distress HEENT: mucus membranes moist, normocephaly Neck: supple neck, midline trachea, no JVD/HJR Cardiac: regular rate and rhythm, no murmur Lungs: clear to auscultation, no wheeze, rales, rhonchi Neuro: grossly intact Abdomen: active bowel sounds, soft, non-tender, no masses Skin: clear Musculoskeletal: normal range of motion, no pain, no fluid collection - Labs Result Diagrams: 04/25/19 04:40 04/25/19 04:40 Troponin/CKMB CK-MB (CK-2) 8.1 ng/mL (0-6.6) H* 04/23/19 17:05 Troponin I 0.417 ng/mL (< 0.028) H* 04/23/19 17:05 - Telemetry Sinus rhythms and dysrhythmias: sinus rhythm - Assessment/Plan Assessment/Plan: 1. Type II WHO type of [place], demand ischemia. 2. DKA. 3. AMS, resolved. PLAN: - Continue current medications. - CV stable. - Will sign off. Please call with any questions.
--- NOTE | 2019-04-25 15:47 | PRG ---
DATE OF SERVICE: 04/25/2019 SERVICE: Nephrology. SUBJECTIVE: A 59-year-old female admitted due to uncontrolled diabetes mellitus associated with diabetic ketoacidosis and acute mental status change. Nephrology is seeing the patient for acute renal failure and electrolyte derangements. Mental status has improved significantly and the patient is conversational. Denied nausea, vomiting, chest pain, palpitation, or dysuria. There is no history of shortness of breath or leg edema. OBJECTIVE: VITAL SIGNS: Temperature 99.2, pulse 89, respiratory rate 21, SpO2 of 96% on room air, blood pressure is 185/67. GENERAL: Obese female, in no obvious distress. Afebrile. Anicteric. Acyanotic. HEENT: Normocephalic, atraumatic. Oral mucosa is mildly dry. NECK: Supple. Nontender with good range of motion. No JVD or lymphadenopathy or masses appreciated. CARDIOVASCULAR: Regular rhythm and rate with normal heart sounds 1 and 2. RESPIRATORY: Fair air entry bilaterally with few bibasilar crackles and with scattered rhonchi noted. GI: Obese, soft, nontender, nondistended with normal bowel sounds. EXTREMITIES: Mild edema of right upper extremity. Other extremities are grossly normal looking atraumatic with no edema or erythema. BEATER LEAD: Conscious, alert, oriented x3 with appropriate mental status. Cranial nerves 2 through 12 are grossly intact. The patient moves all extremities. DIAGNOSTIC DATA: CBC showed WBC count of 7.1, hemoglobin of 9.8, platelet of 69, MCV of 85.2. Of note, WBC count is down from 16.8 on admission, hemoglobin also is down from 15.1 on admission to 9.8 currently. Platelet is appreciating from a aba of 31 to 69 currently. DIC panel this morning showed PT 17.1, INR 1.4, PTT 37.1, fibrinogen 428, fibrin degradation products high and D-dimer more than 20. CMP showed sodium 142, potassium 4.2, chloride 111, CO2 of 16, BUN 92, creatinine 6.88, glucose 298, calcium 7.2, total bilirubin 2.6, AST 238, ALT 650, alkaline phosphatase 218, total protein 5.3, albumin 3.2. Magnesium is 2.0. CPK is 1683. Of note, creatinine went up from 6.62 yesterday to 6.88, which is however increased from admission levels of 4.7. CPK is down from 2428 yesterday, very still elevated. Liver enzymes are trending down. BUN is up from 86 yesterday to 92. CO2 is down from 20 yesterday morning to 16. ASSESSMENT: 1. Acute renal failure: Etiology remains unclear. However, it is felt to be multifactorial with volume hemodynamic factors related to volume depletion and use of lisinopril interplaying with pyelonephritis as well as obstructive uropathy and possible thrombotic microangiopathy. Initially observed moderate right-sided hydronephrosis as improved on repeat imaging. D-dimer panel was abnormal and C3 and C4 were equally markedly low and the patient has low platelet, which is improving currently and also has anemia. Atypical hemolytic uremic syndrome is unlikely with improving platelets. DIC seems more likely as patient has gram-negative bacteremia and urinary tract infection. 2. Discussed manual blood film with pathologist and no schistocytes were noted. 3. Severe volume depletion. 4. Rhabdomyolysis. 5. Sepsis from urinary tract infection/pyelonephritis and gram-negative bacteremia. 6. Severe metabolic acidosis. 7. Hypernatremia: Due to free water deficit. Corrected. 8. Diabetic ketoacidosis, resolved. 9. Acute metabolic encephalopathy: Resolved. 10. Hyperkalemia: Due to acute renal failure. Resolved. 11. Hypokalemia: Repleted. 12. Possible thrombotic microangiopathy given acute drop in hemoglobin associated with low platelet and elevated and positive DIC panel. The patient also has very low C3 and C4, though blood film was negative for schistocytes. 13. Acute transaminitis. 14. Fatty liver. 15. Right hydronephrosis concerning for ureteric obstruction. 16. Uncontrolled hypertension. 17. Right upper extremity edema: This is felt to be related to continuous BP monitoring on the same side. PLAN: 1. We will continue alkali therapy with sodium bicarbonate orally. 2. We will substitute amlodipine with nifedipine with a view to titrating upwards to get adequate BP control. 3. Avoid nephrotoxic agents. 4. I recommend escalation of IV fluid therapy as the patient still has CPK more than a 1,000 and not clinically fluid overloaded. If however fluid is escalated and the patient develops fluid overload, diuretics will be appropriate, but the patient needs fluid at this time to improve renal function. 5. We will continue to monitor electrolytes and replete as needed. 6. We will also monitor renal function and CPK as well as liver enzymes. 7. IV fluid therapy as per Pulmonary and Critical Care. Other treatment as per primary attending and other consulted services. Job ID: [id number]
[2019-04-25] MEDS: Labetalol HCl 100 MG/20 ML VIAL SLOW IVP PRN (19:10)
[2019-04-25] MEDS ORDERED: Insulin Glargine 10 UNITS in Pre-Filled Syringe 1 EACH SC SCH (21:00)
[2019-04-26] MEDS: Lactated Ringer's 1,000 ML IV SCH ×3 (01:30→23:23)
[2019-04-26] MEDS: HumaLOG 300 UNITS/3 ML VIAL SC PRN ×4 (06:10→20:31)
[2019-04-26 06:27] LABS: ALT (SGPT) 450 U/L (8-55); AST (SGOT) 105 U/L (5-34); Albumin 2.9 g/dL (3.5-5.0); Alkaline Phosphatase 278 U/L (40-110); Anion Gap 16 mmol/L (10-20); BUN (Urea Nitrogen) 96 mg/dL (9.8-20.1); Bilirubin, Total 1.9 mg/dL (0.2-1.2); CK (CPK) 753 U/L (29-168); Calc. Creatinine Clearance 14 mL/min (70-130); Carbon Dioxide 18 mmol/L (22-29); Chloride 110 mmol/L (98-107); Estimated GFR-MDRD 8; Globulin 2.6 g/dL (2.4-3.5); Glucose 340 mg/dL (70-105); Protein, Total 5.5 g/dL (6.0-8.3); Sodium 140 mmol/L (136-145)
--- NOTE | 2019-04-26 08:44 | RAD ---
CHEST 1 VIEW: INDICATION: History of shortness of breath with fluid overload. COMPARISON: Prior exam 04/23/2019. FINDINGS: Left-sided PICC line is stable. There is increasing right-sided pleural parenchymal opacity. Left l tiff is clear. Osseous structures are unchanged. Heart size is normal-appearing. IMPRESSION: Increasing right-sided pleural parenchymal opacity. Some of this may be related to subsegmental volu me loss. Recommend a repeat examination with improved inspiration. POS: OFF
[2019-04-26] MEDS ORDERED: Insulin Glargine 20 UNITS in Pre-Filled Syringe 1 EACH SC SCH (09:00)
[2019-04-26] MEDS: NIFEdipine XL 60 MG TAB PO SCH (09:12)
[2019-04-26] MEDS: Carvedilol 6.25 MG TAB PO SCH ×2 (09:13→20:35)
[2019-04-26] MEDS: Famotidine/PF 20 mg/2ml Vial SLOW IVP SCH (09:13)
[2019-04-26] MEDS: Saccharomyces boulardii 250 MG CAP PO SCH (09:13)
[2019-04-26] MEDS: Insulin Glargine 40 UNITS in Pre-Filled Syringe 1 EACH SC SCH (09:21)
--- NOTE | 2019-04-26 09:49 | PRG ---
DATE OF SERVICE: 04/26/2019 SUBJECTIVE: This morning, she is awake, alert, responsive, better, less encephalopathic. OBJECTIVE: VITAL SIGNS: Saturations are 96% on room air, blood pressure 140/70, . CHEST: No wheezing or crackles. CARDIAC: Normal S1 and S2. No gallops. ABDOMEN: No masses. LABORATORY DATA: ALT is 105. Creatine kinase 753. Sodium is 140. Creatinine is still 6.21, elevated. ASSESSMENT: 1. Chronic renal failure. 2. Sepsis. 3. Nonketotic hyperosmolar coma. PLAN: She is started on Lantus. Continue supportive care, PT. We will follow. Job ID: [id number]
[2019-04-26 10:29] LABS: Creatinine, Urine 47.01 mg/dL (47-110)
--- NOTE | 2019-04-26 10:30 | PRG ---
DATE OF SERVICE: 04/26/2019 SERVICE: Nephrology. SUBJECTIVE: A 59-year-old female, admitted with uncontrolled diabetes associated with DKA, urinary tract infection, sepsis, and acute encephalopathy. The patient is clinically improved and conversational. She seems back to baseline mentally. Denied nausea, vomiting, abdominal pain, or shortness of breath. OBJECTIVE: VITAL SIGNS: Temperature 98.5, pulse 92, respiratory rate 17, SpO2 of 99% on 2 L nasal cannula, blood pressure is 161/77. GENERAL: Obese female, in no distress. Afebrile. Anicteric. Acyanotic. HEENT: Normocephalic, atraumatic. Oral mucosa is moist. CARDIOVASCULAR: Regular rhythm and rate with normal heart sounds 1 and 2. RESPIRATORY: Fair air entry bilateral with few crackles in right base. No rhonchi or use of accessory muscles was appreciated. GI: Full, soft, nontender, nondistended with normal bowel sounds. UROGENITAL: Arceo catheter is in place, draining urine. EXTREMITIES: Mild right upper extremity edema noted. Other extremities are grossly normal, atraumatic, with no edema or erythema. ELECTROCHEMIST: Conscious, alert, oriented x3 with appropriate mental status. Cranial nerves 2 through 12 are grossly intact. The patient moves all extremities. DIAGNOSTIC DATA: CMP showed sodium 140, potassium 4.0, chloride 110, CO2 of 18, BUN 96, creatinine 6.21, glucose 340, calcium 8.0, bilirubin 1.9, AST 105, ALT 450, alkaline phosphatase 278, total protein 5.5, albumin 2.9, globulin 2.6. CPK is 753. Of note, BUN progressively has been trending up from 76 to 96. ASSESSMENT: 1. Acute renal failure with worsening azotemia: This is concerning for volume depletion. The patient is not on any steroid which will account for worsening BUN. Creatinine is fairly stable. 2. Hypertension: Control is better, but still suboptimal. 3. Metabolic acidosis: Persists. 4. Uncontrolled diabetes mellitus with fasting blood sugar of 340. 5. Rhabdomyolysis: CPK is trending down. 6. Abnormal liver function test: [place] to be related to rhabdomyolysis and sepsis. 7. E. coli urinary tract infection and pyelonephritis. 8. E. coli bacteremia. PLAN: 1. Worsening renal function with increasing azotemia is concerning for volume depletion. We will get chest x-ray as well as repeat urinalysis with urine electrolytes to calculate fractional excretion of sodium and urea. 2. We will also start the patient on incentive spirometry given right base crackles. 3. Escalation of IV fluid therapy is contemplated. We will re-evaluate with fractional excretion of urea and sodium. 4. We will repeat CBC and CMP in the morning. 5. Further treatment to follow depending on review of diagnostic tests that we have ordered as well as hospital course. We will follow along with you. Escalation of insulin therapy to get better glycemic control is recommended. 6. Avoid nephrotoxic agents including Lasix and lisinopril. 7. We will add Coreg to nifedipine to get better blood pressure control. Job ID: [id number]
[2019-04-26] MEDS: MEROPENEM 1 GM/50 ML 1 GM in Premix Bag 1 BAG IVPB SCH (11:46)
--- NOTE | 2019-04-26 17:05 | PDOC.HOSPP ---
- Subjective Subjective: Seen and examined. Patient answering questions appropriately. She is lethargic. Denies pain. Breathing well. Overall she states that she is much improved since admission.Seen and examined. Patient answering questions appropriately. She is lethargic. Denies pain. Breathing well. Overall she states that she is much improved since admission. - Objective Vital Signs & Weight: Vital Signs (12 hours) Temp Pulse Pulse Pulse BP BP BP 04/26/19 16:00 98.7 F 04/26/19 09:13 157/73 H 04/26/19 09:12 93 157/73 H 04/26/19 08:30 92 87 157/73 H 165/68 H 04/26/19 08:28 04/26/19 08:00 98.5 F Pulse Ox Pulse Ox Pulse Ox 04/26/19 16:00 04/26/19 09:13 04/26/19 09:12 04/26/19 08:30 98 98 04/26/19 08:28 99 04/26/19 08:00 97 Weight Admit Weight 201 lb 11.567 oz Weight 203 lb 4.259 oz Most Recent Monitor Data Heart Rate from ECG 68 NIBP 129/68 NIBP BP-Mean 88 Respiration from ECG 19 SpO2 98 I&O: 04/25/19 04/26/19 04/27/19 06:59 06:59 06:59 Intake Total 2900 4020 Output Total 2030 3600 Balance 870 420 Result Diagrams: 04/25/19 04:40 04/26/19 06:00 Additional Labs: Accuchecks 04/26/19 04/26/19 04/26/19 16:35 11:13 05:40 POC Glucose 229 H 349 H 325 H 04/25/19 20:25 POC Glucose 339 H Radiology Reviewed by me: Yes (CXR) Hospitalist ROS - Review of Systems All other systems reviewed; all pertinent +/- noted in HPI/Subj - Medication Medications: Active Medications Generic Name Dose Route Start Last Admin Trade Name Freq PRN Reason Stop Dose Admin Carvedilol 12.5 mg 04/26/19 09:00 04/26/19 09:13 Coreg PO 12.5 mg BID KALI Administration Famotidine 20 mg 04/21/19 09:00 04/26/19 09:13 Pepcid SLOW IVP 20 mg DAILY KALI Administration Hydralazine HCl 20 mg 04/23/19 10:04 04/25/19 00:12 Apresoline SLOW IVP 20 mg Q2H PRN Administration Hypertension Meropenem 1 gm/ Device 50 mls @ 100 mls/hr 04/22/19 12:00 04/26/19 11:46 IVPB 50 mls Q24HR KALI Administration Lactated Ringer's 1,000 mls @ 100 mls/hr 04/24/19 14:15 04/26/19 14:04 Lactated Ringer's IV 1,000 mls .Q10H KALI Administration Insulin Glargine 40 units/ 0.4 mls @ 0.4 mls/hr 04/26/19 09:00 04/26/19 09:21 Miscellaneous Medication SC 0.4 mls QAM KALI Administration Insulin Human Lispro 0 units 04/24/19 14:08 04/26/19 16:59 Humalog SC 4 unit .MODERATE SLIDING SC PRN Administration MODERATE SLIDING SCALE Protocol Labetalol HCl 10 mg 04/22/19 00:40 04/25/19 19:10 Normodyne SLOW IVP 10 mg Q1H PRN Administration Systolic BP > 180 Nifedipine 60 mg 04/26/19 09:00 04/26/19 09:12 Procardia Xl PO 60 mg DAILY KALI Administration Saccharomyces Boulardii 250 mg 04/26/19 09:00 04/26/19 09:13 Florastor PO 250 mg DAILY KALI Administration Sodium Chloride 10 ml 04/21/19 03:41 04/25/19 00:14 Flush - Normal Saline IVF 10 ml PRN PRN Administration Saline Flush - Exam General Appearance: ill appearing Eye: PERRL, anicteric sclera ENT: moist mucosa Neck: supple, symmetric, no lymphadenopathy Heart: no murmur, no gallops, no rubs Respiratory: no wheezes, no ronchi Gastrointestinal: soft, non-tender, non-distended, no guarding, no rigidity Extremities: 1+ LE edema Skin: no lesions, no rashes Neurological: cranial nerve grossly intact, normal sensation to touch, no focal deficits Musculoskeletal: generalized weakness Psychiatric: A&O x 3, lethargic Hosp A/P (1) HERACLIO (acute kidney injury) Code(s): N17.9 - ACUTE KIDNEY FAILURE, UNSPECIFIED Status: Acute (2) DKA (diabetic ketoacidoses) Code(s): E11.10 - TYPE 2 DIABETES MELLITUS WITH KETOACIDOSIS WITHOUT COMA Status: Resolved (3) 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 Code(s): E11.21 - TYPE 2 DIABETES MELLITUS WITH DIABETIC NEPHROPATHY; E11.65 - TYPE 2 DIABETES MELLITUS WITH HYPERGLYCEMIA Status: Chronic (4) HTN (hypertension) Code(s): I10 - ESSENTIAL (PRIMARY) HYPERTENSION Status: Chronic (5) HLD (hyperlipidemia) Code(s): E78.5 - HYPERLIPIDEMIA, UNSPECIFIED Status: Chronic (6) Obesity Code(s): E66.9 - OBESITY, UNSPECIFIED Status: Chronic - Plan Plan: IMCU, pending D/g nephrology consultation, recommendations appreciated cardiology consultation, recommendations appreciated on IV fluids for acute kidney injury and volume of please see, may require hemodialysis if renal function worsens adjust long and short acting insulin for better glucose control blood pressure control, medications adjusted Continue home medications as able
[2019-04-27 03:45] LABS: #Basophils 0.1 thou/uL (0.0-0.2); #Eosinphils 0.2 thou/uL (0.0-0.7); #Lymphocytes 1.1 thou/uL (1.20-3.40); #Monocytes 0.9 thou/uL (0.11-0.59); #Neutrophils 8.4 thou/uL (1.40-6.50); %Basophils 0.5 % (0.0-1.0); %Eosinophils 2.2 % (0.0-10.0); %Lymphocytes 10.4 % (21.0-51.0); %Monocytes 8.1 % (0.0-10.0); %Neutrophils 78.8 % (42.0-75.0); Hemoglobin 12.3 g/dL (12.0-16.0); Mean Corpuscular HGB CONC 34.5 g/dL (32.0-36.0); Mean Corpuscular Hemoglobin 29.4 pg (27.0-31.0); Mean Corpuscular Volume 85.2 fL (78.0-98.0); Mean Platelet Volume 10.3 fL (7.4-10.4); Platelet Count 128 thou/uL (130-400); RBC Distribution Width 13.1 % (11.5-14.5); Red Blood Cell (RBC) Count 4.19 mill/uL (4.20-5.40); White Blood Cell (WBC) Count 10.7 thou/uL (4.8-10.8)
[2019-04-27 04:04] LABS: Phosphorus 4.8 mg/dL (2.3-4.7)
[2019-04-27 04:09] LABS: ALT (SGPT) 312 U/L (8-55); AST (SGOT) 61 U/L (5-34); Albumin 2.8 g/dL (3.5-5.0); Alkaline Phosphatase 250 U/L (40-110); Anion Gap 13 mmol/L (10-20); BUN (Urea Nitrogen) 94 mg/dL (9.8-20.1); Bilirubin, Total 1.1 mg/dL (0.2-1.2); CK (CPK) 392 U/L (29-168); Calc. Creatinine Clearance 17 mL/min (70-130); Calcium 8.5 mg/dL (7.8-10.44); Carbon Dioxide 22 mmol/L (22-29); Chloride 112 mmol/L (98-107); Estimated GFR-MDRD 10; Globulin 2.6 g/dL (2.4-3.5); Glucose 150 mg/dL (70-105); Magnesium 2.2 mg/dL (1.6-2.6); Potassium 3.9 mmol/L (3.5-5.1); Protein, Total 5.4 g/dL (6.0-8.3); Sodium 143 mmol/L (136-145)
[2019-04-27] MEDS: HumaLOG 300 UNITS/3 ML VIAL SC PRN ×3 (06:42→16:51)
[2019-04-27] MEDS: Carvedilol 6.25 MG TAB PO SCH (08:21)
[2019-04-27] MEDS: Saccharomyces boulardii 250 MG CAP PO SCH (08:22)
[2019-04-27] MEDS: Insulin Glargine 40 UNITS in Pre-Filled Syringe 1 EACH SC SCH (08:22)
[2019-04-27] MEDS: NIFEdipine XL 60 MG TAB PO SCH (08:22)
[2019-04-27] MEDS: Famotidine 20 MG TAB PO SCH (08:22)
[2019-04-27] MEDS ORDERED: Furosemide 40 MG/4 ML VIAL SLOW IVP SCH (09:45)
--- NOTE | 2019-04-27 10:10 | PRG ---
DATE OF SERVICE: 04/27/2019 SERVICE: Nephrology. SUBJECTIVE: A 59-year-old female admitted due to uncontrolled diabetes associated with DKA, altered mental sensorium, and sepsis. Nephrology is seeing the patient for acute renal failure and electrolyte derangements. Feeling a lot better. Conversational. Denied any discomfort. Oral intake is still suboptimal. No fever, nausea, or vomiting. OBJECTIVE: VITAL SIGNS: Temperature 98.2, pulse 73, respiratory rate 24, SpO2 of 95% on room air, and blood pressure is 187/67. GENERAL: Obese female, in no obvious distress. Afebrile. Anicteric. Acyanotic. HEENT: Normocephalic, atraumatic. Oral mucosa is moist. CARDIOVASCULAR: Regular rhythm and rate with normal heart sounds 1 and 2. RESPIRATORY: Fair air entry bilaterally with few bibasilar crackles. GI: Full, soft, nontender, nondistended with normal bowel sounds. EXTREMITIES: Mild edema of the extremities noted. SAP SPECIALIST: Conscious, alert, and oriented x3 with appropriate mental status. DIAGNOSTIC DATA: CBC showed WBC count of 10.7, hemoglobin of 12.3, and platelet of 128. CMP showed sodium 143, potassium 3.9, chloride 112, CO2 of 22, BUN 94, and creatinine 5.26. Glucose is 150, calcium 8.5, phosphorus is 4.8, magnesium 2.2, total protein 5.4, albumin 2.8, total bilirubin 1.1, AST 61, ALT 312, alkaline phosphatase 250, and CK 392. ASSESSMENT: 1. Acute renal failure: Due to volume depletion, sepsis with possible contribution from rhabdomyolysis and DIC. Infection, pyelonephritis and infection induced nephritis is a concern. 2. Rhabdomyolysis. 3. Severe volume depletion: The patient is beginning to show signs of fluid overload. 4. Uncontrolled hypertension. 5. Metabolic acidosis. 6. Uncontrolled diabetes with diabetic ketoacidosis. 7. Acute metabolic encephalopathy, resolving. PLAN: 1. We will adjust antihypertensives to get better BP control. 2. We will discontinue IV fluids. This will also help BP control. We will also give a dose of Lasix and monitor renal function and electrolytes. 3. Other treatment as per primary attending and other specialties. Job ID: [id number]
--- NOTE | 2019-04-27 10:11 | PRG ---
DATE OF SERVICE: 04/27/2019 SUBJECTIVE: Jessie Du is sitting on the side of the bed today without any distress. OBJECTIVE: VITAL SIGNS: She has a blood pressure slightly going up 187/67, saturations 100% on room air, respirations 18, and pulse 80. CHEST: Decreased breath sounds without any wheezing. CARDIAC: Normal S1 and S2. No gallops. ABDOMEN: No masses. LABORATORY DATA: Platelet count is 128. I's and O's have been consistently . ASSESSMENT: 1. Metabolic encephalopathy. 2. Nonketotic acidosis. 3. Sepsis syndrome. 4. Hypertension. PLAN: I would avoid nephrotoxic drugs on her. She is eating adequately. I have ordered. Continue PT, supportive care. Monitor lytes. We will follow. Job ID: [id number]
[2019-04-27] MEDS ORDERED: Polyethylene Glycol 3350 17 GM Packet PO PRN (10:16)
[2019-04-27 11:15] LABS: Hemoglobin 10.4 g/dL (12.0-16.0); Platelet Count 178 thou/uL (130-400)
[2019-04-27 14:36] LABS: Bilirubin Negative (Negative); Blood, Urine 1+ (Negative); Clarity Clear (Clear); Glucose, Urine (Dipstick) 100 mg/dL (Negative); Leukocyte 25 Leu/uL (Negative); Nitrite Negative (Negative); Protein, Urine (Dipstick) Negative (Neg-Trace); Squamous Epithelial 0-3 HPF (0-3); Urobilinogen Normal mg/dL (Less than 2)
[2019-04-27 14:37] LABS: Bacteria/HPF 1+ HPF (None Seen)
--- NOTE | 2019-04-27 16:22 | PDOC.HOSPP ---
- Subjective Subjective: Seen and examined. Clinically improving. Patient does not have much appetite for solid food. Patient was straining to go to the bathroom and has a history of hemorrhoids. When straining to go the bathroom there was some blood on the toilet paper and in the stool. Patient's hemoglobin is actually up trended. - Objective Vital Signs & Weight: Vital Signs (12 hours) Temp Pulse Ox 04/27/19 15:22 97.6 F 04/27/19 11:23 97.5 F L 04/27/19 08:00 95 04/27/19 07:46 98.2 F Weight Admit Weight 201 lb 11.567 oz Weight 251 lb 4.8 oz Most Recent Monitor Data Heart Rate from ECG 61 NIBP 117/51 NIBP BP-Mean 73 Respiration from ECG 15 SpO2 100 I&O: 04/26/19 04/27/19 04/28/19 06:59 06:59 06:59 Intake Total 4020 2850 600 Output Total 3600 2850 400 Balance 420 0 200 Result Diagrams: 04/27/19 10:30 04/27/19 03:34 Additional Labs: Accuchecks 04/27/19 04/27/19 04/26/19 11:11 05:27 19:50 POC Glucose 295 H 160 H 196 H 04/26/19 16:35 POC Glucose 229 H Hospitalist ROS - Medication Medications: Active Medications Generic Name Dose Route Start Last Admin Trade Name Freq PRN Reason Stop Dose Admin Famotidine 20 mg 04/27/19 09:00 04/27/19 08:22 Pepcid PO 20 mg DAILY KALI Administration Hydralazine HCl 20 mg 04/23/19 10:04 04/25/19 00:12 Apresoline SLOW IVP 20 mg Q2H PRN Administration Hypertension Insulin Glargine 40 units/ 0.4 mls @ 0.4 mls/hr 04/26/19 09:00 04/27/19 08:22 Miscellaneous Medication SC 0.4 mls QAM KALI Administration Insulin Human Lispro 0 units 04/24/19 14:08 04/27/19 11:21 Humalog SC 6 unit .MODERATE SLIDING SC PRN Administration MODERATE SLIDING SCALE Protocol Labetalol HCl 10 mg 04/22/19 00:40 04/25/19 19:10 Normodyne SLOW IVP 10 mg Q1H PRN Administration Systolic BP > 180 Nifedipine 60 mg 04/26/19 09:00 04/27/19 08:22 Procardia Xl PO 60 mg DAILY KALI Administration Saccharomyces Boulardii 250 mg 04/26/19 09:00 04/27/19 08:22 Florastor PO 250 mg DAILY KALI Administration Sodium Chloride 10 ml 04/21/19 03:41 04/25/19 00:14 Flush - Normal Saline IVF 10 ml PRN PRN Administration Saline Flush - Exam General Appearance: NAD, awake alert ENT: normocephalic atraumatic Neck: supple, symmetric Heart: no murmur, no gallops, no rubs Respiratory: CTAB, no wheezes, no rales, no ronchi Gastrointestinal: soft, non-tender, non-distended, no guarding, no rigidity Extremities: no edema Skin: no lesions, no rashes Neurological: cranial nerve grossly intact, no weakness Musculoskeletal: generalized weakness Psychiatric: normal affect, A&O x 3 Hosp A/P (1) HERACLIO (acute kidney injury) Code(s): N17.9 - ACUTE KIDNEY FAILURE, UNSPECIFIED Status: Acute (2) DKA (diabetic ketoacidoses) Code(s): E11.10 - TYPE 2 DIABETES MELLITUS WITH KETOACIDOSIS WITHOUT COMA Status: Resolved (3) 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 Code(s): E11.21 - TYPE 2 DIABETES MELLITUS WITH DIABETIC NEPHROPATHY; E11.65 - TYPE 2 DIABETES MELLITUS WITH HYPERGLYCEMIA Status: Chronic (4) HTN (hypertension) Code(s): I10 - ESSENTIAL (PRIMARY) HYPERTENSION Status: Chronic (5) HLD (hyperlipidemia) Code(s): E78.5 - HYPERLIPIDEMIA, UNSPECIFIED Status: Chronic (6) Obesity Code(s): E66.9 - OBESITY, UNSPECIFIED Status: Chronic - Plan Plan: IMCU, pending D/g nephrology consultation, recommendations appreciated cardiology consultation, recommendations appreciated on IV fluids for acute kidney injury and volume of please see, may require hemodialysis if renal function worsens Starting to develop volume overload, renal function still poor DM regimen: -Increase to Lantus 25 units BID -ISS - moderate blood pressure control, medications adjusted as needed per nephrology, recs appreciated Continue home medications as able
[2019-04-27] MEDS: Insulin Glargine 25 UNITS in Pre-Filled Syringe 1 EACH SC SCH (20:58)
[2019-04-27] MEDS: Docusate 100 MG CAP PO SCH (20:58)
[2019-04-27] MEDS: hydrALAZINE 25 MG TAB PO SCH (20:59)
[2019-04-28] MEDS: Insulin Glargine 25 UNITS in Pre-Filled Syringe 1 EACH SC SCH (08:53)
[2019-04-28] MEDS: Saccharomyces boulardii 250 MG CAP PO SCH (08:53)
[2019-04-28] MEDS: Famotidine 20 MG TAB PO SCH (08:54)
[2019-04-28] MEDS: hydrALAZINE 25 MG TAB PO SCH ×2 (08:54→20:17)
[2019-04-28] MEDS: Docusate 100 MG CAP PO SCH (08:54)
--- NOTE | 2019-04-28 09:17 | PRG ---
DATE OF SERVICE: 04/28/2019 SUBJECTIVE: Jessie Du is morbidly obese patient. This morning, much more awake and responsive. OBJECTIVE: VITAL SIGNS: Saturations are 96% on room air, temperature 98, blood pressure 110/74, and respiratory rate 18. CHEST: No wheezing or crackles. CARDIAC: Normal S1 and S2. No gallops. ASSESSMENT: Urinary tract infection, morbid obesity, respiratory failure, encephalopathy, nonketotic hyperosmolar coma, and hypertension. PLAN: Continue PT and supportive care. Eventually placement. Job ID: [id number]
[2019-04-28 09:28] LABS: ALT (SGPT) 215 U/L (8-55); AST (SGOT) 55 U/L (5-34); Albumin 2.8 g/dL (3.5-5.0); Alkaline Phosphatase 301 U/L (40-110); Anion Gap 17 mmol/L (10-20); BUN (Urea Nitrogen) 84 mg/dL (9.8-20.1); Bilirubin, Total 0.9 mg/dL (0.2-1.2); CK (CPK) 243 U/L (29-168); Calc. Creatinine Clearance 24 mL/min (70-130); Calcium 8.6 mg/dL (7.8-10.44); Carbon Dioxide 20 mmol/L (22-29); Chloride 110 mmol/L (98-107); Estimated GFR-MDRD 13; Globulin 3.4 g/dL (2.4-3.5); Glucose 172 mg/dL (70-105); Phosphorus 5.9 mg/dL (2.3-4.7); Potassium 3.9 mmol/L (3.5-5.1); Protein, Total 6.2 g/dL (6.0-8.3); Sodium 143 mmol/L (136-145)
[2019-04-28] MEDS ORDERED: Furosemide 20 MG TAB PO SCH (11:00)
[2019-04-28] MEDS: Meropenem 500 MG in Sodium Chloride 0.9% 100 ML IVPB SCH (11:03)
--- NOTE | 2019-04-28 11:13 | PRG ---
DATE OF SERVICE: 04/28/2019 SERVICE: Nephrology. SUBJECTIVE: A 59-year-old female admitted with sepsis due to pyelonephritis as well as DKA, being followed up for acute renal failure and electrolyte derangements. Clinically improved. The patient reports generalized weakness and poor energy. Denied shortness of breath, fever, or abdominal pain. OBJECTIVE: VITAL SIGNS: Temperature 98.3, pulse 73, respiratory rate 19, SpO2 of 96% on room air, and blood pressure is 155/61. GENERAL: Obese female, in no obvious distress. Afebrile, but fatigued. HEENT: Normocephalic, atraumatic. CARDIOVASCULAR: Regular rhythm and rate with normal heart sounds 1 and 2. RESPIRATORY: Fair air entry bilaterally with few bibasilar crackles. GI: Obese, soft, nontender, and nondistended with normal bowel sounds. UROGENITAL: Arceo catheter is in place, draining urine. EXTREMITIES: Mild edema of the extremities noted. VALVING MACHINE OPERATOR: Conscious, alert, and oriented x3 with appropriate mental status. PSYCHIATRIC: Flat affect. DIAGNOSTIC DATA: CMP showed sodium 143, potassium 3.9, chloride 110, CO2 of 20, BUN 84, creatinine 4.36, glucose 172, calcium 8.6, and phosphorus 5.9. Total bilirubin 0.9, AST 55, ALT 215, alkaline phosphatase 301, total protein 6.2, albumin 2.8, and globulin 3.4. CPK is 243. ASSESSMENT: 1. Acute renal failure: Due to hemodynamic factors related to volume depletion in a patient taking lisinopril and diuretics as well as effect of sepsis and rhabdomyolysis. Pyelonephritis also was contributory. The patient initially also had right ureteric dilatation, which has improved. 2. Rhabdomyolysis, improved. 3. Metabolic acidosis, improved. 4. Volume overload: Improving. 5. Hypertension control remains suboptimal. 6. Uncontrolled diabetes with diabetic ketoacidosis. 7. Sepsis from pyelonephritis and Escherichia coli bacteremia. 8. Right hydronephrosis. Improved. Concerning for transient obstruction . 9. Fibromyoma with distortion of the uterus. PLAN: 1. Continue sodium bicarb. 2. We will add Lasix 40 mg daily to help with volume management. 3. We will continue current antihypertensives and adjust dose to get adequate BP control. 4. Repeat renal function in the morning. 5. Monitor electrolytes and replete as needed. 6. Diabetic management as per primary attending. Job ID: [id number]
[2019-04-28] MEDS: HumaLOG 300 UNITS/3 ML VIAL SC PRN ×3 (11:26→21:02)
[2019-04-28 15:14] VITALS: BMI 41.8
--- NOTE | 2019-04-28 16:28 | PRG ---
DATE OF SERVICE: 04/28/2019 SUBJECTIVE: The patient states that she is a little tired, but otherwise feeling okay. Denies any pain. No flank pain or hematuria. OBJECTIVE: VITAL SIGNS: Temperature 98.5, pulse 79, respirations 18, blood pressure 143/51, and saturations 96% on room air. GENERAL: No apparent distress. Communicative and alert. CARDIOVASCULAR: Regular rate and rhythm. Normal S1 and S2. ABDOMEN: Soft, nontender, and nondistended. Positive bowel sounds. : Arceo catheter in place with clear yellow urine, 2900 mL urine output in the last 24 hours. EXTREMITIES: No clubbing, cyanosis, or edema. LABORATORY DATA: On lab evaluation, the full set of labs are in the [facility] system, which I have reviewed. Of note, the patient's hemoglobin is 10.4. Last white count is 10.7. Creatinine is currently 4.36. ASSESSMENT AND PLAN: A 59-year-old black female with rhabdomyolysis and acute kidney injury with a large uterine fibroid, mild hydronephrosis with improving renal function with medical management alone. There is no strong evidence that the patient needs ureteral stents at this time. Her thrombocytopenia has also improved. At the current time, I would continue supportive therapy, would recommend continuation of the Arceo catheter until her creatinine reaches baseline. Once it is stabilized, then the Arceo catheter can be removed. Ultimately, the patient would probably do best with a hysterectomy, which can be scheduled on an outpatient basis once her medical issues have stabilized. I will continue to follow along as necessary. Job ID: [id number]
[2019-04-28] MEDS ORDERED: Docusate 100 MG CAP PO PRN (17:18)
--- NOTE | 2019-04-28 17:23 | PDOC.HOSPP ---
- Subjective Subjective: Seen and examined. Clinically depressed. Low energy. Low drive to get up and out of bed and get more mobile. Patient developed diarrhea, concern for C. diff a sample has been sent. Blood sugars and blood pressure overall improving. Discussed case with nephrology. - Objective Vital Signs & Weight: Vital Signs (12 hours) Temp Pulse BP BP Pulse Ox 04/28/19 16:19 99.2 F 143/51 H 04/28/19 11:15 98.5 F 04/28/19 08:54 72 170/58 H 04/28/19 08:00 95 04/28/19 07:25 98.3 F Weight Admit Weight 201 lb 11.567 oz Weight 243 lb 14.4 oz Most Recent Monitor Data Heart Rate from ECG 79 NIBP 143/51 NIBP BP-Mean 81 Respiration from ECG 18 SpO2 96 I&O: 04/27/19 04/28/19 04/29/19 06:59 06:59 06:59 Intake Total 2850 1160 200 Output Total 2850 2900 Balance 0 -1740 200 Result Diagrams: 04/27/19 10:30 04/28/19 08:26 Additional Labs: Accuchecks 04/28/19 04/28/19 04/28/19 16:56 10:49 06:24 POC Glucose 253 H 190 H 131 H 04/27/19 20:10 POC Glucose 172 H Hospitalist ROS - Review of Systems All other systems reviewed; all pertinent +/- noted in HPI/Subj - Medication Medications: Active Medications Generic Name Dose Route Start Last Admin Trade Name Freq PRN Reason Stop Dose Admin Famotidine 20 mg 04/27/19 09:00 04/28/19 08:54 Pepcid PO 20 mg DAILY KALI Administration Hydralazine HCl 20 mg 04/23/19 10:04 04/25/19 00:12 Apresoline SLOW IVP 20 mg Q2H PRN Administration Hypertension Hydralazine HCl 75 mg 04/27/19 21:00 04/28/19 08:54 Apresoline PO 75 mg BID KALI Administration Meropenem 500 mg/ Sodium 100 mls @ 200 mls/hr 04/28/19 10:00 04/28/19 11:03 Chloride IVPB 100 mls 1000 KALI Administration Insulin Human Lispro 0 units 04/24/19 14:08 04/28/19 16:58 Humalog SC 6 unit .MODERATE SLIDING SC PRN Administration MODERATE SLIDING SCALE Protocol Labetalol HCl 10 mg 04/22/19 00:40 04/25/19 19:10 Normodyne SLOW IVP 10 mg Q1H PRN Administration Systolic BP > 180 Metoprolol Succinate 50 mg 04/27/19 21:00 04/28/19 08:54 Toprol Xl PO 50 mg BID KALI Administration Polyethylene Glycol 17 gm 04/27/19 10:16 04/28/19 08:53 Miralax PO 17 gm DAILYPRN PRN Administration Constipation Saccharomyces Boulardii 250 mg 04/26/19 09:00 04/28/19 08:53 Florastor PO 250 mg DAILY KALI Administration Sodium Chloride 10 ml 04/21/19 03:41 04/25/19 00:14 Flush - Normal Saline IVF 10 ml PRN PRN Administration Saline Flush - Exam General Appearance: NAD Eye: PERRL, anicteric sclera ENT: normocephalic atraumatic, moist mucosa Neck: supple, symmetric, no lymphadenopathy Heart: RRR, no murmur, normal peripheral pulses Respiratory: CTAB, no wheezes, no ronchi, normal chest expansion Gastrointestinal: soft, non-tender, non-distended, no guarding, no rigidity Extremities: 2+ LE edema Skin: no lesions, no rashes Neurological: cranial nerve grossly intact, no new deficit Musculoskeletal: normal tone, generalized weakness Psychiatric: flat affect Hosp A/P (1) HERACLIO (acute kidney injury) Code(s): N17.9 - ACUTE KIDNEY FAILURE, UNSPECIFIED Status: Acute (2) DKA (diabetic ketoacidoses) Code(s): E11.10 - TYPE 2 DIABETES MELLITUS WITH KETOACIDOSIS WITHOUT COMA Status: Resolved (3) 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 Code(s): E11.21 - TYPE 2 DIABETES MELLITUS WITH DIABETIC NEPHROPATHY; E11.65 - TYPE 2 DIABETES MELLITUS WITH HYPERGLYCEMIA Status: Chronic (4) HTN (hypertension) Code(s): I10 - ESSENTIAL (PRIMARY) HYPERTENSION Status: Chronic (5) HLD (hyperlipidemia) Code(s): E78.5 - HYPERLIPIDEMIA, UNSPECIFIED Status: Chronic (6) Obesity Code(s): E66.9 - OBESITY, UNSPECIFIED Status: Chronic - Plan Plan: IMCU, pending D/g nephrology consultation, recommendations appreciated cardiology consultation, recommendations appreciated Urology consultation, recommendations appreciated Diuretics on, may require hemodialysis if renal function worsens DM regimen: -Increase to Lantus 28 units BID -ISS - moderate blood pressure control, medications adjusted as needed per nephrology, recs appreciated Continue home medications as able Stool sample for c.diff
[2019-04-28] MEDS: Insulin Glargine 28 UNITS in Pre-Filled Syringe 1 EACH SC SCH (21:03)
--- NOTE | 2019-04-29 09:21 | PRG ---
DATE OF SERVICE: 04/29/2019 SUBJECTIVE: This morning, the patient is awake, alert, responsive. Ate breakfast. OBJECTIVE: VITAL SIGNS: Saturations 100% on room air, temperature 98, pulse 74, blood pressure . GENERAL: No longer encephalopathic, though she is weak. CHEST: Decreased breath sounds. No wheezing. CARDIAC: Normal S1 and S2. No gallops. ABDOMEN: No masses. ASSESSMENT: Acute on chronic renal failure, slowly improving, nonketotic hyperosmolar coma, abnormal liver function tests, morbid obesity, deconditioning, urinary tract infection. PLAN: She is still on meropenem. She needs aggressive PT and supportive care. Nephrology has started diuretics, though I still think she is on the dry side. I will continue supportive care, PT. We will follow. Job ID: [id number]
[2019-04-29] MEDS: hydrALAZINE 25 MG TAB PO SCH ×2 (09:26→21:30)
[2019-04-29] MEDS: Famotidine 20 MG TAB PO SCH (09:26)
[2019-04-29] MEDS: Furosemide 40 MG TAB PO SCH (09:26)
[2019-04-29] MEDS: Saccharomyces boulardii 250 MG CAP PO SCH (09:27)
[2019-04-29] MEDS: Meropenem 500 MG in Sodium Chloride 0.9% 100 ML IVPB SCH (09:27)
[2019-04-29] MEDS: Insulin Glargine 28 UNITS in Pre-Filled Syringe 1 EACH SC SCH ×2 (09:41→21:30)
[2019-04-29 10:09] LABS: ALT (SGPT) 163 U/L (8-55); AST (SGOT) 59 U/L (5-34); Albumin 2.9 g/dL (3.5-5.0); Alkaline Phosphatase 328 U/L (40-110); Anion Gap 15 mmol/L (10-20); BUN (Urea Nitrogen) 70 mg/dL (9.8-20.1); Bilirubin, Total 0.8 mg/dL (0.2-1.2); CK (CPK) 197 U/L (29-168); Calc. Creatinine Clearance 29 mL/min (70-130); Calcium 8.6 mg/dL (7.8-10.44); Carbon Dioxide 22 mmol/L (22-29); Chloride 113 mmol/L (98-107); Estimated GFR-MDRD 15; Globulin 3.4 g/dL (2.4-3.5); Glucose 136 mg/dL (70-105); Phosphorus 6.3 mg/dL (2.3-4.7); Potassium 3.9 mmol/L (3.5-5.1); Protein, Total 6.3 g/dL (6.0-8.3); Sodium 146 mmol/L (136-145)
--- NOTE | 2019-04-29 12:17 | PRG ---
DATE OF SERVICE: 04/29/2019 SERVICE: Nephrology. SUBJECTIVE: A 59-year-old female being followed up for acute renal failure and rhabdomyolysis. Reports feeling better. Oral intake is improving, but still suboptimal. OBJECTIVE: VITAL SIGNS: Temperature 98.1, pulse 74, respiratory rate 18, SpO2 of 100% on room air, and blood pressure 178/74. GENERAL: Obese female, in no distress. Afebrile. Anicteric. Acyanotic. HEENT: Normocephalic, atraumatic. Oral mucosa is moist. CARDIOVASCULAR: Regular rhythm and rate with normal heart sounds 1 and 2. RESPIRATORY: Fair air entry bilaterally with no obvious crackle or rhonchi or use of accessory muscles. GI: Full, soft, nontender, and nondistended with normal bowel sounds. EXTREMITIES: Mild bilateral leg edema noted. 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 Cranial nerves 2 through 12 are grossly intact. The patient is ambulant. DIAGNOSTIC DATA: CMP showed sodium 146, potassium 3.9, chloride 113, CO2 of 22, BUN 70, creatinine 3.66, glucose 136, calcium 8.6, phosphorus 6.3, total bilirubin 0.8, AST 59, AST 163, alkaline phosphatase 328, total protein 6.3, albumin 2.9, and globulin 3.4. CPK is 197. ASSESSMENT: 1. Acute renal failure: Due to hemodynamic factors as well as rhabdomyolysis with contribution from sepsis and volume depletion, improving. 2. Metabolic acidosis: Improving. 3. Hypertension, controlled, is still suboptimal, but improving. 4. Rhabdomyolysis: CPK is down. 5. Hyperkalemia: Resolved. 6. Hypokalemia. Repleted. 7. Hyperphosphatemia: Due to renal dysfunction and uncontrolled diabetes. PLAN: 1. Continue current treatment. 2. Continue diuretic given leg edema. 3. [place] fluid intake recommended given mild hypernatremia. 4. Get PTH in the morning. 5. Change diet to renal given hyperphosphatemia. 6. Increase activity. Job ID: [id number]
[2019-04-29] MEDS: hydrALAZINE 20 MG/ML VIAL SLOW IVP PRN ×2 (13:41→23:47)
[2019-04-29] MEDS ORDERED: Labetalol HCl 100 MG/20 ML VIAL SLOW IVP PRN (14:35)
--- NOTE | 2019-04-29 14:38 | PDOC.HOSPP ---
- Subjective Subjective: Seen and examined. Worsening lower extremity edema. Blood pressure not control. Diarrhea with concerns for C. diff per smell per nursing staff. Discuss case with infectious disease who recommended stool lactoferrin, if this is abnormal will have to override the policy and rule out C. diff. Patient in better spirits today. Overall medically she is improving. - Objective Vital Signs & Weight: Vital Signs (12 hours) Temp Pulse Resp BP BP Pulse Ox 04/29/19 13:41 69 177/75 H 04/29/19 12:19 98.7 F 69 18 176/74 H 99 04/29/19 09:26 74 04/29/19 07:39 98.1 F 74 18 178/74 H 100 04/29/19 07:35 100 04/29/19 04:00 98.1 F 73 16 138/84 97 Weight Admit Weight 201 lb 11.567 oz Weight 243 lb 14.4 oz Most Recent Monitor Data Heart Rate from ECG 79 NIBP 143/51 NIBP BP-Mean 81 Respiration from ECG 18 SpO2 96 I&O: 04/28/19 04/29/19 04/30/19 06:59 06:59 06:59 Intake Total 1160 200 240 Output Total 2900 750 Balance -1740 200 -510 Result Diagrams: 04/27/19 10:30 04/29/19 09:40 Additional Labs: Accuchecks 04/29/19 04/29/19 04/28/19 11:27 05:45 20:35 POC Glucose 139 H 106 220 H 04/28/19 16:56 POC Glucose 253 H Hospitalist ROS - Medication Medications: Active Medications Generic Name Dose Route Start Last Admin Trade Name Freq PRN Reason Stop Dose Admin Famotidine 20 mg 04/27/19 09:00 04/29/19 09:26 Pepcid PO 20 mg DAILY KALI Administration Furosemide 40 mg 04/29/19 09:00 04/29/19 09:26 Lasix PO 40 mg DAILY KALI Administration Hydralazine HCl 20 mg 04/23/19 10:04 04/29/19 13:41 Apresoline SLOW IVP 20 mg Q2H PRN Administration Hypertension Hydralazine HCl 75 mg 04/27/19 21:00 04/29/19 09:26 Apresoline PO 75 mg BID KALI Administration Meropenem 500 mg/ Sodium 100 mls @ 200 mls/hr 04/28/19 10:00 04/29/19 09:27 Chloride IVPB 100 mls 1000 KALI Administration Insulin Glargine 28 units/ 0.28 mls @ 0.4 mls/hr 04/28/19 21:00 04/29/19 09: 41 Miscellaneous Medication SC 0.28 mls BID KALI Administration Insulin Human Lispro 0 units 04/24/19 14:08 04/28/19 21:02 Humalog SC 4 unit .MODERATE SLIDING SC PRN Administration MODERATE SLIDING SCALE Protocol Labetalol HCl 10 mg 04/22/19 00:40 04/25/19 19:10 Normodyne SLOW IVP 10 mg Q1H PRN Administration Systolic BP > 180 Metoprolol Succinate 50 mg 04/27/19 21:00 04/29/19 09:26 Toprol Xl PO 50 mg BID KALI Administration Polyethylene Glycol 17 gm 04/27/19 10:16 04/28/19 08:53 Miralax PO 17 gm DAILYPRN PRN Administration Constipation Saccharomyces Boulardii 250 mg 04/26/19 09:00 04/29/19 09:27 Florastor PO 250 mg DAILY KALI Administration Sertraline HCl 50 mg 04/29/19 09:00 04/29/19 09:27 Zoloft PO 50 mg DAILY KALI Administration Sodium Chloride 10 ml 04/21/19 03:41 04/25/19 00:14 Flush - Normal Saline IVF 10 ml PRN PRN Administration Saline Flush - Exam General Appearance: NAD, awake alert Eye: anicteric sclera ENT: no oropharyngeal lesions, moist mucosa Neck: symmetric, no lymphadenopathy Heart: no murmur, no gallops Respiratory: no wheezes, no ronchi, normal chest expansion Gastrointestinal: soft, non-tender, no guarding, no rigidity Extremities: no cyanosis, no clubbing, no edema, 2+ LE edema, clubbing. negative: 1+ LE edema Skin: no lesions, no rashes Neurological: cranial nerve grossly intact, no weakness Musculoskeletal: no muscle wasting, generalized weakness Psychiatric: A&O x 3, flat affect Hosp A/P (1) HERACLIO (acute kidney injury) Code(s): N17.9 - ACUTE KIDNEY FAILURE, UNSPECIFIED Status: Acute (2) DKA (diabetic ketoacidoses) Code(s): E11.10 - TYPE 2 DIABETES MELLITUS WITH KETOACIDOSIS WITHOUT COMA Status: Resolved (3) 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 Code(s): E11.21 - TYPE 2 DIABETES MELLITUS WITH DIABETIC NEPHROPATHY; E11.65 - TYPE 2 DIABETES MELLITUS WITH HYPERGLYCEMIA Status: Chronic (4) HTN (hypertension) Code(s): I10 - ESSENTIAL (PRIMARY) HYPERTENSION Status: Chronic (5) HLD (hyperlipidemia) Code(s): E78.5 - HYPERLIPIDEMIA, UNSPECIFIED Status: Chronic (6) Obesity Code(s): E66.9 - OBESITY, UNSPECIFIED Status: Chronic - Plan Plan: Med/ tel nephrology consultation, recommendations appreciated cardiology consultation, recommendations appreciated Pulm consultation, recommendations appreciated Urology consultation, recommendations appreciated Diuretics on, may require hemodialysis if renal function worsens DM regimen: -Increase to Lantus 28 units BID -ISS - moderate blood pressure control, medications adjusted as needed per nephrology, recs appreciated Continue home medications as able Stool sample for c.diff, added Stool lactoferrin, if this is abnormal will have to overrule policy to rule out c.diff.
--- NOTE | 2019-04-29 14:52 | PRG ---
DATE OF SERVICE: 04/29/2019 SUBJECTIVE: Feeling well. Good appetite. No headaches. No shortness of breath. No abdominal pain. Voiding with indwelling Arceo catheter, still. OBJECTIVE: VITAL SIGNS: She has been afebrile, blood pressure 170/75, pulse 69, respirations 18, and O2 saturation 99%. GENERAL: She is in no distress, oriented, pleasant. LUNGS: Clear. HEART: S1 and S2, regular rate. ABDOMEN: Soft, not distended. No bladder distention. No joint inflammatory activity. DIAGNOSTIC DATA: White cell count 10.7, hemoglobin 12.3, platelets 128, and 38% neutrophils. Sodium 146, creatinine 3.66, which is improved compared to April 23, but about the same as the admitting value. AST was 59, ALT 163, and alkaline phosphatase 320 and this is a resolution of rhabdomyolysis. Two strains of E coli isolated with resistance to quinolones and third generation cephalosporins. ASSESSMENT AND DISCUSSION: Type 2 diabetes, uterine fibroids, obstruction of distal right and left ureters presumably from the fibroids, urosepsis with ESBL Escherichia coli. The patient has received about 7 days of therapy thus far and probably another 3 to 4 days should be enough to finish off the treatment. In the outpatient setting, she will be referred for hysterectomy and then follow up imaging studies of the ureters and kidneys to verify improvement. She will be at risk for recurrence of the problem until this obstructive phenomenon is resolved. Job ID: [id number]
[2019-04-30] MEDS: hydrALAZINE 20 MG/ML VIAL SLOW IVP PRN ×3 (03:14→16:43)
[2019-04-30 06:14] LABS: #Eosinphils 0.3 thou/uL (0.0-0.7); #Lymphocytes 1.6 thou/uL (1.20-3.40); #Monocytes 1.1 thou/uL (0.11-0.59); #Neutrophils 10.1 thou/uL (1.40-6.50); %Basophils 0.1 % (0.0-1.0); %Lymphocytes 12.1 % (21.0-51.0); %Monocytes 8.5 % (0.0-10.0); %Neutrophils 77.4 % (42.0-75.0); Hemoglobin 9.6 g/dL (12.0-16.0); Mean Corpuscular HGB CONC 33.2 g/dL (32.0-36.0); Mean Corpuscular Volume 87.5 fL (78.0-98.0); Mean Platelet Volume 9.5 fL (7.4-10.4); Platelet Count 323 thou/uL (130-400); RBC Distribution Width 13.7 % (11.5-14.5)
[2019-04-30 06:33] LABS: ALT (SGPT) 136 U/L (8-55); AST (SGOT) 53 U/L (5-34); Albumin 2.9 g/dL (3.5-5.0); Alkaline Phosphatase 331 U/L (40-110); Anion Gap 11 mmol/L (10-20); BUN (Urea Nitrogen) 63 mg/dL (9.8-20.1); Bilirubin, Total 0.7 mg/dL (0.2-1.2); Calc. Creatinine Clearance 32 mL/min (70-130); Calcium 8.9 mg/dL (7.8-10.44); Carbon Dioxide 26 mmol/L (22-29); Chloride 117 mmol/L (98-107); Estimated GFR-MDRD 18; Globulin 3.6 g/dL (2.4-3.5); Glucose 104 mg/dL (70-105); Phosphorus 6.6 mg/dL (2.3-4.7); Potassium 3.9 mmol/L (3.5-5.1); Protein, Total 6.5 g/dL (6.0-8.3); Sodium 150 mmol/L (136-145)
[2019-04-30] MEDS: Insulin Glargine 28 UNITS in Pre-Filled Syringe 1 EACH SC SCH ×2 (09:14→20:31)
[2019-04-30] MEDS: hydrALAZINE 25 MG TAB PO SCH ×2 (09:15→20:30)
[2019-04-30] MEDS: Famotidine 20 MG TAB PO SCH (09:16)
[2019-04-30] MEDS: Furosemide 40 MG TAB PO SCH (09:16)
[2019-04-30] MEDS: Saccharomyces boulardii 250 MG CAP PO SCH (09:16)
[2019-04-30] MEDS: Meropenem 500 MG in Sodium Chloride 0.9% 100 ML IVPB SCH (10:20)
--- NOTE | 2019-04-30 12:37 | PRG ---
DATE OF SERVICE: 04/30/2019 SERVICE: Nephrology. SUBJECTIVE: A 59-year-old female is being followed up for acute renal failure. The patient clinically is improving. Oral intake remained suboptimal. OBJECTIVE: VITAL SIGNS: Temperature 96.1, pulse 67, respiratory rate 18, SpO2 of 99% on room air, blood pressure is 158/69. GENERAL: Obese female, in no distress. Afebrile. Anicteric, acyanotic. HEENT: Normocephalic, atraumatic. Oral mucosa is moist. CARDIOVASCULAR: Regular rhythm and rate with normal heart sounds 1 and 2. RESPIRATORY: Good air entry bilaterally with no crackle or rhonchi or use of accessory muscles. GI: Obese, soft, nontender, nondistended with normal bowel sounds. EXTREMITIES: Trace to mild bilateral leg edema noted. 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 Cranial nerves 2 through 12 are grossly intact. DIAGNOSTIC DATA: CBC showed WBC count of 13.0, hemoglobin of 9.6, and platelets of 323. CMP showed sodium 150, potassium 3.9, chloride 117, CO2 of 26, BUN 63, creatinine 3.23, glucose 104, calcium 8.9, phosphorus 6.6, total bilirubin 0.7, AST 53, ALT is 136, alkaline phosphatase 331, total protein 6.5, albumin 2.9, globulin 3.6. 25-hydroxy vitamin D is 9.1. PTH intact is 194. ASSESSMENT: 1. Acute renal failure due to volume depletion, sepsis, and rhabdomyolysis. Levels are trending downward. 2. Hypernatremia: due to free water deficit. 3. Vitamin D deficiency. 4. Secondary hyperparathyroidism. 5. Anemia in chronic kidney disease. 6. Diabetes mellitus, new diagnosis. 7. Uncontrolled diabetes with diabetic ketoacidosis. 8. Metabolic acidosis, resolved. 9. Fibroid uterus. 10. Right-sided mild hydronephrosis. 11. HTN: Control is suboptimal PLAN: 1. [place] free water intake recommended. The patient is advised to take at least 2 L of free water today. 2. We will discontinue diuretics, Lasix. 3. We will start vitamin D supplementation. 4. We will also start Renvela given progressively increasing phosphorus level. 5. We will recheck CMP and CK in the morning. 6. Will restart nifedipine which was discontinued. will monitor vitals with a view to increasing dose to get adequate BP control. Job ID: [id number] MTDD
[2019-04-30] MEDS ORDERED: NIFEdipine XL 60 MG TAB PO SCH (12:45)
--- NOTE | 2019-04-30 13:48 | PDOC.HOSPP ---
- Subjective Subjective: Clinically improving. Edema improving. Breathing well on room air. On broad spectrum ABX for resistant e.coli. - Objective Vital Signs & Weight: Vital Signs (12 hours) Temp Pulse Resp BP BP Pulse Ox 04/30/19 12:51 67 194/83 H 04/30/19 12:35 67 194/83 H 04/30/19 12:00 97.8 F 65 18 194/83 H 04/30/19 09:15 67 158/69 H 04/30/19 08:00 96.1 F L 67 18 158/69 H 99 04/30/19 04:46 151/66 H 04/30/19 03:43 97.7 F 70 16 180/78 H 96 04/30/19 03:14 69 178/78 H 04/30/19 03:11 69 178/78 H 04/30/19 02:03 72 185/79 H Weight Admit Weight 201 lb 11.567 oz Weight 243 lb 14.4 oz Most Recent Monitor Data Heart Rate from ECG 79 NIBP 143/51 NIBP BP-Mean 81 Respiration from ECG 18 SpO2 96 I&O: 04/29/19 04/30/19 05/01/19 06:59 06:59 06:59 Intake Total 200 961 Output Total 2950 Balance -1988 Result Diagrams: 04/30/19 05:33 04/30/19 05:33 Additional Labs: Accuchecks 04/30/19 04/30/19 04/29/19 10:52 05:29 21:23 POC Glucose 144 H 108 126 H 04/29/19 16:40 POC Glucose 102 Hospitalist ROS - Review of Systems All other systems reviewed; all pertinent +/- noted in HPI/Subj - Medication Medications: Active Medications Generic Name Dose Route Start Last Admin Trade Name Freq PRN Reason Stop Dose Admin Famotidine 20 mg 04/27/19 09:00 04/30/19 09:16 Pepcid PO 20 mg DAILY KALI Administration Hydralazine HCl 20 mg 04/23/19 10:04 04/30/19 12:35 Apresoline SLOW IVP 20 mg Q2H PRN Administration Hypertension Hydralazine HCl 100 mg 04/29/19 21:00 04/30/19 09:15 Apresoline PO 100 mg BID KALI Administration Meropenem 500 mg/ Sodium 100 mls @ 200 mls/hr 04/28/19 10:00 04/30/19 10:20 Chloride IVPB 100 mls 1000 KALI Administration Insulin Glargine 28 units/ 0.28 mls @ 0.4 mls/hr 04/28/19 21:00 04/30/19 09: 14 Miscellaneous Medication SC 0.28 mls BID KALI Administration Insulin Human Lispro 0 units 04/24/19 14:08 04/28/19 21:02 Humalog SC 4 unit .MODERATE SLIDING SC PRN Administration MODERATE SLIDING SCALE Protocol Labetalol HCl 10 mg 04/29/19 14:35 04/30/19 02:03 Normodyne SLOW IVP 10 mg Q4H PRN Administration SBP Greater Than 180 Metoprolol Succinate 50 mg 04/27/19 21:00 04/30/19 09:16 Toprol Xl PO 50 mg BID KALI Administration Nifedipine 60 mg 04/30/19 12:45 04/30/19 12:51 Procardia Xl PO 04/30/19 15:00 60 mg NOW KALI Administration Polyethylene Glycol 17 gm 04/27/19 10:16 04/28/19 08:53 Miralax PO 17 gm DAILYPRN PRN Administration Constipation Saccharomyces Boulardii 250 mg 04/26/19 09:00 04/30/19 09:16 Florastor PO 250 mg DAILY KALI Administration Sertraline HCl 50 mg 04/29/19 09:00 04/30/19 09:16 Zoloft PO 50 mg DAILY KALI Administration Sodium Chloride 10 ml 04/21/19 03:41 04/30/19 12:36 Flush - Normal Saline IVF 10 ml PRN PRN Administration Saline Flush - Exam General Appearance: NAD, awake alert Eye: PERRL ENT: normocephalic atraumatic, moist mucosa Neck: supple, symmetric, no lymphadenopathy Heart: RRR, no murmur, no gallops Respiratory: CTAB, no wheezes, no rales, no ronchi Gastrointestinal: soft, non-tender, non-distended, no guarding, no rigidity Extremities: no edema Skin: no lesions, no rashes Neurological: cranial nerve grossly intact, normal sensation to touch, no focal deficits Musculoskeletal: no muscle wasting Psychiatric: normal affect, A&O x 3 Hosp A/P (1) HERACLIO (acute kidney injury) Code(s): N17.9 - ACUTE KIDNEY FAILURE, UNSPECIFIED Status: Acute (2) DKA (diabetic ketoacidoses) Code(s): E11.10 - TYPE 2 DIABETES MELLITUS WITH KETOACIDOSIS WITHOUT COMA Status: Resolved (3) 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 Code(s): E11.21 - TYPE 2 DIABETES MELLITUS WITH DIABETIC NEPHROPATHY; E11.65 - TYPE 2 DIABETES MELLITUS WITH HYPERGLYCEMIA Status: Chronic (4) HTN (hypertension) Code(s): I10 - ESSENTIAL (PRIMARY) HYPERTENSION Status: Chronic (5) HLD (hyperlipidemia) Code(s): E78.5 - HYPERLIPIDEMIA, UNSPECIFIED Status: Chronic (6) Obesity Code(s): E66.9 - OBESITY, UNSPECIFIED Status: Chronic - Plan Plan: Med/ tel nephrology consultation, recommendations appreciated cardiology consultation, recommendations appreciated Pulm consultation, recommendations appreciated Urology consultation, recommendations appreciated renal function improving DM regimen: -Increase to Lantus 28 units BID -ISS - moderate blood pressure control, medications adjusted as needed per nephrology, recs appreciated Continue home medications as able Continue broad spectrum ABX for resistant e.coli in blood and urine Repeat blood cultures have demonstrated sterilization of the blood Stool sample for c.diff, added Stool lactoferrin, if this is abnormal will have to overrule policy to rule out c.diff.
[2019-04-30] MEDS: Sevelamer Carbonate 800 MG TAB PO SCH (18:03)
[2019-05-01 06:41] LABS: ALT (SGPT) 111 U/L (8-55); AST (SGOT) 45 U/L (5-34); Alkaline Phosphatase 298 U/L (40-110); Anion Gap 14 mmol/L (10-20); BUN (Urea Nitrogen) 52 mg/dL (9.8-20.1); Bilirubin, Total 0.6 mg/dL (0.2-1.2); Calc. Creatinine Clearance 39 mL/min (70-130); Calcium 8.8 mg/dL (7.8-10.44); Carbon Dioxide 22 mmol/L (22-29); Chloride 115 mmol/L (98-107); Estimated GFR-MDRD 22; Globulin 3.8 g/dL (2.4-3.5); Glucose 98 mg/dL (70-105); Potassium 3.8 mmol/L (3.5-5.1); Protein, Total 6.8 g/dL (6.0-8.3); Sodium 147 mmol/L (136-145)
[2019-05-01] MEDS ORDERED: NIFEdipine XL 60 MG TAB PO SCH (09:00)
[2019-05-01] MEDS: Saccharomyces boulardii 250 MG CAP PO SCH (10:04)
[2019-05-01] MEDS: hydrALAZINE 25 MG TAB PO SCH ×2 (10:05→21:18)
[2019-05-01] MEDS: Sevelamer Carbonate 800 MG TAB PO SCH ×3 (10:07→17:01)
[2019-05-01] MEDS: NIFEdipine XL 90 MG TAB PO SCH (10:07)
[2019-05-01] MEDS: Famotidine 20 MG TAB PO SCH (10:07)
[2019-05-01] MEDS: Insulin Glargine 28 UNITS in Pre-Filled Syringe 1 EACH SC SCH ×2 (10:08→21:18)
[2019-05-01] MEDS: Meropenem 500 MG in Sodium Chloride 0.9% 100 ML IVPB SCH (11:55)
[2019-05-01] MEDS ORDERED: Furosemide 20 MG TAB PO SCH (12:15)
--- NOTE | 2019-05-01 12:19 | PDOC.HOSPP ---
- Subjective Subjective: Seen and examined. Family at bedside, many questions were asked, all answered in detail. Patient overall clinically improving. Denies fever chills. Making good urine. Renal function improving. Discussed the importance of diabetic diet and blood sugar control when she is stable to go home. Will continue IV antibiotics for ESBL E. coli responding to broad spectrum ABX which will finish on 05/03 vs 05/04 per ID. Will need outpatient hysterectomy. - Objective Vital Signs & Weight: Vital Signs (12 hours) Temp Pulse Resp BP BP Pulse Ox 05/01/19 10:07 67 161/89 H 05/01/19 10:05 67 161/89 H 05/01/19 04:00 97.9 F 67 18 161/67 H 97 Weight Admit Weight 201 lb 11.567 oz Weight 243 lb 14.4 oz Most Recent Monitor Data Heart Rate from ECG 79 NIBP 143/51 NIBP BP-Mean 81 Respiration from ECG 18 SpO2 96 I&O: 04/30/19 05/01/19 05/02/19 06:59 06:59 06:59 Intake Total 961 2040 Output Total 2950 2500 Balance -1988460 Result Diagrams: 04/30/19 05:33 05/01/19 06:05 Additional Labs: Accuchecks 05/01/19 05/01/19 04/30/19 11:31 04:02 20:32 POC Glucose 126 H 105 137 H 04/30/19 18:07 POC Glucose 117 H Hospitalist ROS - Review of Systems All other systems reviewed; all pertinent +/- noted in HPI/Subj - Medication Medications: Active Medications Generic Name Dose Route Start Last Admin Trade Name Freq PRN Reason Stop Dose Admin Famotidine 20 mg 04/27/19 09:00 05/01/19 10:07 Pepcid PO 20 mg DAILY KALI Administration Hydralazine HCl 20 mg 04/23/19 10:04 04/30/19 16:43 Apresoline SLOW IVP 20 mg Q2H PRN Administration Hypertension Hydralazine HCl 100 mg 04/29/19 21:00 05/01/19 10:05 Apresoline PO 100 mg BID KALI Administration Meropenem 500 mg/ Sodium 100 mls @ 200 mls/hr 04/28/19 10:00 05/01/19 11:55 Chloride IVPB 100 mls 1000 KALI Administration Insulin Glargine 28 units/ 0.28 mls @ 0.4 mls/hr 04/28/19 21:00 05/01/19 10: 08 Miscellaneous Medication SC 0.28 mls BID KALI Administration Insulin Human Lispro 0 units 04/24/19 14:08 04/28/19 21:02 Humalog SC 4 unit .MODERATE SLIDING SC PRN Administration MODERATE SLIDING SCALE Protocol Labetalol HCl 10 mg 04/29/19 14:35 04/30/19 02:03 Normodyne SLOW IVP 10 mg Q4H PRN Administration SBP Greater Than 180 Metoprolol Succinate 50 mg 04/27/19 21:00 05/01/19 10:05 Toprol Xl PO 50 mg BID KALI Administration Nifedipine 90 mg 05/01/19 09:00 05/01/19 10:07 Procardia Xl PO 90 mg DAILY KALI Administration Polyethylene Glycol 17 gm 04/27/19 10:16 04/28/19 08:53 Miralax PO 17 gm DAILYPRN PRN Administration Constipation Saccharomyces Boulardii 250 mg 04/26/19 09:00 05/01/19 10:04 Florastor PO 250 mg DAILY KALI Administration Sertraline HCl 50 mg 04/29/19 09:00 05/01/19 10:06 Zoloft PO 50 mg DAILY KALI Administration Sevelamer Carbonate 800 mg 04/30/19 17:00 05/01/19 11:55 Renvela PO 800 mg TID-WM KALI Administration Sodium Chloride 10 ml 04/21/19 03:41 04/30/19 12:36 Flush - Normal Saline IVF 10 ml PRN PRN Administration Saline Flush - Exam General Appearance: NAD Eye: PERRL, anicteric sclera ENT: moist mucosa Neck: supple, symmetric, no lymphadenopathy Heart: no murmur, no gallops, no rubs Respiratory: CTAB, no wheezes, no rales, no ronchi Gastrointestinal: soft, non-tender, non-distended, no guarding, no rigidity Extremities: 1+ LE edema Skin: no lesions, no rashes Neurological: cranial nerve grossly intact, normal sensation to touch Musculoskeletal: generalized weakness Psychiatric: normal affect, A&O x 3 Hosp A/P (1) HERACLIO (acute kidney injury) Code(s): N17.9 - ACUTE KIDNEY FAILURE, UNSPECIFIED Status: Acute (2) DKA (diabetic ketoacidoses) Code(s): E11.10 - TYPE 2 DIABETES MELLITUS WITH KETOACIDOSIS WITHOUT COMA Status: Resolved (3) 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 Code(s): E11.21 - TYPE 2 DIABETES MELLITUS WITH DIABETIC NEPHROPATHY; E11.65 - TYPE 2 DIABETES MELLITUS WITH HYPERGLYCEMIA Status: Chronic (4) HTN (hypertension) Code(s): I10 - ESSENTIAL (PRIMARY) HYPERTENSION Status: Chronic (5) HLD (hyperlipidemia) Code(s): E78.5 - HYPERLIPIDEMIA, UNSPECIFIED Status: Chronic (6) Obesity Code(s): E66.9 - OBESITY, UNSPECIFIED Status: Chronic - Plan Plan: Med/ surg nephrology consultation, recommendations appreciated cardiology consultation, recommendations appreciated Pulm consultation, recommendations appreciated Urology consultation, recommendations appreciated renal function improving DM regimen: -Lantus 28 units BID -ISS - moderate blood pressure control, medications adjusted as needed per nephrology, recs appreciated Continue home medications as able Continue broad spectrum ABX for resistant e.coli in blood and urine - ESBL e.coli to finish broad spectrum coverage on 05/03 vs 05/04 per ID Repeat blood cultures have demonstrated sterilization of the blood
--- NOTE | 2019-05-01 12:36 | PRG ---
DATE OF SERVICE: 05/01/2019 SERVICE: Nephrology. SUBJECTIVE: A 59-year-old female being followed up for acute renal failure and hypertension. The patient was admitted due to acute encephalopathy and uncontrolled diabetes with UTI and sepsis. Clinically improved. Denied nausea, vomiting. Oral intake is improving. OBJECTIVE: VITAL SIGNS: Temperature 97.9, pulse 67, respiratory rate 18, SpO2 of 97 on room air, blood pressure is 161/89. GENERAL: Obese female, in no distress. Afebrile. Anicteric. Acyanotic. HEENT: Normocephalic, atraumatic. Oral mucosa is moist. NECK: Short thick neck with no obvious JVD. CARDIOVASCULAR: Regular rhythm and rate with normal heart sounds 1 and 2. RESPIRATORY: Fair air entry bilaterally with no obvious crackle or rhonchi or use of accessory muscles. GI: Full, soft, nontender, nondistended with normal bowel sounds. EXTREMITIES: Mild bilateral leg edema noted. Mild edema of left hand noted. 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 Cranial nerves 2 through 12 are grossly intact. The patient is ambulant with support. DIAGNOSTIC DATA: CMP showed sodium 147, potassium 3.8, chloride 115, CO2 of 22, BUN 52, creatinine 2.65, glucose 98, calcium 8.8, total bilirubin 0.6, AST 45, ALT 111, alkaline phosphatase 298, total protein 6.8, albumin 3.0, globulin 3.8. ASSESSMENT: 1. Acute renal failure: Creatinine and BUN are progressively trending downwards. Creatinine today is 2.65 from a peak of 6.88. 2. Hypernatremia: Due to free water deficit. Aggressive free water intake was recommended and chloride is trending downwards. Sodium is 147, down from 150 yesterday. 3. Volume overload. 4. Metabolic acidosis: Improved. 5. Hypertension: Control remains suboptimal. 6. Uncontrolled diabetes control is better. 7. Abnormal liver function tests: Due to rhabdomyolysis and sepsis. Levels are trending downwards progressively. 8. Rhabdomyolysis: Improved greatly. CPK has trended downwards to a aba of 197 from peak of 2900. 9. Right-sided mild hydronephrosis. [place] to be related to fibroid uterus. Referral to Gynecology for attention to fibroids is recommended by urologist. PLAN: 1. [place] free water intake advised. We will restart Lasix with improvement in hypernatremia. 2. We will also increase nifedipine to 90 p.o. daily to get better blood pressure control. 3. We will continue hydralazine. 4. We will repeat CMP and CPK tomorrow as well as CBC. 5. Other treatment as per primary attending. Job ID: [id number]
[2019-05-02 06:18] LABS: #Eosinphils 0.3 thou/uL (0.0-0.7); #Lymphocytes 1.8 thou/uL (1.20-3.40); #Monocytes 1.1 thou/uL (0.11-0.59); %Basophils 0.4 % (0.0-1.0); %Eosinophils 2.3 % (0.0-10.0); %Lymphocytes 14.4 % (21.0-51.0); %Neutrophils 73.9 % (42.0-75.0); Hemoglobin 9.3 g/dL (12.0-16.0); Mean Corpuscular HGB CONC 33.8 g/dL (32.0-36.0); Mean Corpuscular Hemoglobin 29.3 pg (27.0-31.0); Mean Corpuscular Volume 86.5 fL (78.0-98.0); Mean Platelet Volume 8.8 fL (7.4-10.4); Platelet Count 366 thou/uL (130-400); RBC Distribution Width 13.4 % (11.5-14.5); Red Blood Cell (RBC) Count 3.19 mill/uL (4.20-5.40); White Blood Cell (WBC) Count 12.2 thou/uL (4.8-10.8)
[2019-05-02 06:38] LABS: ALT (SGPT) 90 U/L (8-55); AST (SGOT) 46 U/L (5-34); Alkaline Phosphatase 278 U/L (40-110); Anion Gap 13 mmol/L (10-20); BUN (Urea Nitrogen) 40 mg/dL (9.8-20.1); Bilirubin, Total 0.6 mg/dL (0.2-1.2); CK (CPK) 80 U/L (29-168); Calc. Creatinine Clearance 53 mL/min (70-130); Calcium 8.8 mg/dL (7.8-10.44); Carbon Dioxide 23 mmol/L (22-29); Chloride 114 mmol/L (98-107); Estimated GFR-MDRD 31; Globulin 3.6 g/dL (2.4-3.5); Glucose 77 mg/dL (70-105); Potassium 3.5 mmol/L (3.5-5.1); Protein, Total 6.6 g/dL (6.0-8.3); Sodium 146 mmol/L (136-145)
--- NOTE | 2019-05-02 09:22 | PDOC.HOSPP ---
- Subjective Encounter Date: 05/02/19 Encounter Time: 09:20 Subjective: doing well, no pain, fever, etc - Objective Vital Signs & Weight: Vital Signs (12 hours) Temp Pulse Resp BP Pulse Ox 05/02/19 07:40 97.7 F 64 16 164/68 H 97 Weight Admit Weight 201 lb 11.567 oz Weight 243 lb 14.4 oz Most Recent Monitor Data Heart Rate from ECG 79 NIBP 143/51 NIBP BP-Mean 81 Respiration from ECG 18 SpO2 96 I&O: 05/01/19 05/02/19 05/03/19 06:59 06:59 06:59 Intake Total 2040 610 Output Total 2500 Balance -460 610 Result Diagrams: 05/02/19 06:07 05/02/19 06:07 Additional Labs: Accuchecks 05/02/19 05/01/19 05/01/19 06:14 19:16 16:47 POC Glucose 81 115 H 170 H 05/01/19 11:31 POC Glucose 126 H Hospitalist ROS - Medication Medications: Active Medications Generic Name Dose Route Start Last Admin Trade Name Freq PRN Reason Stop Dose Admin Famotidine 20 mg 04/27/19 09:00 05/01/19 10:07 Pepcid PO 20 mg DAILY KALI Administration Hydralazine HCl 20 mg 04/23/19 10:04 04/30/19 16:43 Apresoline SLOW IVP 20 mg Q2H PRN Administration Hypertension Hydralazine HCl 100 mg 04/29/19 21:00 05/01/19 21:18 Apresoline PO 100 mg BID KALI Administration Meropenem 500 mg/ Sodium 100 mls @ 200 mls/hr 04/28/19 10:00 05/01/19 11:55 Chloride IVPB 100 mls 1000 KALI Administration Insulin Glargine 28 units/ 0.28 mls @ 0.4 mls/hr 04/28/19 21:00 05/01/19 21: 18 Miscellaneous Medication SC 0.28 mls BID KALI Administration Insulin Human Lispro 0 units 04/24/19 14:08 04/28/19 21:02 Humalog SC 4 unit .MODERATE SLIDING SC PRN Administration MODERATE SLIDING SCALE Protocol Labetalol HCl 10 mg 04/29/19 14:35 04/30/19 02:03 Normodyne SLOW IVP 10 mg Q4H PRN Administration SBP Greater Than 180 Metoprolol Succinate 50 mg 04/27/19 21:00 05/01/19 21:18 Toprol Xl PO 50 mg BID KALI Administration Nifedipine 90 mg 05/01/19 09:00 05/01/19 10:07 Procardia Xl PO 90 mg DAILY KALI Administration Polyethylene Glycol 17 gm 04/27/19 10:16 04/28/19 08:53 Miralax PO 17 gm DAILYPRN PRN Administration Constipation Saccharomyces Boulardii 250 mg 04/26/19 09:00 05/01/19 10:04 Florastor PO 250 mg DAILY KALI Administration Sertraline HCl 50 mg 04/29/19 09:00 05/01/19 10:06 Zoloft PO 50 mg DAILY KALI Administration Sevelamer Carbonate 800 mg 04/30/19 17:00 05/01/19 17:01 Renvela PO Not Given TID-WM KALI Sodium Chloride 10 ml 04/21/19 03:41 04/30/19 12:36 Flush - Normal Saline IVF 10 ml PRN PRN Administration Saline Flush - Exam General Appearance: awake alert Neck: no JVD Heart: RRR, no murmur Respiratory: CTAB Gastrointestinal: soft, normal bowel sounds Extremities: no edema Hosp A/P (1) DKA (diabetic ketoacidoses) Code(s): E11.10 - TYPE 2 DIABETES MELLITUS WITH KETOACIDOSIS WITHOUT COMA Status: Resolved Qualifiers: Diabetes mellitus type: type 2 Diabetes mellitus complication detail: without coma Qualified Code(s): E11.10 - Type 2 diabetes mellitus with ketoacidosis without coma (2) Hydronephrosis Code(s): N13.30 - UNSPECIFIED HYDRONEPHROSIS Status: Acute Qualifiers: Hydronephrosis type: unspecified Qualified Code(s): N13.30 - Unspecified hydronephrosis (3) UTI (urinary tract infection) Status: Acute Qualifiers: Urinary tract infection type: acute cystitis (4) HERACLIO (acute kidney injury) Code(s): N17.9 - ACUTE KIDNEY FAILURE, UNSPECIFIED Status: Acute (5) HTN (hypertension) Code(s): I10 - ESSENTIAL (PRIMARY) HYPERTENSION Status: Chronic - Plan cont meropenem 1 more day cont accu/ss/ glargine self administration of insulin training cont metoprolol, nifedipine, hydralazine
[2019-05-02] MEDS: Saccharomyces boulardii 250 MG CAP PO SCH (09:44)
[2019-05-02] MEDS: NIFEdipine XL 90 MG TAB PO SCH (09:44)
[2019-05-02] MEDS: Famotidine 20 MG TAB PO SCH (09:45)
[2019-05-02] MEDS: Furosemide 40 MG TAB PO SCH (09:45)
[2019-05-02] MEDS: hydrALAZINE 25 MG TAB PO SCH ×2 (09:45→20:01)
[2019-05-02] MEDS: Sevelamer Carbonate 800 MG TAB PO SCH ×3 (09:45→17:11)
[2019-05-02] MEDS: Insulin Glargine 28 UNITS in Pre-Filled Syringe 1 EACH SC SCH ×2 (09:46→20:26)
--- NOTE | 2019-05-02 09:52 | PRG ---
DATE OF SERVICE: 05/02/2019 SUBJECTIVE: This morning, the patient is awake, alert, responsive, no longer encephalopathic. OBJECTIVE: VITAL SIGNS: Saturations on room air, temperature 97, blood pressure . CHEST: No wheezing or crackles. CARDIAC: Normal S1 and S2. No masses. LABORATORY DATA: Creatinine 1.98. Liver function was improved. White count 12,000. ASSESSMENT: 1. Azotemia, improved. 2. Nonketotic hyperosmolar coma, much improved. 3. Respiratory failure, improved. 4. Sepsis. PLAN: Pulmonary will follow at a distance. Please call as needed. Antibiotics per Infectious Disease. Job ID: [id number]
[2019-05-02] MEDS: Meropenem 500 MG in Sodium Chloride 0.9% 100 ML IVPB SCH (11:09)
--- NOTE | 2019-05-02 11:41 | PRG ---
DATE OF SERVICE: 05/02/2019 SERVICE: Nephrology. SUBJECTIVE: A 59-year-old female being followed up for acute renal failure and electrolyte derangement. The patient reports feeling a lot better today. Participating with Physical therapy with PT. Denied nausea, vomiting, abdominal pain, or change in bowel habit. Oral intake is improving. OBJECTIVE: VITAL SIGNS: Temperature 97.7, pulse 64, respiratory rate 16, SpO2 of 97 on room air, and blood pressure is 164/68. GENERAL: Obese female, in no obvious distress. Afebrile. Anicteric. Acyanotic. HEENT: Normocephalic and atraumatic. Oral mucosa is moist. CARDIOVASCULAR: Regular rhythm and rate with normal heart sounds one and two. RESPIRATORY: Good air entry bilaterally with no crackle or rhonchi or use of accessory muscles. GI: Obese, soft, nontender, and nondistended with normal bowel sounds. EXTREMITIES: Mild bilateral leg edema noted. 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 Cranial nerves 2 through 12 are grossly intact. The patient moves all extremities. DIAGNOSTIC DATA: CBC showed WBC count of 12.2, hemoglobin of 9.3, MCV of 86.5, and platelet of 366. CMP showed sodium 146, potassium 3.5, chloride 114, CO2 of 23, BUN 40, creatinine 1.98, glucose 77, calcium 8.8, total bilirubin 0.6, AST 46, ALT 90, and alkaline phosphatase 278. Total protein 6.6, albumin 3.0, and globulin 3.6. CPK is 80 down from peak of 2977. ASSESSMENT: 1. Acute renal failure: Multifactorial from volume depletion, sepsis, rhabdomyolysis, as well as obstructive uropathy. Clinically improved. Creatinine is down to 1.98 from peak of 6.88. 2. Hypernatremia: Due to free water deficit. Sodium is down to 146 from peak of 150. 3. Volume overload: This related to aggressive fluid resuscitation earlier on during hospitalization. Clinically improving with diuretic therapy. 4. Metabolic acidosis: Resolving. 5. Hyperkalemia: Resolved. 6. Rhabdomyolysis: Resolved. 7. Hypertension: Control is better, but still suboptimal. PLAN: 1. We will monitor vitals with a view to increasing nifedipine to 120 mg p.o. daily, if blood pressure is not at goal. We will continue to monitor renal function. 2. Continue liberal free water intake as well as diuretic therapy with Lasix. 3. Repeat renal function in the morning. Job ID: [id number]
[2019-05-03 05:25] LABS: ALT (SGPT) 75 U/L (8-55); AST (SGOT) 40 U/L (5-34); Albumin 3.1 g/dL (3.5-5.0); Alkaline Phosphatase 259 U/L (40-110); Anion Gap 9 mmol/L (10-20); BUN (Urea Nitrogen) 30 mg/dL (9.8-20.1); Bilirubin, Total 0.6 mg/dL (0.2-1.2); Calc. Creatinine Clearance 61 mL/min (70-130); Calcium 8.8 mg/dL (7.8-10.44); Carbon Dioxide 27 mmol/L (22-29); Chloride 113 mmol/L (98-107); Estimated GFR-MDRD 37; Globulin 3.5 g/dL (2.4-3.5); Glucose 81 mg/dL (70-105); Potassium 3.5 mmol/L (3.5-5.1); Protein, Total 6.6 g/dL (6.0-8.3); Sodium 145 mmol/L (136-145)
[2019-05-03] MEDS ORDERED: Meropenem 1,000 MG in Sodium Chloride 0.9% 100 ML IVPB SCH (06:19)
[2019-05-03] MEDS ORDERED: NIFEdipine XL 90 MG TAB PO SCH (06:19)
[2019-05-03 07:14] LABS: Phosphorus 4.2 mg/dL (2.3-4.7)
[2019-05-03 07:17] VITALS: TEMP 98.1
[2019-05-03] MEDS: hydrALAZINE 25 MG TAB PO SCH (08:46)
[2019-05-03] MEDS: Famotidine 20 MG TAB PO SCH (08:47)
[2019-05-03] MEDS: Saccharomyces boulardii 250 MG CAP PO SCH (08:47)
[2019-05-03] MEDS: Sevelamer Carbonate 800 MG TAB PO SCH ×2 (08:47→12:10)
[2019-05-03] MEDS: Furosemide 40 MG TAB PO SCH (08:48)
[2019-05-03] MEDS: Insulin Glargine 28 UNITS in Pre-Filled Syringe 1 EACH SC SCH (08:48)
[2019-05-03] MEDS ORDERED: NIFEdipine XL 60 MG TAB PO SCH (09:00)
--- NOTE | 2019-05-03 09:32 | PRG ---
DATE OF SERVICE: 05/03/2019 SERVICE: Nephrology. SUBJECTIVE: A 59-year-old female being followed up for acute renal failure and hypertension. The patient was initially admitted due to acute and metabolic encephalopathy and uncontrolled diabetes. Clinically improved. Generalized weakness and poor oral intake, improved. The patient is ambulating with walker. OBJECTIVE: VITAL SIGNS: Temperature 98.1, pulse 63, respiratory rate 16, SpO2 of 98% on room air, and blood pressure is 162/69. GENERAL: Obese female, in no obvious distress. Afebrile. Anicteric. Acyanotic. HEENT: Normocephalic and atraumatic. Oral mucosa is moist. CARDIOVASCULAR: Regular rhythm and rate with normal heart sounds one and two. RESPIRATORY: Good air entry bilaterally with no crackle or rhonchi or use of accessory muscles. GI: Full, soft, nontender, and nondistended with normal bowel sounds. EXTREMITIES: Trace to mild bilateral leg edema noted. No erythema or cyanosis appreciated. TIMBER ROBBER: Conscious and alert and oriented x3 with appropriate mental status. Cranial nerves 2 through 12 are grossly intact. The patient moves all extremities. DIAGNOSTIC DATA: CMP showed sodium 145, potassium 3.5, chloride 113, CO2 of 27, BUN 30, creatinine 1.72, glucose 81, calcium 8.8, total bilirubin 0.6, AST 40, ALT 75, alkaline phosphatase 259, total protein 6.6, albumin 3.1, and globulin 3.5. Phosphorus is 4.2. ASSESSMENT: 1. Acute renal failure: Due to multiple factors including sepsis, volume depletion, rhabdomyolysis, and possible pyelonephritis with obstructive uropathy. Renal function is improving with creatinine trending downwards to 1.7 today from peak of 6.88. 2. Rhabdomyolysis: Resolved. 3. Hypernatremia: Due to free water deficit: Resolved with aggressive oral free water provision. 4. Metabolic acidosis: Resolved. 5. Hypertension: Control is still suboptimal. 6. Volume overload: Improving. PLAN: 1. Increase nifedipine to 120 mg p.o. daily. 2. Discontinue Renvela with serum phosphate of 4.2 and improving renal failure. 3. [place] free water intake recommended. 4. Continue diuretic therapy with Lasix, which will help with fluid management as well as with BP control. 5. Disposition. The patient can be discharged from Nephrology point of view. It is anticipated that she will go home on current antihypertensives, Toprol-XL 50 b.i.d., nifedipine 120 mg daily, and hydralazine 100 mg b.i.d. as well as Lasix 40 mg p.o. daily. Close followup in 1 week is recommended. The patient is to do blood work on May 11 and will be seen in clinic on May 12 for re-evaluation. Many thanks, we will continue to follow up with you. Job ID: [id number]
[2019-05-03] MEDS ORDERED: MEROPENEM 1 GM/50 ML 1 GM in Premix Bag 1 BAG IVPB SCH (10:00)
--- NOTE | 2019-05-03 10:44 | DIS ---
DATE OF ADMISSION: 04/21/2019 DATE OF DISCHARGE: 05/03/2019 PRIMARY CARE PROVIDER: Wendi Rojo DO DISPOSITION: Discharged home. FINAL DIAGNOSES: Acute diabetic ketoacidosis, acute renal failure, urinary tract infection, hydronephrosis most likely related to an enlarged uterus, and hypertension. DISCHARGE MEDICATIONS: 1. Furosemide 40 mg daily. 2. Hydralazine 100 mg p.o. b.i.d. 3. Insulin glargine 28 units subq b.i.d. 4. Metoprolol 50 mg p.o. b.i.d. 5. Nifedipine 120 mg a day. 6. Renvela 800 mg p.o. t.i.d. with meals. 7. Albuterol HFA 2 puffs q.4 hours p.r.n. 8. Pravastatin 40 mg a day. 9. Zoloft 50 mg a day. MEDICATIONS HELD: Hydrochlorothiazide and lisinopril due to renal failure. ALLERGIES: NO KNOWN DRUG ALLERGIES. DIET: Diabetic. PENDING AT TIME OF DISCHARGE: Nothing. CODE STATUS: Full. HOSPITAL COURSE: The patient was admitted to [facility] through [facility] with complaints of confusion and high blood sugar. The patient with no history of diabetes mellitus. CO2 on lytes 16 to 17, creatinine was elevated 4.7, and lactic acid 11. Troponin of 0.159. Glucose when is high as 1320. The patient was started on IV fluids and IV insulin infusion at 6 units an hour. The patient's ketoacidosis improved rapidly. Her renal function remains poor. At the time of discharge, it had improved to creatinine of 1.7 with a GFR of 37. Blood count showed a mild anemia of 9.8, most likely related to her hydronephrosis, which was discovered on 04/22/[address] was done. Echocardiogram revealed EF of 75% to 80% with grade 1 diastolic dysfunction. Multiple consultations were obtained. Dr. Jesu Hagen, senior master scheduler; Dr. Teodoro Tovar, Cardiology; Dr. Dave Vaughan, Genitourinary; and Dr. Jose Alexander, Infectious Disease. The patient had an E. coli urinary tract infection, which was resistant to ampicillin and cefepime, sensitive to meropenem. The patient has received adequate meropenem during her hospital stay per discussion with Dr. Alexander, Infectious Disease. She was transitioned from IV insulin to sliding scale insulin to insulin glargine. Her most recent metabolic profile shows a sodium 145, potassium 3.5, CO2 of 27, and blood sugars were in the 100 range with the lactic acidosis resolved. No procedures were done. It has been ascertained that the patient needs a hysterectomy. She is being referred back to her PCP for followup in one week. She will need to be sent to the appropriate command center analyst for consideration of a hysterectomy. Also, she will need basic metabolic profile at followup to continue to monitor her renal function. The patient states she has excellent support at home for diabetes with multiple members able to give her, her shots, as she is reluctant to do it herself. A 35 minutes were spent preparing this discharge. Job ID: [id number] [facility]
[2019-05-03 10:57] VITALS: BP 152/73
--- NOTE | 2019-05-05 04:50 | PQF ---
[employer] Operator [employer] GIRMA Thompson, WAMPANOAG C [id number] CLINICAL DOCUMENTATION CLARIFICATION FORM: POST DISCHARGE Addendum to original discharge summary date: ____ Late entry note date: __ DATE: 05/05/19 ATTN: Dr. Gordon, [place] Please exercise your independent, professional judgment in responding to the clarification form. Clinical indicators are provided on the bottom of this form for your review Based on your clinical knowledge can you please clarify what the patient actually has. Conflicting documentation was noted in the Medical Record, please clarify if patient is being treated/monitored for: Please check appropriate box(s): [ ] Hyperosmolar nonketotic hyperglycemia with coma [ x] Hyperosmolar nonketotic hyperglycemia without coma [ ] Hyperosmotic hyperketotic hyperglycemia with severe volume depletion [ ] Other diagnosis please specify [ ] Unable to determine In addition, please specify: Present on Admission (POA): [x ] Yes [ ] No [ ] Unable to determine For continuity of documentation, please document condition throughout progress notes and discharge summary. Thank You. CLINICAL INDICATORS - SIGNS / SYMPTOMS/ LABS H&P pg3 04/21 Dr. Lam- Diabetic ketoacidosis H&P pg3 04/21 Dr. Lam-hypernatremia PN pg2 04/22 Dr. Cerda- severe metabolic acidosis: Improving. This is felt to be due to sepsis and diabetic ketoacidosis PN pg1 04/23 Dr. Bowling- hyperosmotic hyperketotic hyperglycemia with severe volume depletion PN pg 2 03/28 Dr. Abrams- nonketotic hyperosmolar coma, improved PN pg 1 04/24 Dr. Bowling- Hyperosmolar nonketotic hyperglycemia with severe volume depletion RISK FACTORS Hypertension- H and P pg.1 Hyperlipidemia- H and P pg.1 Metabolic encephalopathy- PN 04/27 Dr. Hagen pg.1 TREATMENT PICC - Interventional record 04/21 IV Fluids- OCT 02 Humulin R 100units- IV- OCT 02 Insulin Glargine (Lantus 10units SC BID- OCT 02 Glucagon 1gm IM PRN- 04/24 Blood glucose monitoring- Laboratory 04/21 (This form is maintained as a part of the permanent medical record) 2014 [employer]. All Rights Reserved Wilman [email or web address] [not provided] [email or web address]
== END 2019-05-03 14:18 | disposition home or self-care (01) | DRG 871 ==
LOC: ERS 22:53 → IMCU/EMU 04-21 00:50 → CCU 04-22 17:00 → IMCU/EMU 04-24 10:04 → 2NO 04-28 18:08 → T4-B 04-30 17:50
PROVIDERS: ADMIT Family Medicine; ATTEND Family Medicine
PROC: 02HV33Z Insertion of Infusion Device into Superior Vena Cava, Percutaneous Approach (ICD-10-PCS; principal; 2019-04-21)
PROC: B518ZZA Fluoroscopy of Superior Vena Cava, Guidance (ICD-10-PCS; 2019-04-21)
DX: A41.51 Sepsis due to Escherichia coli [E. coli] (principal); E11.00 Type 2 diabetes mellitus with hyperosmolarity without nonketotic hyperglycemic-hyperosmolar coma (NKHHC); G93.41 Metabolic encephalopathy; I21.A1 Myocardial infarction type 2; N17.0 Acute kidney failure with tubular necrosis; K72.00 Acute and subacute hepatic failure without coma; J96.90 Respiratory failure, unspecified, unspecified whether with hypoxia or hypercapnia; E87.1 Hypo-osmolality and hyponatremia; E87.2 Acidosis; N13.6 Pyonephrosis; M62.82 Rhabdomyolysis; Z68.41 Body mass index [BMI] 40.0-44.9, adult; N25.81 Secondary hyperparathyroidism of renal origin; Z16.11 Resistance to penicillins; Z16.19 Resistance to other specified beta lactam antibiotics; E78.5 Hyperlipidemia, unspecified; E86.0 Dehydration; E78.00 Pure hypercholesterolemia, unspecified; F41.9 Anxiety disorder, unspecified; F32.9 Major depressive disorder, single episode, unspecified; F17.210 Nicotine dependence, cigarettes, uncomplicated; E87.5 Hyperkalemia; E87.8 Other disorders of electrolyte and fluid balance, not elsewhere classified; J45.909 Unspecified asthma, uncomplicated; K76.0 Fatty (change of) liver, not elsewhere classified; R74.0 Nonspecific elevation of levels of transaminase and lactic acid dehydrogenase [LDH]; D25.9 Leiomyoma of uterus, unspecified; E11.21 Type 2 diabetes mellitus with diabetic nephropathy; E66.01 Morbid (severe) obesity due to excess calories; I12.9 Hypertensive chronic kidney disease with stage 1 through stage 4 chronic kidney disease, or unspecified chronic kidney disease; N18.9 Chronic kidney disease, unspecified; E11.22 Type 2 diabetes mellitus with diabetic chronic kidney disease; D63.1 Anemia in chronic kidney disease; R60.0 Localized edema; D69.6 Thrombocytopenia, unspecified; E87.6 Hypokalemia; Z79.51 Long term (current) use of inhaled steroids; Z79.899 Other long term (current) drug therapy
CPT/HCPCS: 36415; 36416; 36569; 70450; 71045; 74176; 76770; 80048; 80053; 81001; 82010; 82306; 82550; 82553; 82570; 82805; 83036; 83516; 83605; 83735; 83970; 84100; 84145; 84156; 84300; 84443; 84484; 84540; 85007; 85025; 85027; 85049; 85060; 85300; 85362; 85379; 85384; 85610; 85730; 86038; 86160; 86200; 86225; 86376; 87040; 87077; 87086; 87149; 87186; 87324; 87449; 93005; 93010; 93306; 96365; 96366; A4217; C1751; J0360; J0696; J1644; J1815; J1940; J2185; J3480; J3490; J7042; J7050; J7070; P9047; S0028